=== PATIENT | female | born 1995 | race Caucasian/White ===

== ENCOUNTER 2022-10-28 07:54 | Outpatient (CLI) | payer OTHER, SELFPAY ==
--- NOTE | 2022-10-28 08:15 | CRLHL7_ITS ---
For Patients: As a result of the Century Cures Act, medical imaging exams and procedure reports are released immediately into your electronic medical record. You may view this report before your referring provider. If you have questions, please contact your health care provider. INDICATIONS: Positive ; dating and viability. Comparison: None. TECHNIQUE: Ob ultrasound. FINDINGS: Single viable intrauterine gestation of 11 weeks and 2 days duration. The crown-rump length is 4.4 cm. The diameter of the gestational sac is 4.6 cm. cardiac activity is 163 beats per minute. Right ovary is measuring 3.1 x 1.3 x 1.7 cm and the left ovary is measuring 3.9 x 2.4 x 2.7 cm. IMPRESSION: 1. Single viable intrauterine gestation of 11 weeks and 2 days duration with expected date of delivery 05/17/2023. 2. cardiac activity is 163 beats per minute. Dictated by Brian Love MD @ 10/28/2022 9:07:42 AM (Electronically Signed)
== END 2022-10-28 07:55 | disposition home or self-care (01) ==
LOC: US 07:55
PROVIDERS: Visit Provider Advanced Practice Midwife
DX: Z34.91 Encounter for supervision of normal pregnancy, unspecified, first trimester (principal); Z3A.10 10 weeks gestation of pregnancy
CPT/HCPCS: 76801; 86592; 86703; 86762; 86787; 86803; 86850; 86900; 86901; 87086; 87340

== ENCOUNTER 2023-01-02 09:57 | Outpatient (CLI) | payer OTHER, SELFPAY ==
--- NOTE | 2023-01-02 10:15 | CRLHL7_ITS ---
For Patients: As a result of the Century Cures Act, medical imaging exams and procedure reports are released immediately into your electronic medical record. You may view this report before your referring provider. If you have questions, please contact your health care provider. INDICATION: Evaluate anatomy. COMPARISON: .3 TECHNIQUE: Real time yin scale imaging of the fetus was performed as well as color Doppler analysis of the umbilical vessels. FINDINGS: Sonographic imaging demonstrates a single living intrauterine gestation. Fetus demonstrates a regular cardiac rate of 163 beats per minute. Fetus has a vertex position. The placenta lies posteriorly without evidence of placenta previa. The edge of the placenta is located 4.1 cm from the internal cervical os. Incidental placental [place] noted. Amniotic fluid volume appears normal. Single deepest vertical pocket: 4.4 cm. The cervix is closed and measures 3.4 cm in length. The composite ultrasound gestational age is calculated at 21 weeks 1 day with an estimated sonographic due date of 05/14/2023. The estimated weight is 348 grams which lies at the 57th %. The following biometric measurements were obtained: Biparietal diameter: 5.2 cm/21 weeks 6 days greater than 97th% Head circumference: 18.7 cm/21 weeks 0 days 81st% Abdominal circumference: 15.2 cm/20 weeks 3 days 53rd% Femur length: 3.2 cm/20 weeks 0 days 36th% The HC/AC ratio measures: 1.23 range (1.06-1.25) On anatomic survey, there is a normal appearance of the cerebral ventricles, cavum septi pellucidi, cisterna magna and cerebellum. The nose, lips, and facial profile appear normal. The cervical, thoracic and lumbar spine are well visualized and appear normal. There is a normal four-chamber heart view and the left and right ventricular outflow tracts appear normal. The diaphragm and stomach appear normal. The kidneys and bladder also appear normal. There is a normal three-vessel cord. Incomplete visualization of the placental cord insertion. The four extremities appear normal. IMPRESSION: Sonographic gestational age 21 weeks 1 day and sonographic due date 05/14/2023. Sonographic age is 7 days ahead of the clinical age. Normal anatomic survey. Incomplete visualization of the placental cord insertion. Dictated by Augusto Brown MD @ 01/02/2023 12:02:45 PM (Electronically Signed)
== END 2023-01-02 09:58 | disposition home or self-care (01) ==
LOC: US 09:58
PROVIDERS: Visit Provider Obstetrics & Gynecology
DX: Z34.92 Encounter for supervision of normal pregnancy, unspecified, second trimester (principal); Z3A.21 21 weeks gestation of pregnancy
CPT/HCPCS: 76805

== ENCOUNTER 2023-01-28 09:04 | Outpatient (CLI) | payer OTHER, SELFPAY ==
--- NOTE | 2023-01-28 09:15 | CRLHL7_ITS ---
For Patients: As a result of the Century Cures Act, medical imaging exams and procedure reports are released immediately into your electronic medical record. You may view this report before your referring provider. If you have questions, please contact your health care provider. Indication: visualization of placental cord insert not seen previously Technique: Grayscale and color Doppler ultrasound of the fetus performed. IMPRESSION: position vertex. Placenta posterior. heart rate 157 beats per minute. Normal amniotic fluid with single deepest pocket 5.6 cm. Eccentric cord insertion located 5 cm from the placental edge. Dictated by Augusto Brown MD @ 01/28/2023 11:03:08 AM (Electronically Signed)
== END 2023-01-28 09:05 | disposition home or self-care (01) ==
LOC: US 09:04
PROVIDERS: Visit Provider Obstetrics & Gynecology
DX: Z34.90 Encounter for supervision of normal pregnancy, unspecified, unspecified trimester (principal)
CPT/HCPCS: 76816

== ENCOUNTER 2023-02-18 08:12 | Outpatient (CLI) | payer OTHER, SELFPAY | END 2023-02-18 08:13 | disposition home or self-care (01) | LOC: NFLDREF 02-20 14:18 | PROVIDERS: Visit Provider Advanced Practice Midwife | DX: Z34.90 Encounter for supervision of normal pregnancy, unspecified, unspecified trimester (principal) | CPT/HCPCS: 87086 ==

== ENCOUNTER 2023-02-25 09:15 | Outpatient (CLI) | payer OTHER, SELFPAY | END 2023-02-25 09:16 | disposition home or self-care (01) | LOC: NFLDREF 02-27 09:09 | PROVIDERS: Visit Provider Obstetrics & Gynecology | DX: Z36.89 Encounter for other specified antenatal screening (principal); Z11.3 Encounter for screening for infections with a predominantly sexual mode of transmission | CPT/HCPCS: 86592 ==

== ENCOUNTER 2023-02-26 08:23 | Outpatient (CLI) | payer OTHER, SELFPAY | END 2023-02-26 08:24 | disposition home or self-care (01) | LOC: NFLDREF 03-01 12:21 | PROVIDERS: Visit Provider Obstetrics & Gynecology | DX: Z34.90 Encounter for supervision of normal pregnancy, unspecified, unspecified trimester (principal) | CPT/HCPCS: 82951; 82952 ==

== ENCOUNTER 2023-04-24 09:40 | Outpatient (CLI) | payer OTHER, SELFPAY ==
[2023-04-25 12:02] LABS: Strep B DNA Probe POSITIVE (Negative)
[2023-04-25 12:03] LABS: Strep B Pen/Amox Allergy No
== END 2023-04-24 09:41 | disposition home or self-care (01) ==
PROVIDERS: Visit Provider Advanced Practice Midwife
DX: Z34.93 Encounter for supervision of normal pregnancy, unspecified, third trimester (principal); Z3A.36 36 weeks gestation of pregnancy
CPT/HCPCS: 87081; 87653

== ENCOUNTER 2023-05-01 08:40 | Outpatient (CLI) | payer OTHER, SELFPAY | END 2023-05-01 08:41 | disposition home or self-care (01) | LOC: NFLDREF 05-03 06:34 | PROVIDERS: Visit Provider Advanced Practice Midwife | DX: Z34.93 Encounter for supervision of normal pregnancy, unspecified, third trimester (principal) | CPT/HCPCS: 87086 ==

== ENCOUNTER 2023-05-05 12:16 | Outpatient (CLI) | payer OTHER, SELFPAY ==
[2023-05-05 12:28] VITALS: BP 129/75; PULSE 69
[2023-05-05 12:30] VITALS: RESP 16; TEMP 36.8
[2023-05-05 13:07] VITALS: BP 119/64; PULSE 67
--- NOTE | 2023-05-05 17:37 | PC.OBNST ---
NST Note NST Note Start: 05/05/23 15:08 Freq: ONCE Status: Active Protocol: Document 05/05/23 13:15 JRConnie (Rec: 05/05/23 17:31 JRConnie [id number]) NST Note 1 Para (# of births) 0 EDC 05/21/23 Gestational Age In Weeks & Days 37 Weeks & 5 Days Patient Presented with Complaint(s) of Other Other Complaints Spots in her eyes Reactive Yes Appropriate for Gestational Age Yes RN Swetha Yao RN Date 05/05/23 Reactive Yes Appropriate for Gestational Age Yes MATTHEW Cisneros RN Date 05/05/23 OB NST charge Yes Complete NST Note via Write Note Yes The provider's electronic signature indicates the NST is reactive/appropriate for gestational age. *Note to provider: If an addendum is required, open the patient's chart and click on the note under the Nurse/Allied Health tab.
== END 2023-05-05 13:25 | disposition home or self-care (01) ==
LOC: OB OUT 12:17 → OB 12:17
PROVIDERS: Visit Provider Advanced Practice Midwife
DX: Z34.93 Encounter for supervision of normal pregnancy, unspecified, third trimester (principal); Z3A.38 38 weeks gestation of pregnancy
CPT/HCPCS: 59025; 99213

== ENCOUNTER 2023-05-29 06:48 | Inpatient (IN) | payer OTHER, SELFPAY ==
[2023-05-29] VITALS (10 sets, daily range): BP systolic 114–138; BP diastolic 56–86; PULSE 61–109; RESP 16; TEMP 36.3–37; O2SAT 98; BMI 39.2
[2023-05-29] MEDS: miSOPROStoL 25 MCG/0.25 TABLET VAGINAL ×3 (07:26→21:56)
--- NOTE | 2023-05-29 07:27 | P.LDBA_ITS ---
Subjective History of Present Illness Narrative: Patient is being admitted to Labor and Delivery for IOL for postdates at 41.1 weeks. She is a 28 year old at weeks gestation. Her full history and physical was dictated by Swetha Foster CNM on 05/01/23. Please see this for details. 1. Hx of Depression No medication or therapy 2. BMI 35 at NOB Recommended baby ASA 3. FAS: Umbilical cord insertion not visualized? * Follow up US ordered for 24 weeks: Eccentric cord insertion4. Failed 1 hr GCT (150), passed 3 hr 5. GBS positive, needs antibiotics in labor 6. Symptomatic UTI at 37wks, treated with Augmentin OB - Problem Based A/P Additional Plan (1) Encounter for induction of labor: Status: Acute (2) Obesity (BMI 35.0-39.9 without comorbidity): Status: Acute (3) Post term at 41 weeks gestation: Status: Acute Plan ASSESSMENT:? at 41.1 weeks gestation? GBS positive? Uncomplicated ? Postterm IOL? ?? PLAN:? 1. Antibiotic prophylaxis treatment per protocol when labor begins.? 2. Reviewed risks and benefits of IOL with pitocin vs cytotec. Pt prefers cytotec. Pitocin to follow if needed.? 3. Candidate for analgesia of choice. Planning epidural but also open to unmedicated depending on how things proceed.? 4. Anticipate ? 5. IV to be placed when antibiotics needed or as patient condition changes. 6. Monitoring per Cytotec policy.? Delivery/Labor/Induction Plan Plan: induction Induction method: per misoprostol protocol OB Exam Physical Exam Vital signs: Pulse BP 74 138/86 05/29/23 07:09 05/29/23 07:09 Narrative: Psychiatric:? Alert and oriented x3? HEENT:? Normocephalic, atraumatic? Neck:? Supple without adenopathy or thyromegaly? Lungs:? Clear to auscultation bilaterally? Heart:? Regular rate and rhythm, no murmur, rub or gallop? Abdomen:? Soft, nontender, and gravid? Extremities:? No edema or erythema? Pelvic:? SVE: 1cm/60-70%/-2? Membrane status:? intact? presentation:? vertex? FHT:? Moderate Variability.? Positive Accels.? No Decels. Baseline 135.? [place]:? Ctx irregular? Detailed Labor and Delivery Exam Patient Gravid: Yes Dilation (cm): 1 Effacement (%): 70 Cervix position: anterior Consistency: medium Contraction Frequency: cramping only, not feeling any contractions Fetus (Single) Station: -2 Amniotic Membrane Status: intact
[2023-05-29 07:57] LABS: Basophils Absolute Auto 0.03 K/uL (0.00-0.30); Basophils Percent Auto 0.3 % (0.0-3.0); Eosinophils Absolute Auto 0.08 K/uL (0.00-0.50); Eosinophils Percent Auto 0.8 % (0.0-7.0); Hematocrit 34.6 % (33.0-51.0); Hemoglobin* 11.4 gm/dL (12.0-16.0); Immature Granulocytes Abs Auto 0.03 K/uL (0.00-0.30); Immature Granulocytes Pct Auto 0.3 %; Lymphocytes Absolute Auto 2.62 K/uL (0.90-2.90); Lymphocytes Percent Auto 27.3 % (20-44); Mean Corpuscular HGB Conc 33 gm/dL (32-36); Mean Corpuscular Hemoglobin 30 pg (26-34); Mean Corpuscular Volume 91 fL (80-100); Monocytes Percent Auto 5.5 % (0.0-11.0); Neutrophils Percent Auto 65.8 % (42.0-72.0); Platelet Count* 158 K/uL (140-440); White Blood Count* 9.59 K/uL (4.50-11.00)
[2023-05-29 08:12] LABS: Slide Review Reflex No
--- NOTE | 2023-05-29 18:50 | PM.OBPNL ---
Subjective Date Seen: 05/29/23 Narrative: Lizy received 2 doses of vaginal Cytotec. She was chantel too frequently for a third dose so that was held. She has continued to contract every 1-3 min. She is feeling the contractions more than previously but is still comfortable with them and able to talk through them. A SVE was performed and she has changed to 2.5cm/70%/-2. Options were discussed including expectant management or Pitocin augmentation. she would like to proceed with expectant management at this time and reevaluate after a few hours. She is changeing posiitons and d the labor wam up circuit. She may try to pump to see if that increases her contractions. She was also encouraged to take a short nap if possible. Objective Vital Signs: Last Vital Signs Temp 98.6 F 05/29/23 17:59 Pulse 67 05/29/23 17:58 Resp 16 05/29/23 17:59 BP 135/75 05/29/23 17:58 Pulse Ox 98 05/29/23 13:22 Pelvic Exam Dilation (cm): 2.5 Effacement (%): 70 Station: -2 Contractions Monitor mode: External Contraction Frequency: 1-3 Contraction pattern: Regular Assessment Assessment: induction ongoing Station: -2 Status: Category l Heart Rate Baseline: 115 Medical Doctor Md Variability: Moderate (6-25) Monitor Accelerations: Present Monitor Decelerations: None Plan Plan: expectant management. GBS treatment when she becomes active.
[2023-05-30] VITALS (10 sets, daily range): BP systolic 124–143; BP diastolic 62–76; PULSE 58–95; RESP 16–18; TEMP 36.8–37.2; O2SAT 99
[2023-05-30] MEDS: CALCIUM CARBONATE 500 MG CHEW PO (01:09)
[2023-05-30] MEDS: miSOPROStoL 25 MCG/0.25 TABLET VAGINAL ×3 (02:15→12:36)
[2023-05-30] MEDS: ONDANSETRON 2 MG/ML inj 4 MG IV ×2 (08:15→20:59)
[2023-05-30] MEDS: SODIUM CHLORIDE 0.9 % (FLUSH) 10 ML SYRINGE IVF (08:15)
[2023-05-30] MEDS: LACTATED RINGERS 1000 ML 1,000 ML IV (08:47)
[2023-05-30] MEDS: DINOPROSTONE 10 MG VAGINAL INSERT VAGINAL (16:11)
--- NOTE | 2023-05-30 16:50 | PM.OBPNL ---
Subjective Time Seen by Provider: 10:00 Date Seen: 05/30/23 Narrative: Lizy continued to receive vaginal cytotec overnight when able. She would frequently have too many contractions to be able to administer then next dose which were then held until she was able to get them. She felt that overnight the contractions did increase in intensity slightly but didn't feel that they were painful only that she could tell she was having them. They palpated mild. Her cervix was checked this morning and found to be unchanged with baby less applied to the cervix. She was able to sleep some overnight. She alternated between sleeping when able and movement and position changes. Will continue with cytotec induction today as her contractions have spaced out some. Encouraged her to continue with labor warm up circuits, pumping, changing positions and resting. Objective Vital Signs: Last Vital Signs Temp 98.2 F 05/30/23 16:12 Pulse 58 L 05/30/23 16:09 Resp 16 05/30/23 16:12 BP 131/62 05/30/23 16:09 Pulse Ox 99 05/30/23 10:12 Pelvic Exam Dilation (cm): 2.5 Effacement (%): 70 Station: -2 Contractions Monitor mode: External Contraction pattern: Regular Assessment Assessment: induction ongoing Station: -3 Status: Category l Heart Rate Baseline: 115 Residential Variability: Moderate (6-25) Monitor Accelerations: Present Monitor Decelerations: None Plan Plan: Continue with Cytotec induction.
[2023-05-30] MEDS: hydrOXYzine pamoate 25 MG CAPSULE 100 MG PO (20:59)
[2023-05-30] MEDS: MORPHINE 10 MG/ML inj IM (21:00)
[2023-05-31] VITALS (19 sets, daily range): BP systolic 110–141; BP diastolic 52–75; PULSE 61–96; RESP 16–18; TEMP 36.6–37.3
[2023-05-31] MEDS: LACTATED RINGERS 1000 ML 1,000 ML 125 ML IV ×3 (05:14→20:39)
[2023-05-31] MEDS: OXYTOCIN 30 unit/500 ML in NS 30 UNIT/500 ML BAG IVPB (05:14)
[2023-05-31] MEDS: AMPICILLIN 2 GM in 0.9 % SODIUM CHLORIDE Mini-bag 100 ML IVPB (05:35)
[2023-05-31] MEDS: AMPICILLIN 1 GM in 0.9 % SODIUM CHLORIDE Mini-bag 100 ML IVPB ×4 (09:27→21:42)
--- NOTE | 2023-05-31 13:50 | PM.OBPNL ---
Subjective Time Seen by Provider: 10:00 Date Seen: 05/31/23 Narrative: Lizy has continued to contract but they have been mild. After a discussion last night the decision was made to place Cervidil. She was agreeable to this plan. She tolerated this well and was given Morphine and Vistaril for sleep over night. She did get a good nights sleep. She was started on IV Pitocin this morning after the Cervidil was removed. She is ambulating, doing labor circuit, labor warmups, and changing positions frequently. Will continue to increase the Pitocin as able per unit policy. Objective Vital Signs: Last Vital Signs Temp 97.8 F 05/31/23 11:40 Pulse 72 05/31/23 13:11 Resp 16 05/31/23 11:40 BP 121/58 L 05/31/23 13:11 Pulse Ox 99 05/30/23 10:12 Pelvic Exam Dilation (cm): 4 Effacement (%): 80 Station: -2 Contractions Monitor mode: External Contraction pattern: Irregular Contraction intensity: Mild Assessment Station: -2 Status: Category l Heart Rate Baseline: 120 [employer] Variability: Moderate (6-25) Monitor Accelerations: Present Monitor Decelerations: None Plan Plan: Induction ongoing. Continue with Pitocin titration per policy. Anticipate vaginal delivery. GBS prophylaxis is being administered. Encourage position changes and rest as able.
[2023-05-31] MEDS: SODIUM CHLORIDE 0.9 % (FLUSH) 10 ML SYRINGE IVF (22:26)
[2023-05-31] MEDS: ONDANSETRON 2 MG/ML inj 4 MG IV (22:26)
--- NOTE | 2023-05-31 23:18 | P.OBPN_ITS ---
Subjective Date Seen: 05/31/23 Narrative: Lizy has continued to contract mildly throughout the day. Around 1700 a SVE reveled that she had made very minimal cervical change despite the fact that her Pitocin was at 18mU. Baby did feel lower and more applied to the cervix at that time so with joint decision making it was decided to AROM. She had copious amounts of clear fluid at the time of rupture and it was well tolerated by both the patient and the fetus. Her contractions did gradually increase slightly in intensity after that. Around 1829 her contractions were closely spaced and the RN turned down the pitocin. It has been increased regularly since then and she is not at 18mU. Objective Vital Signs: Last Vital Signs Temp 99.2 F 05/31/23 18:39 Pulse 69 05/31/23 19:36 Resp 18 05/31/23 18:39 BP 133/68 05/31/23 19:36 Pulse Ox 99 05/30/23 10:12 Pelvic Exam Dilation (cm): 5 Effacement (%): 90 Station: -1 Contractions Monitor mode: External Assessment Assessment: induction ongoing Station: -1 Amniotic Membrane Status: AROM Status: Category l Heart Rate Baseline: 115 Longterm Variability: Moderate (6-25) Monitor Accelerations: Present Monitor Decelerations: None Plan Plan: Continue with Pitocin induction. Consider IUPC if needed to continue titrating.
[2023-06-01] VITALS (54 sets, daily range): BP systolic 94–159; BP diastolic 51–89; PULSE 49–94; RESP 16–18; TEMP 36.6–37.5; O2SAT 96–100
[2023-06-01] MEDS: AMPICILLIN 1 GM in 0.9 % SODIUM CHLORIDE Mini-bag 100 ML IVPB ×5 (02:23→16:40)
[2023-06-01] MEDS: ONDANSETRON 2 MG/ML inj 4 MG IV ×2 (02:23→11:11)
[2023-06-01] MEDS: LACTATED RINGERS 1000 ML 1,000 ML 125 ML IV (04:40)
[2023-06-01] MEDS: ROPIVACAINE 0.2 % PF 10 ML INJ 20 MG EPIDURAL (07:39)
[2023-06-01] MEDS: ROPIVACAINE 0.2% 100 ml 100 ML 12 MG EPIDURAL (07:41)
--- NOTE | 2023-06-01 07:55 | PM.ANBPRC ---
PFSH PFS Medical History (Updated 05/29/23 @ 07:32 by Elisabet Foster CNM) Episode of syncope ?R55 - Syncope and collapse (ICD-10) Surgical History (Updated 10/28/22 @ 09:15 by Fariha Dash CNM) [place] teeth removed ?K08.409 - Partial loss of teeth, unspecified cause, unspecified class (ICD-10) Hx of tonsillectomy ?Z90.89 - Acquired absence of other organs (ICD-10) Family History (Updated 05/01/23 @ 12:48 by Elisabet Foster CNM) Mother High blood pressure Depression High cholesterol Fibromyalgia Father Alcohol dependence Prostate cancer Brother No problems noted. 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 Lives with: David Pets: 2 dogs Abuse: Denies past/present Special Diet: Denies Ok with a blood transfusion: yes Culture or latter day beliefs: denies RISK FACTORS Exercise Times/wk: 3x/week walking/weight lifting Depression/Anxiety: Depression NOB JIMENA: 5 PHQ 9: 4 Seat Belt Use: Routinely Smoking: Denies past/present Alcohol/day: Denies while ; Social Caffeine: 1 pop or coffee per day Drug Use: Denies past/present Chicken Pox: Not as a child, vaccinated MRSA: Denies What is your current living situation?: I presently have a place to live Problems where you live: no known problems In the past 12 months, utilities in danger of being shut off: no In the past 12 mos, have been you worried that your food would run out before you had money to buy more?: never true In the past 12 mos, the food you bought just didn't last and you didn't have money to buy more?: never true Smoking Status: Never smoker How often does anyone, including family, friends and others, physically hurt you: never How often does anyone, including family, friends and others, insult or talk down to you: never How often does anyone, including family, friends and others, threaten you with harm: never How often does anyone, including family, friends and others, scream or curse at you: never Little interest or pleasure in doing things: not at all Feeling down, depressed, or hopeless: not at all Meds Home Medications and Allergies Home Medications Medication Instructions Recorded Confirmed Type prenat.vits,heidy,dgg-aptf-pxsfk 1 tab PO QDAY 10/28/22 05/29/23 History aspirin 81 mg tablet,delayed 81 mg PO QDAY 12/11/22 05/29/23 History release calcium carbonate 500 mg calcium 500 mg PO QDAY 03/13/23 05/29/23 History (1,250 mg) chewable tablet docusate sodium 100 mg capsule 100 mg PO QDAY PRN 05/01/23 05/29/23 History (Colace) Allergies Allergy/AdvReac Type Severity Reaction Status Date / Time No Known Drug Allergies Allergy Verified 05/21/23 12:53 Results Vital Signs Vital Signs: Last Vital Signs Temp 99.2 F 05/31/23 18:39 Pulse 65 06/01/23 07:54 Resp 18 05/31/23 18:39 BP 100/55 L 06/01/23 07:54 Pulse Ox 100 06/01/23 07:33 Weight: 105.233 kg Height: 163.83 cm Anesthesia Procedures Epidural Insertion Patient Location: OB Start Time: 07:15 Stop Time: 08:00 Start Date: 06/01/23 Stop Date: 06/01/23 Reason for Block: procedure for pain Patient Position: sitting Performed By: Bozena Valencia Preanesthetic Checklist: IV checked, risks and benefits discussed, monitors and equipment checked, timeout performed and anesthesia consent Prep: chlorhexidine gluconate Monitoring: blood pressure monitoring, continuous pulse oximetry and heart rate Approach: midline Vertebral Space: lumbar (1-5) Epidural Technique: ADRIAN saline Needle Type: Tuohy needle Injection Technique: continuous catheter Needle gauge: 17 Needle Length (cm): 10 cm Needle Insertion Depth (cm): 6 Catheter Gauge: 19 Catheter Type: multi-orifice Catheter at skin depth (cm): 12 Test Dose Result: negative and lidocaine 1.5% with epinephrine 1 to 200,000
--- NOTE | 2023-06-01 08:13 | PM.OBPNL ---
Subjective Time Seen by Provider: 07:30 Date Seen: 06/01/23 Narrative: Lizy is a G1 at 41 4/7 weeks gestation that was admitted on 05/29 for IOL for post-dates. She made slow progress with cytotec and pitocin before AROM yesterday. She has made slow progress. Pitocin has continued to be titrated. She is currently managing labor pain with nitrous. Her partner is supportive at bedside. Objective Vital Signs: Last Vital Signs Temp 99.2 F 05/31/23 18:39 Pulse 62 06/01/23 08:09 Resp 18 05/31/23 18:39 BP 95/51 L 06/01/23 08:09 Pulse Ox 100 06/01/23 07:33 Pelvic Exam Dilation (cm): 8 Effacement (%): 90 Station: -1 Contractions Monitor mode: External Contraction pattern: Regular Contraction intensity: Strong/Firm Pitocin Rate (mU/min): 22 Assessment Assessment: active labor Station: -1 Amniotic Membrane Status: AROM Status: Category l Heart Rate Baseline: 125 Mcfp Variability: Moderate (6-25) Monitor Accelerations: Present Monitor Decelerations: None Maternal Status: Coping well with nitrous but starting to feel tired and tearful. Reports intermittent pressure but has anxiety about progression. Plan Plan: ASSESSMENT:? at 41.1 weeks gestation? GBS positive? Uncomplicated ? Postterm IOL? ?? PLAN:? 1. Antibiotic prophylaxis treatment per protocol, continue every 4 hours until delivery. 2. Continue pitocin augmentation per protocol. Consider IUPC for better titration/management of Pitocin. 3. Candidate for analgesia of choice. Planning epidural but also open to unmedicated depending on how things proceed.?Discussed options and encouraged her to consider epidural for rest, she has been laboring since Thursday. 4. Continuous monitoring with IV pitocin. 5. Continue to encourage frequent position changes to ensure optimal position. 6. Anticipate ?
[2023-06-01] MEDS: OXYTOCIN 30 unit/500 ML in NS 30 UNIT/500 ML BAG 15 UNIT IVPB (11:08)
[2023-06-01] MEDS: LACTATED RINGERS 1000 ML 1,000 ML 105 ML IV (12:22)
--- NOTE | 2023-06-01 15:06 | PM.OBPNL ---
Subjective Date Seen: 06/01/23 Narrative: Lizy is a G1 at 41 4/7 weeks gestation that was admitted on 05/29 for IOL for post-dates. Her induction was started on Thursday with Cytotec. On Thursday she had cervadil overnight. Pitocin was started yesterday morning. She was then AROM'd with clear fluid last evening at 1730. This morning she has had minimal progress. Her first exam this morning was unchanged from previous, I felt her cervix was more 6-7/80/-1 this morning, anterior, and midline. Previously, cervical exam was 8/0 with cervix mostly gone on the left side. An IUPC was placed about 930 am this morning and a pitocin holiday was taken before it was restarted at 13 and slowly increased. Her MVU's are not yet adequate but patient desires cervical exam for reassurance that cervix is not swelling. She is currently on 23 units of pitocin. Objective Exam: Objective: Constitutional: Alert and oriented x3, no distress, coping well Vital signs stable, see nurse documentation Abdomen: gravid, contractions palpate moderate with contractions and soft between Vital Signs: Last Vital Signs Temp 99.5 F 06/01/23 14:52 Pulse 67 06/01/23 14:56 Resp 16 06/01/23 14:52 BP 128/60 06/01/23 14:56 Pulse Ox 100 06/01/23 07:33 Pelvic Exam Dilation (cm): 7 Effacement (%): 80 Station: -1 Contractions Monitor mode: External Contraction Frequency: not adequate, frequent Contraction pattern: Irregular Contraction intensity: Moderate Pitocin Rate (mU/min): 23 Assessment Assessment: active labor Station: -1 Amniotic Membrane Status: AROM Status: Category l Heart Rate Baseline: [address] Variability: Moderate (6-25) Monitor Accelerations: Present Monitor Decelerations: None Labor Progress: Cervical exam has been unchanged in hour despite IUPC placement, position changes, and Pitocin. Maternal Status: Coping well. Comfortable with epidural. Plan Plan: at 41.1 weeks gestation? GBS positive? Uncomplicated ? Postterm IOL? ?? PLAN:? 1. Cervical exam unchanged from this morning. Reviewed concern with no change in many hours, risk of infection, risk of bleeding, and position. Discussed options of a section with Dr. Figueroa or continue pitocin to attempt to get adequate contractions. She requested to discuss this with partner in private. Dr. Figueroa was consulted while patient was considering her options. She agrees with plan when patient ready. At this time it is not emergent, reassuring status. All questions answered. Patient notified us that she would like to proceed with section. 2. Continue epidural management for pain 3. Antibiotic prophylaxis treatment per protocol, continue every 4 hours until delivery. 4. IV Pitocin stopped. 5. Proceed with section. Care transferred to Dr. Figueroa for delivery.
[2023-06-01] MEDS: SCOPOLAMINE 1 MG/3 DAY PATCH 1 PATCH TRANSDERMA (16:05)
--- NOTE | 2023-06-01 16:21 | P.OBCN_ITS ---
OB - CN: HPI Date of Consult Time Seen by Provider: 16:30 Date Seen: 06/01/23 Patient: [facility] Patient Consult date: 06/01/23 Requesting Physician: Elisabet Foster CNM Primary Care Provider: Not a Local Provider Consult Narrative Reason for consult: arrest of labor Narrative: Lizy is a 28 year old G 1 P 0 at 34.4 weeks gestation that was admitted to the Center on 05/29/23 for postdate induction of labor. I was consulted by Fariha Dash CNM due to concern of arrest of dilation. Her induction was started on Thursday with Cytotec. On Thursday she had cervadil overnight. Pitocin was started yesterday AM. She was then AROM'd with clear fluid last evening at 1 730. She is currently >24 hours ruptured and > 30 hours on pitocin. An IUPC was placed by CHANDANA Dash this AM at 0930 and Lizy has had inadequate contractions since then. She has been unchanged since IUPC placement over 6 hours ago (/ per CHANDANA report). Currently NST is Cat I. I discussed with Lizy that it is highly unlikely that she will be able to have a vaginal delivery no matter how long we wait given her labor curve. Continuing with induction would put her and fetus at increased risk for nonreassuring heart tracing, infection, complicated delivery, hemorrhage etc. She is at high risk for hemorrhage given prolonged induction and greater than 30 hours on Pitocin. I am also concerned for chorioamnionitis as patient feels very warm to me during my physical exam. Her RN reports that her temperature has been up trending but she has not had a true fever yet. Lizy was tearful and disappointed during our discussion but she understand the situation. She is very nervous about a delivery but has a great support system. History History 1 Elective abortions Para 0 Spontaneous abortions Hx # Term Pregnancies 0 Ectopic pregnancies Hx # Pregnancies Multiple births Number of Living Children 0 Labs GBS status: positive OB Labs: Lab Assessment Start: 05/29/23 07:12 Freq: ONCE Status: Complete Protocol: PC.OBGBS Activity Type Activity Date Activity User E-sign Co-sign Detail Recorded Client Recorded Date Recorded By Document 05/31/23 05:26 AM [id number] 05/31/23 05:26 AM 05/31/23 05:26 Lab Assessment GBS Status positive Is Patient Allergic to Penicillin? No Treatment Required OK PFSH PFSH Medical History (Updated 06/01/23 @ 20:33 by Britt Figueroa MD) Episode of syncope ?R55 - Syncope and collapse (ICD-10) Surgical History (Updated 10/28/22 @ 09:15 by Fariha Dash CNM) Stella teeth removed ?K08.409 - Partial loss of teeth, unspecified cause, unspecified class (ICD- 10) Hx of tonsillectomy ?Z90.89 - Acquired absence of other organs (ICD-10) Family History (Updated 05/01/23 @ 12:48 by Elisabet Foster CNM) Mother High blood pressure Depression High cholesterol Fibromyalgia Father Alcohol dependence Prostate cancer Brother No problems noted. 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 Lives with: David Pets: 2 dogs Abuse: Denies past/present Special Diet: Denies Ok with a blood transfusion: yes Culture or church beliefs: denies RISK FACTORS Exercise Times/wk: 3x/week walking/weight lifting Depression/Anxiety: Depression NOB JIMENA: 5 PHQ 9: 4 Seat Belt Use: Routinely Smoking: Denies past/present Alcohol/day: Denies while ; Social Caffeine: 1 pop or coffee per day Drug Use: Denies past/present Chicken Pox: Not as a child, vaccinated MRSA: Denies What is your current living situation?: I presently have a place to live Problems where you live: no known problems In the past 12 months, utilities in danger of being shut off: no In the past 12 mos, have been you worried that your food would run out before you had money to buy more?: never true In the past 12 mos, the food you bought just didn't last and you didn't have money to buy more?: never true Smoking Status: Never smoker How often does anyone, including family, friends and others, physically hurt you : never How often does anyone, including family, friends and others, insult or talk down to you: never How often does anyone, including family, friends and others, threaten you with harm: never How often does anyone, including family, friends and others, scream or curse at you: never Little interest or pleasure in doing things: not at all Feeling down, depressed, or hopeless: not at all Meds Home Medications and Allergies Home Medications Medication Instructions Recorded Confirmed Type prenat.vits,heidy,pqu-wyve-rizrr 1 tab PO QDAY 10/28/22 05/29/23 History aspirin 81 mg tablet,delayed 81 mg PO QDAY 12/11/22 05/29/23 History release calcium carbonate 500 mg calcium 500 mg PO QDAY 03/13/23 05/29/23 History (1,250 mg) chewable tablet docusate sodium 100 mg capsule 100 mg PO QDAY PRN 05/01/23 05/29/23 History (Colace) Allergies Allergy/AdvReac Type Severity Reaction Status Date / Time No Known Drug Allergies Allergy Verified 05/21/23 12:53 OB - H&P: Exam Physical Exam: Vital signs: Temp Pulse Resp BP Pulse Ox 99.4 F 60 16 111/56 L 100 06/01/23 15:35 06/01/23 16:13 06/01/23 15:35 06/01/23 16:13 06/01/23 07:33 Narrative: Physical exam: General: Appropriately tearful Psych: Alert and oriented x3, full affect HEENT: Normocephalic, atraumatic Lungs: Unlabored breathing Neuro: No focal deficit. Mentating appropriately Abdomen: Gravid. Soft, nontender, nondistended Extremity: 3+ bilateral pitting lower extremity edema up to her thighs Pelvic exam: Deferred to OR OB - CN: A/P Assessment and Plan (1) Encounter for induction of labor: Status: Acute (2) Obesity (BMI 35.0-39.9 without comorbidity): Status: Acute (3) Post term at 41 weeks gestation: Status: Acute (4) Chorioamnionitis: Status: Acute Plan - Arrest of dilation - Lizy was consented for section and blood. She understands that the three main categories of risk include bleeding, infection, and damage to surrounding structures. Regarding infection, she understands that we will be delivering appropriate antibiotics, however that the risk of infection following section still is approximately 5%. I suspect she has chorioamnionitis and will treat her with triple antibiotics. She understands that though the risk is very low that there is always a risk of damage to the bladder, uterus, ovaries, fallopian tubes, bowels, ureters, or even the fetus. She understands that most injuries can be addressed at the time of surgery, however, such an injury may require additional surgeries to fix. Lastly, she understands that a section carries a risk of bleeding, and that while this bleeding can be addressed with multiple medical and surgical modalities, that there is the possibility of needing a blood transfusion. She has two units typed and crossed due to O negative blood shortage. She reports she would accept a blood transfusion understanding the risks of a 1/200,000 risk of Hepatitis and 1/2,000,000 risk of HIV as well as the risk of having an allergic reaction to the blood products. She further understands that this reaction is typically mild, however can be severe including respiratory distress and necessitating ICU-level care. Lastly, she understands that a section does increase risks for future pregnancies and deliveries including, but not limited to, the risk of uterine rupture or placenta accreta. - Hgb 11.4/158 - Will proceed with primary delivery
[2023-06-01] MEDS: LACTATED RINGERS 1000 ML 1,000 ML 120 ML IV (16:52)
[2023-06-01] MEDS: metroNIDAZOLE 500 MG/100 ML PIGGYBACK 100 MG IVPB (17:11)
[2023-06-01] MEDS: LOPERAMIDE HCL 2 MG CAPSULE 4 MG PO (18:05)
--- NOTE | 2023-06-01 18:11 | W.ANESCHARGE ---
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
--- NOTE | 2023-06-01 18:12 | P.NB_ITS ---
Nerve Block Nerve Block Time Seen by Provider: 17:55 Date Seen: 06/01/23 Type of block requested by surgeon for post-operative analgesia: TAP Side: bilateral Time out performed: Yes Verification of patient name: Yes Verification of date of : Yes Site marking: not applicable Name of person performing procedure: josy Continuous monitoring Was continuous monitoring of O2 sat, B/P, cardiac exercise physiologist, recorded every 15 minutes?: Yes Procedure Checklist: sterile prep, needles and gloves Ultrasound guided. Images saved: Yes Medications given in 5ml increments after negative aspiration: Marcaine %: 0.25 mL: 30 Needle gauge: 20 and Exparel mL: 10 Patient tolerated procedure well: Yes Block Charges Block Charge (with Pro Fee): TAP Bilateral Use of Ultrasound Machine for Block: Yes- US Guidance/pain block
--- NOTE | 2023-06-01 20:35 | PM.OBPRCCS ---
Procedure Time Seen by Provider: 17:00 Date of procedure: 06/01/23 Procedure Done: Global Will [facility] bill your pro fee for this procedure?: Yes Procedure Description: DELIVERY BY SECTION Date of Service: 06/01/2023 Delivery time: 1657 Summary: Admitted for induction of labor at 41 weeks, primary lower uterine transverse section, Pfannenstiel, Laufe forceps assisted delivery, Closed with suture, QBL 559 cc, severe uterine atony/chorioamnionitis Findings: Cervical exam in the OR revealed 6/75/-2. head was unexpectedly high given her prolonged induction. Caput noted to -1 but skull station was -3/-2. Copious amount of purulent discharge with malodor noted on glove after SVE. Blood tinged urine prior to surgery noted. Bladder full despite Ding catheter in place. was in OT position and covered with meconium and purulent discharge. Nuchal cord x 2, umbilical cord around body and right ankle. Placenta with thick green discharge (sent to pathology). Severe uterine atony after delivery of the baby. 2 x 1 cm lower uterine segment hematoma noted on left uterine angle (non expanding). Otherwise, structurally normal uterus, bilateral ovaries and tubes 8/9, weight 4130 g. Primary Indication: Arrest of dilation Chorioamnionitis Procedures: Primary Lower uterine transverse section Specimens Removed: Placenta Surgeon: Britt Figueroa MD Veneer Joiner Surgeon: Randolph Anesthesia: Epidural and TAP block Report: Prophylactic antibiotic, 2g ampicillin, 5mg/kg gentamicin, 500 mg metronidazole was given before incision. After arrival to the operating room patient was placed in the supine position with left lateral tilt after redosing of epidural anesthesia. Laparotomy A pfannenstiel incision was made through the anterior abdominal wall with #10 scalpel approximately 2 cm above the pubic symphysis. The incision was extended sharply with the #10 scalpel through the subcutaneous tissue to the level of fascia. The fascia was entered sharply with a #10 scalpel (Pfannenstiel) in the midline and extended in semi-elliptical fashion with digits. The rectus muscles were in the midline bluntly with digits. The peritoneum was then entered bluntly. The peritoneal incision was then extended superiorly and inferiorly under direct visualization with care being taken to avoid bladder and bowel. No adhesions were noted. The peritoneal incision was enlarged bluntly by lateral traction from the surgeon's and engineer first assistant's hand. Olivier retractor was inserted into the abdomen. Delivery A bladder flap was developed by grasping with Moldovan forcep and enter with Metzenbaun scissor. Then sharp and blunt dissection with Metzenbaum scissor and fingers were performed. A low transverse hysterotomy was made then with #10 scalpel and extended laterally and cephalad with fingers in a low transverse fashion with Manu Andino technique with care being taken to avoid injury to the fetus. The amniotic cavity (membrane) was then entered with spontaneous rupture of membrane, and the amniotic fluid was noted to be thick meconium. Unable to delivery head with fundal pressure times and fetus feels tethered. Decision was made with place Laufe forceps to assist with delivery. Laufe forceps placed at appropriate positions and articulated easily. Gentle traction was use to delivery head and forceps was disarticulated with the delivery of the head. Fetus was delivered cephalic. Fetus wrapped in umbilical cord as stated above, reduced. With delivery of the baby, no extension was noted. Placenta was delivered spontaneously with steady traction on cord and manual separation of placenta from uterine wall. Closure Uterine cavity was cleaned after placental delivery with lap sponge x 3. The hysterotomy was closed in one layer with stitches using 0 Vicryl with continuous locking stitches. An imbricating layer was placed with 0 Monocryl. Two yfnbog-il-doeant were placed at bilateral uterine angle. A 2 x 1 cm lower uterine segment hematoma was noted at the left uterine angle. This was non expanding. Hemostasis was achieved as needed with electrocautery. Luis was apply to the hysterotomy and bladder flap due to friable tissue. The ovaries/tubes/uterine surface were evaluated. They were as stated above. Olivier retractor removed and hemostasis was confirmed again. Fascia was closed with running stitches using 0 Vicryl. Hemostasis was checked for and found to be adequate. The subcutaneous layer was closed with running 2-0 chromic sutures. The skin was closed with Vicryl subcuticular sutures. The incision was cleaned and covered with Steri-Strips and silver dressing. Intraoperative Complications: Sever uterine atony QBL: 559 cc Uterotonics: 40 u of pitocin, 1g of TXA x1, Methergine x1, Hemabate x2 Disposition: The patient tolerated the procedure well. She was recovered in Obstetric PACU for close monitoring in stable condition, with a contracted uterus and normal transvaginal bleeding. The infant was sent to mother?s bedside/PACU. The placenta was sent to pathology. [place] Infant total score - 1 minute: 8 total score - 5 minute: 9
[2023-06-01] MEDS: DOCUSATE SODIUM 100 MG CAPSULE PO (21:48)
[2023-06-01] MEDS: ACETAMINOPHEN 500 MG TABLET 1000 MG PO (21:48)
[2023-06-01] MEDS: AMPICILLIN 2 GM in 0.9 % SODIUM CHLORIDE Mini-bag 100 ML IVPB (22:45)
[2023-06-01] MEDS: KETOROLAC 30 MG/ML inj IVP (23:08)
[2023-06-02] VITALS (19 sets, daily range): BP systolic 102–119; BP diastolic 63–76; PULSE 53–75; RESP 14–18; TEMP 36.6–36.8; O2SAT 95–99
[2023-06-02] MEDS: KETOROLAC 30 MG/ML inj IVP ×4 (00:40→18:13)
[2023-06-02] MEDS: metroNIDAZOLE 500 MG/100 ML PIGGYBACK 100 MG IVPB ×3 (00:42→19:12)
[2023-06-02] MEDS: ACETAMINOPHEN 500 MG TABLET 1000 MG PO ×3 (04:06→20:49)
[2023-06-02] MEDS: AMPICILLIN 2 GM in 0.9 % SODIUM CHLORIDE Mini-bag 100 ML IVPB ×3 (04:51→18:24)
[2023-06-02 06:28] LABS: Hemoglobin* 10.6 gm/dL (12.0-16.0)
--- NOTE | 2023-06-02 08:42 | P.OBPN_ITS ---
OB - PN:Subj Subjective Time Seen by Provider: 08:43 Date Seen: 06/02/23 Interval history: Lizy is a 28 y.o. who was admitted to [facility] for IOL.? She had a primary c- section complicated by chorioamnionitis.? ? ? Narrative: The patient feels well.? The pain is well controlled with current medications.? She has no new complaints.? She is breast feeding and reports things are going well.? the patient has done well.? Vitals have been stable.? She has remained afebrile.? Has a good appetite, is tolerating a general diet.? Her catheter was just removed, and she has not voided yet.? She is passing gas and has not had a bowel movement.? She is ambulating and denies any dizziness.? Has Small amount of rubra lochia.? OB - PN: Obj Exam Physical Exam: Vital signs: Temp Pulse Resp BP Pulse Ox O2 Del Method 98 F 75 18 109/71 98 Room Air 06/02/23 08:21 06/02/23 08:21 06/02/23 08:21 06/02/23 08:21 06/02/23 08:21 06/02/23 08:21 Narrative: VSS.? Afebrile? GENERAL APPEARANCE:? normal affect, alert, no distress? MOOD:? appropriate? HEENT: normocephalic, neck supple, full ROM? CHEST:? Symmetrical chest wall movement.? Normal respiratory effort.? Clear to auscultation? HEART:? regular rate and rhythm? ABDOMEN:? soft, non-tender. Uterine fundus is firm, at Umbilicus, Midline and is appropriate for the stage of recovery.? Bowel sounds present.? EXTREMITIES:? normal and +2 edema? SKIN: warm, dry.? Dressing on, clean/dry/intact.? ? No signs of infection noted.? OB - PN: Obj Data Labs Labs: Laboratory Results - last 24 hr 05/29/23 06/02/23 07:38 06:01 Hgb 10.6 L Crossmatch (AHG) See Detail OB - PN: A/P Delivery Assessment and Plan (1) Obesity (BMI 35.0-39.9 without comorbidity): Status: Acute (2) Post term at 41 weeks gestation: Status: Acute (3) Chorioamnionitis: Status: Acute (4) examination following delivery: Status: Acute (5) Lactating mother: Status: Acute Plan Comments: Assessment/Plan? G 1 P 1 status post primary complicated by chorioamnionitis.? ?? 1.? Continue route PP cares? 2.? .? May see if desired? 3.? Anticipate discharge home tomorrow or the following day per pt preference? 4. Chorioamnionitis ?Consulted Dr. Hall. Decision made to continue with antibiotics for 48 hours based on state of placenta. 5. Will continue to monitor BPs, elevated shortly after delivery, but WNL since.
[2023-06-02] MEDS: DOCUSATE SODIUM 100 MG CAPSULE PO (09:36)
[2023-06-02] MEDS: ENOXAPARIN 40 MG/0.4 ML INJ SUBCUT (09:36)
[2023-06-02] MEDS: OXYCODONE 5 MG TABLET PO ×3 (09:37→20:50)
[2023-06-03] VITALS (7 sets, daily range): BP systolic 111–127; BP diastolic 68–79; PULSE 52–64; RESP 14–18; TEMP 36.7–37.2; O2SAT 95–98
[2023-06-03] MEDS: IBUPROFEN 600 MG TABLET PO ×4 (00:06→19:31)
[2023-06-03] MEDS: AMPICILLIN 2 GM in 0.9 % SODIUM CHLORIDE Mini-bag 100 ML IVPB ×3 (00:07→12:11)
[2023-06-03] MEDS: OXYCODONE 5 MG TABLET PO ×4 (03:07→22:53)
[2023-06-03] MEDS: ACETAMINOPHEN 500 MG TABLET 1000 MG PO ×4 (03:07→22:53)
[2023-06-03] MEDS: metroNIDAZOLE 500 MG/100 ML PIGGYBACK 100 MG IVPB ×2 (03:07→11:02)
[2023-06-03] MEDS: DOCUSATE SODIUM 100 MG CAPSULE PO (09:42)
[2023-06-03] MEDS: ENOXAPARIN 40 MG/0.4 ML INJ SUBCUT (09:47)
[2023-06-03] MEDS: SIMETHICONE 80 MG TAB.CHEW PO (14:41)
--- NOTE | 2023-06-03 15:53 | P.OBPN_ITS ---
OB - PN:Subj Subjective Date Seen: 06/03/23 Interval history: Lizy is a 28 y.o. who was admitted to [facility] & [facility] for IOL.? She had a primary c- section complicated by chorioamnionitis.?The patient feels well.? The pain is well controlled with current medications.? She has no new complaints.? Urinary output is adequate and she is voiding without difficulty.? Has a good appetite, is tolerating a general diet, is passing flatus, and has had a bowel movement.? Has scant amount of rubra lochia.? She is ambulating well.?She denies pain, chills or body aches. She had wanted to discharge but after consultation with Dr. Figueroa it was recommended that she stay for 12 hours after antibiotics to monit or for s/sx of infection. She is agreeable to this plan and would like to discharge tomorrow morning. ? ? Patient comments OB post-: no complaints, pain well controlled, tolerating diet and flatus present status: and doing well feeding status: exclusively OB - PN: Obj Exam Physical Exam: Vital signs: Temp Pulse Resp BP Pulse Ox O2 Del Method 98.3 F 60 16 111/68 95 Room Air 06/03/23 13:24 06/03/23 13:24 06/03/23 13:24 06/03/23 13:24 06/03/23 13:24 06/03/23 13:24 Narrative: GENERAL APPEARANCE:? normal affect, alert, no distress? MOOD:? appropriate? CHEST:? clear to auscultation and percussion? HEART:? regular rate and rhythm? ABDOMEN:? soft, non-tender the uterine fundus is U/2 and is appropriate for the stage of recovery.?? EXTREMITIES:? normal and no edema? OB - PN: A/P Delivery Assessment and Plan (1) Obesity (BMI 35.0-39.9 without comorbidity): Status: Acute (2) Chorioamnionitis: Status: Acute (3) examination following delivery: Status: Acute (4) Lactating mother: Status: Acute Plan 28 year old on day 2.? 1. cares.? 2. Anticipate discharge tomorrow.? 3. Antibiotics discontinued. Monitor tempature. Plan day: 2 Plan: routine care
[2023-06-03] MEDS: ONDANSETRON ODT 4 MG TAB PO (22:39)
[2023-06-04] MEDS: IBUPROFEN 600 MG TABLET PO ×2 (02:22→08:15)
[2023-06-04 02:27] VITALS: TEMP 36.9
[2023-06-04] MEDS: ACETAMINOPHEN 500 MG TABLET 1000 MG PO ×2 (05:20→11:05)
[2023-06-04] MEDS: OXYCODONE 5 MG TABLET PO ×2 (05:21→11:05)
[2023-06-04] MEDS: SIMETHICONE 80 MG TAB.CHEW PO (05:21)
[2023-06-04] MEDS: MAGNESIUM HYDROXIDE 30 ML ORAL.SUSP PO (05:22)
[2023-06-04 05:31] VITALS: BP 132/84; PULSE 62; RESP 15; TEMP 36.5; O2SAT 97
[2023-06-04 08:06] VITALS: BP 120/78; PULSE 66; RESP 16; TEMP 36.7; O2SAT 97
[2023-06-04] MEDS: DOCUSATE SODIUM 100 MG CAPSULE PO (08:15)
--- NOTE | 2023-06-04 08:42 | P.DS_ITS ---
DS: Providers Provider Time Seen by Provider: 08:42 Date Seen: 06/04/23 Date of admission: 05/29/23 06:48 Primary care physician: Not a Local Provider Admitting Clinician: Elisabet Foster CNM Attending Physician on discharge: Elisabet Foster CNM Date of Discharge: 06/04/23 DS: Diagnosis Discharge Diagnosis (1) examination following delivery: Status: Acute (2) Lactating mother: Status: Acute (3) Chorioamnionitis: Status: Acute Exam Narrative: Exam Narrative: VSS. ?Afebrile GENERAL APPEARANCE: ?normal affect, alert, no distress MOOD: ?appropriate HEENT: normocephalic, neck supple, full ROM CHEST: ?Symmetrical chest wall movement. ?Normal respiratory effort. ?Clear to auscultation HEART: ?regular rate and rhythm ABDOMEN: ?soft, non-tender. Uterine fundus is firm, at Umbilicus, Midline and is appropriate for the stage of recovery. ?Bowel sounds present. EXTREMITIES: ?normal and +1 edema SKIN: warm, dry. ?Dressing on, clean/dry/intact. ?No signs of infection noted. Aware to remove at 7 days Const: Vital Signs, click to edit/add: Vital Signs - 24 hr 06/03/23 09:30 06/03/23 13:24 06/03/23 17:00 Temperature 99 F 98.3 F 98.6 F Pulse Rate [Pulse Oximeter] 64 60 63 Respiratory Rate 18 16 18 Blood Pressure [Le ft Arm] 123/73 111/68 118/73 Pulse Oximetry 97 95 97 Oxygen Delivery Me thod Room Air Room Air Room Air 06/03/23 19:38 06/03/23 22:58 06/04/23 02:27 Temperature 98.5 F 98.0 F 98.5 F Pulse Rate [Pulse Oximeter] 55 L 55 L Respiratory Rate 16 14 Blood Pressure [Le ft Arm] 127/76 126/79 Pulse Oximetry 97 98 Oxygen Delivery Me thod Room Air Room Air 06/04/23 05:31 06/04/23 08:06 Temperature 97.7 F 98.0 F Pulse Rate [Pulse Oximeter] 62 66 Respiratory Rate 15 16 Blood Pressure [Le ft Arm] 132/84 120/78 Pulse Oximetry 97 97 Oxygen Delivery Me thod Room Air OB - DS: Summary Hospital Course Hospital Course: Lizy is a 28 y.o. G 1 P 1 who was admitted to [facility] & [facility] for IOL for post dates. ?She had an complicated by chorioamnionitis. ? The patient feels well. ?The pain is well controlled with current medications. ?She has no new complaints. ?She is breast feeding and reports things are overall going well.? the patient has done well.? Vitals have been stable, she has remained afebrile.? She has remained afebrile.? Has a good appetite, is tolerating a general diet. ?She is voiding without difficulty.? She is passing gas and has not had a bowel movement.? She is ambulating and denies any dizziness.? Has Small amount of rubra lochia. She is planning IUD for prevention. Problems: chorioamnionitis plan: Discharge home with baby. Follow up in 2 weeks and 6 weeks. , may follow up with if needed Reviewed comfort measures for constipation including safe medications. Peripartum Data delivery method: Primary C/S; Labored Procedures: Procedures Operation Date: 06/01/23 16:15 Actual Procedure Side Surgeon p Section Britt Figueroa MD complications: none [place] Gender: Male Infant Discharge Plan: Home Status at Discharge Functional status at discharge: independent ambulation Overall status at discharge: patient is progressing back to baseline Time Spent with Patient Time attestation: Total time spent providing and/or coordinating discharge services: Time spent: Less than 30 minutes Discharge Plan Discharge Disposition: Home, Self-Care Date of Admission: 05/29/23 06:48 Attending Provider on Discharge: Claire Garrido Primary Care Provider: Provider,Not a Local Condition: Stable Anticipated Discharge Date/Time: 06/04/23 10:00 Discharge Medications: New docusate sodium 100 mg Capsule 100 mg PO BID PRNQty: 100 0RF Rx Instructions: Take 1 cap 1-2 times a day as needed for constipation ibuprofen 600 mg Tablet 600 mg PO Q6H PRN (Reason: Pain) Qty: 60 0RF oxycodone 5 mg Tablet 5 - 10 mg PO Q4H PRN (Reason: Pain) Qty: 20 0RF Continued prenat.vits,heidy,dqr-bxrf-djjjn Tablet 1 tab PO QDAY calcium carbonate 500 mg calcium (1,250 mg) tablet,chewable 500 mg PO QDAY docusate sodium [Colace] 100 mg capsule 100 mg PO QDAY PRN Discontinued aspirin 81 mg tablet,delayed release (DR/EC) 81 mg PO QDAY ondansetron HCl 4 mg tablet 4 mg PO Q6-8H PRN (Reason: nausea and vomiting) Qty: 30 2RF Discharge Orders: Discharge Order (Routine); Ordered 06/04/23 Ordered By: Claire Garrido Patient Education: OB Over the Counter Medication Information, OB /Breast Feeding Additional Instructions: Follow up in 2 weeks and 6 weeks Remove dressing n 7 days, call if concerns for infection are present Activity Level: Activity as Tolerated Discharge Diet: Regular Follow Up Appointments: Provider,Not a Local [Primary Care Provider] - [facility]
[2023-06-04] MEDS: ENOXAPARIN 40 MG/0.4 ML INJ SUBCUT (10:12)
== END 2023-06-04 11:15 | disposition home or self-care (01) | DRG 786 ==
PROVIDERS: Obstetrics & Gynecology; Admitting Provider Advanced Practice Midwife; Visit Provider Advanced Practice Midwife
PROC: 10D00Z1 Extraction of Products of Conception, Low, Open Approach (ICD-10-PCS; CPT 59514; principal; 2023-06-01 16:00)
DX: O48.0 Post-term pregnancy (principal); O41.1230 Chorioamnionitis, third trimester, not applicable or unspecified; O72.1 Other immediate postpartum hemorrhage; O62.0 Primary inadequate contractions; O42.12 Full-term premature rupture of membranes, onset of labor more than 24 hours following rupture; O63.0 Prolonged first stage (of labor); O66.40 Failed trial of labor, unspecified; O99.824 Streptococcus B carrier state complicating childbirth; Z3A.41 41 weeks gestation of pregnancy; Z37.0 Single live birth; G89.18 Other acute postprocedural pain
CPT/HCPCS: 01967; 01968; 36415; 59200; 64488; 76942; 85018; 85025; 86850; 86900; 86901; 86922; 88307; 99140; A9270; C9290; J0290; J0456; J0665; J1100; J1200; J1580; J1650; J1885; J2210; J2250; J2270; J2274; J2371; J2405; J2590; J2765; J2795; J3010; J7120; S0030

== ENCOUNTER 2024-04-14 15:36 | Outpatient (CLI) | payer OTHER, SELFPAY ==
--- OUTSIDE RECORDS SUMMARY | 2024-04-18 15:35 | XMS_ITS | Referral Summary ---
Author Organization [facility] Address [address] [place] [address] Care Team Providers Care Client Experience Specialist Name Role Phone Danette Abreu M.D. Primary Care Provider +1- [phone] Source Comments Patient records contain information from all sites at [facility]. For routine questions regarding patient records, call [phone] during business hours, M-F 8:00 AM - 5:00 PM Central Time. Record requests for emergency care only can be directed to [phone] at any time.[facility] Allergies No known active allergies Medications Medication Sig Dispensed Refills Start Date End Date Status ibuprofen (ADVIL,MOTRIN) 200 mg tablet Take 200 mg by mouth every 6 (six) hours as needed for pain. Active escitalopram (LEXAPRO) 10 mg tablet Take 1 tablet (10 mg total) by mouth daily. 90 tablet 3 07/17/2021 Active Additional Information Patient not taking.Reported on 04/27/2022 vit B complex 100 no.2/herbs (VITAMIN B COMPLEX 100 2-HERBS ORAL) Take 1 tablet by mouth daily. 10/26/2021 Active CHOLECALCIFEROL, VITAMIN D3, ORAL Take 1 capsule by mouth daily. 10/26/2021 Active copper (PARAGARD) IUD 1 each by intrauterine route continuously. Inserted 11/22/21, to be taken out 11/22/31 Active Active Problems No known active problems Resolved Problems Problem Noted Date Diagnosed Date Resolved Date Surveillance Intrauterine Device 01/22/2018 06/19/2021 Discharge Vaginal 01/22/2018 06/09/2019 Immunizations Name Administration Dates Next Due 4vHPV (discontinued) 07/31/2014,08/01/2013,05/06 DTP / Hib 1997,1997,1997 DTaP (Infanrix, Tripedia) 04/19/2002 DTaP / Hib 07/18/1998 DTaP, Unspecified 04/19/2002 H1N1 All Forms 10/10/2009 HepA Pediatric/Adolescent 07/31/2014,08/01/2013 HepB Pediatric/Adolescent 01/08/1998,1997, 1997 IPV 04/19/2002,1997 Influenza, Seasonal, Injectable 08/28/2021 MCV4 (Menactra)(Discontinued) 06/06/2009 MCV4 (Menveo) 08/01/2013 MCV4, Unspecified 08/01/2013,06/06/2009 MMR 06/09/2000,07/18/1998 OPV 07/18/1998,1997 OPV, Unspecified 07/18/1998,1997 PPD Test 06/17/2018 SARS-COV-2 (COVID-19) - PFIZ ER (Discontinued)(12 years or older) 11/22/2021(Deferred: Patient Refused),11/08/2020,10/18/2020 Td Preservative Free (TENIVA C, DECAVAC) 06/24/2019 Tdap 06/06/2009 KOLE 06/06/2009,07/18/1998 influenza vaccine quad (FLUZONE/FLUARIX) (6 months and older)(PF) 08/02/2020,07/25/2019,07/23/2018,2017,08/08/2015 Social History Tobacco Use Types Packs/Day Years Used Date Smoking Tobacco: Never Smokeless Tobacco: Never Alcohol Use Standard Drinks/Week Comments Yes 0 (1 standard drink = 0.6 oz pur e alcohol) Humiliation, Afraid, Rape, and Kick questionnair e Answer Date Recorded Within the last year, have y ou been afraid of your partner or ex-partner? No 11/22/2021 Within the last year, have y ou been humiliated or emotionally abused in other ways by your partner or ex-partner? No Within the last year, have y ou been kicked, hit, slapped, or otherwise physically hurt by your partner or ex-partner? No 11/22/2021 Within the last year, have y ou been raped or forced to have any kind of sexual activity by your partner or ex-partner? No 11/22/2021 Social Connection and Isolation Panel [NHANES] A nswer Date Recorded In a typical week, how many times do you talk on the phone with family, friends, or neighbors? Three times a week 11/22/19 How often do you get togethe r with friends or relatives? Once a week 11/22/2021 How often do you attend chur ch or yazidi services? Never 11/22/2021 Do you belong to any clubs o r organizations such as congregational groups, unions, fraternal or athletic groups, or school groups? No 11/22/2021 How often do you attend meet ings of the clubs or organizations you belong to? Never 11/22/2021 Are you , , di vorced, , never , or living with a partner? Living with partner 11/22/2021 AUDIT-C Answer Date Recorded Q1: How often do you have a drink containing alc ohol? 2-4 times a month 11/22/2021 Q2: How many drinks containi ng alcohol do you have on a typical day when you are drinking? 1 or 2 11/22/2021 Q3: How often do you have si x or more drinks on one occasion? Less than monthly 11/22/2021 Overall Financial Resource Strain (CARDIA) Answe r Date Recorded How hard is it for you to pa y for the very basics like food, housing, medical care, and heating? Not hard at all 11/22/2021 PHQ-2 Answer Date Recorded PHQ-2 Score 0 11/22/2021 [facility] - Occupational Stress Questionnaire Answer Date Recorded Do you feel stress - tense, restless, nervous, or anxious, or unable to sleep at night because your mind is troubled all the time - these days? To some extent 11/22/2021 Exercise Vital Sign Answer Date Recorde d On average, how many days pe r week do you engage in moderate to strenuous exercise (like a brisk walk)? 3 days 11/22/2021 On average, how many minutes do you engage in exercise at this level? 40 min 11/22/2021 Hunger Vital Sign Answer Date Recorded Within the past 12 months, y ou worried that your food would run out before you got the money to buy more. Never true 11/22/19 22 Within the past 12 months, t he food you bought just didn't last and you didn't have money to get more. Never true 11/22/2021 PRAPARE - Transportation Answer Date Re corded In the past 12 months, has l ack of transportation kept you from medical appointments or from getting medications? No 10/27 In the past 12 months, has l ack of transportation kept you from meetings, work, or from getting things needed for daily living? No 11/22/2021 Housing Stability Vital Sign Answer Colt e Recorded In the last 12 months, was t here a time when you were not able to pay the mortgage or rent on time? No 11/22/2021 In the last 12 months, how many places have you lived? 1 11/22/2021 In the last 12 months, was t here a time when you did not have a steady place to sleep or slept in a longterm (including now)? No 11/22/2021 Depression Answer Date Recor ded PHQ-9 Total Score (max 27) 3 06/19 Nutrition Answer Date Recorded Nutrition: EVOO Fat Source Yes 11/22 On average, how many serving s of fruits and vegetables do you eat per day (serving size is equal to 1 cup or approximately the size of a tennis ball)? 2-3 11/22/2021 Dental Answer Date Recorded Dental: Regular Dentist Yes 06/19/20 21 Employment Answer Date Recorded Employment status Employed and actively working without restrictions 11/22/2021 Education Answer Date Recorded What is the highest level of school you have completed or the highest degree you have received? Bachelor's degree (e.g., BA, AB, BS) 04/03/2020 Sex and Gender Information Value Date Recorded Sex Assigned at Female 01/17/2018 9:41 PM CDT Gender Identity Female 01/17/2018 9:41 PM CDT Sexual Orientation Straight 01/17/2018 9: 41 PM CDT Last Filed Vital Signs Vital Sign Reading Time Taken Comments Blood Pressure 130/83 04/27/2022 10:27 AM CDT Pulse 69 04/27/2022 10:27 AM CDT Temperature 36.6 ??C (97.9 ??F) 04/27/2022 10:27 AM C DT Respiratory Rate 16 04/27/2022 10:27 AM CDT Oxygen Saturation 98% 04/27/2022 10:27 AM CDT Inhaled Oxygen Concentration - - Weight 90.5 kg (199 lb 8.3 oz) 04/27/2022 10:27 AM CDT Height 165.1 cm (5' 5) 06/19/2021 11:17 AM CDT Body Mass Index 33.2 06/19/2021 11:17 AM CDT Plan of Treatment Not on file Procedures Procedure Name Priority Date/Time Associated Diagnosis Comments THINPREP SCREEN HPV REFLEX Routine 06/19/2021 1:26 PM CDT Preventive Gynecological Exam CHLAMYDIA/GONORRHO EAE AMPLIFIED RNA Routine 02/10/2018 10:46 AM CDT Discharge Vaginal from Last 3 Months or Most Recently Relevant to Health Maintenance Results * ThinPrep Screen HPV Reflex (06/19/2021 1:26 PM CDT) 07/08/2021 1:31 PM CDT [facility] Report electronically signed by АННА Valdez. Ch.B. I verify that I have examined all relevant slides/materials for the specimen(s) and rendered or confirmed the diagnosis. 07/08/2021 1:31 PM CDT [facility] Gross Description Received specimen in a ThinPrep vial. 07/08/2021 1:31 PM CDT [facility] Pap Test Source Cervical/Endocervi heidy 07/08/2021 1:31 PM CDT [facility] Hormone Therapy/Contracep tives None/Not known 07/08/2021 1:31 PM CDT [facility] Interpretation Cervical/Endocervi heidy ??(ThinPrep): Satisfactory for Evaluation Negative for Intraepithelial Lesion or Malignancy Reactive cellular changes associated with: ? Reparative or inflammatory changes 07/08/2021 1:31 PM CDT [facility] Varies (Cervix/Endocerv ix) 06/19/2021 1:26 PM CDT 06/20/2021 9:10 AM CDT Danette Abreu M.D. LAB PAP PATHDX ORD ERABLES Performing Organization Address City/[facility]/ZIP Co de Phone Number [facility] [address] [place] [address], [facility] [address] [place] [address] * Chlamydia / gonorrhoeae Amplified RNA Cervix/Endocervix (02/10/2018 10:46 AM CDT) Source VAGINA 02/10/2018 6:26 PM CDT [facility] Chlamydia trachomatis amplified RNA Negative Negative 02/10/2018 6:26 PM CDT [facility] Comment: ----ADDITIONAL INFORMATION---- This report is intended for use in clinical monitoring and management of patients. It is not intended for use in medical-legal applications. Source VAGINA 02/10/2018 6:26 PM CDT [facility] Neisseria gonorrhoeae amplified RNA Negative Negative 02/10/2018 6:26 PM CDT [facility] Comment: ----ADDITIONAL INFORMATION---- This report is intended for use in clinical monitoring and management of patients. It is not intended for use in medical-legal applications. Varies (Cervix/Endocerv ix) 02/10/2018 10:46 AM CDT 02/10/2018 1:25 PM CDT Daniel Freitas III, M.D. LAB MICROBIOLOGY - GENERAL ORDERABLES Performing Organization Address City/[facility]/ZIP Co de Phone Number [facility] [address] [place] [address], [facility] from Last 3 Months or Most Recently Relevant to Health Maintenance Care Teams Client Experience Specialist Relationship Specialty Start Date End Date Danette Abreu M.D. [address] [place] [address] PCP - General Family Medicine 02/23/18
--- OUTSIDE RECORDS SUMMARY | 2024-04-18 15:35 | XMS_ITS ---
Author Organization [facility] Address [address] [place] [address] Care Team Providers Care 3Rd Grade Teacher Name Role Phone Unavailable Unavailable Unavailable Surgery Details Not on file Complications Check Surgery Details section. Procedure Estimated Blood Loss Check Surgery Details section. Procedure Findings Check Surgery Details section. Procedure Specimens Taken Check Surgery Details section.
--- OUTSIDE RECORDS SUMMARY | 2024-04-18 15:35 | XMS_ITS | Clinical Summary ---
Author Organization [facility] Address [place], [place] [address] Care Team Providers Care Line Installation Supervisor Name Role Phone Danette Abreu MD Primary Care Provider Allergies No known active allergies Medications Medication Sig Dispensed Refills Start Date End Date Status SPRINTEC 0.25-35 mg-mcg tablet Take 1 tablet by mouth once daily. 04/04/2020 Active Active Problems No known active problems Immunizations Name Administration Dates Next Due COVID-19 vaccine (Tangentix 30mcg/0.3mL) SAUD Pal 11/08/2020,10/18/2020 Social History Tobacco Use Types Packs/Day Years Used Date Smoking Tobacco: Never Smokeless Tobacco: Never Tobacco Cessation:Counseling Given: Yes Alcohol Use Standard Drinks/Week Comments Yes 0 (1 standard drink = 0.6 oz pur e alcohol) Social Connections Answer Date Recorded Frequency of Communication with Friends and Fami ly Not on file 10/26/2021 Financial Resource Strain Answer Date R ecorded Difficulty of Paying Living Expenses Not on file 10/26/2021 Difficulty of Paying Living Expenses Not on file 10/26/2021 Sex and Gender Information Value Date Recorded Sex Assigned at Not on file Gender Identity Not on file Sexual Orientation Not on file Obstetrics History Last Filed Vital Signs Vital Sign Reading Time Taken Comments Blood Pressure 117/73 04/09/2021 12:49 PM CDT Pulse 77 04/09/2021 12:49 PM CDT Temperature 37.1 ??C (98.7 ??F) 04/09/2021 12:49 PM C DT Respiratory Rate 18 02/01/2021 9:24 AM CDT Oxygen Saturation 98% 04/09/2021 12:49 PM CDT Inhaled Oxygen Concentration - - Weight 86.2 kg (190 lb) 04/09/2021 12:49 PM CDT Height 164.5 cm (5' 4.76) 04/09/2021 12:49 PM C DT Body Mass Index 31.85 04/09/2021 12:49 PM CDT Plan of Treatment Health Maintenance Due Date Last Done Comments Tdap 2008 Depression screening for age 12+ 2009 HIV for age 15-65 2012 Hepatitis C screening for ag e 18-79 2015 Tetanus booster 2017 Pap test for age 21-65 2018 BMI (ht and wt on same day) for age 18+ 04/09/2022 04/09/2021 COVID-19 vaccine series (2022- season) 2023 11/08/2020, 10/18/2020 Influenza for age 9-49 06/26/2024 Pneumococcal series for age 6-64 Aged Out No longer eligible b ased on patient's age to complete this topic Care Teams Line Installation Supervisor Relationship Specialty Start Date End Date Danette Abreu MD [address] [facility] [place] [address] PCP - General Family Practice 02/01/21
--- OUTSIDE RECORDS SUMMARY | 2024-04-18 15:35 | XMS_ITS | Clinical Summary ---
Author Organization [facility] Address [address] [place] [address] Care Team Providers Care Electromedical Equipment Technician Name Role Phone Danette Abreu M.D. Primary Care Provider [phone]- [phone] Source Comments Patient records contain information from all sites at [facility]. For routine questions regarding patient records, call [phone] during business hours, M-F 8:00 AM - 5:00 PM Central Time. Record requests for emergency care only can be directed to [phone] at any time.[facility] Allergies No known active allergies Medications [...] quad (FLUZONE/FLUARIX) (6 months and older)(PF) 08/02/2020,07/25/2019,07/23/2018,2017,08/08/2015 Family History Medical History Relation Name Comments Kidney cancer Maternal Grandfather dee gonzalez Anxiety disorder Maternal Grandmother Jesusita Nunez Arthritis Maternal Grandmother Jesusita Nunez Breast cancer Maternal Grandmother Jesusita Nunez Depression Maternal Grandmother Jesusita Nunez Anxiety disorder Mother tony strand Depression Mother tony strand Hypertension Mother tony strand Migraines Mother tony strand Coronary artery disease Paternal Grandfather Miguel Ever khan Breast cancer Paternal Grandmother Cherelle Garces one side mastectomy Diabetes Paternal Grandmother Cherelle Garces Stroke Paternal Grandmother Cherelle Garces Relation Name Status Comments Maternal Grandfather dee gonzalez Maternal Grandmother Jesusita Nunez Mother tony ballard Paternal Grandfather Miguel Garces Paternal Grandmother Cherelle Lutztzer Social History Tobacco Use Types Packs/Day Years [...] often do you attend chur ch or latter-day services? Never 11/22/2021 Do you belong to any clubs o r organizations such as denominational groups, unions, fraternal or athletic groups, or [...] Answer Date Recorded PHQ-2 Score 0 11/22/2021 [facility] - Occupational Stress Questionnaire Answer Date [...] place to sleep or slept in a fpc (including now)? No 11/22/2021 Depression Answer Date [...] Date Recorded Dental: Regular Dentist Yes 06/19/20 Employment Answer Date Recorded Employment status Employed [...] 06/19/2021 11:17 AM CDT Plan of Treatment Health Maintenance Due Date Last Done Comments HIV Screening 1997 Hepatitis C Screening 1997 COVID-19 Vaccine ( season) 2023 11/08/2020, 10/18/2020 Influenza Vaccine (#1) 2023 , 08/28/2021, 08/02/2020, Additional history exists Depression Screening (Annual PHQ-2) 10/26/2023 Cervical Cancer Screening 06/19/2024 06/19/2021, DTaP,Tdap,and Td Vaccines (9 - Td or Tdap) 03/13/2033 03/13/2023, 06/24/2019, 06/06/2009, Additional history exists Hepatitis B Vaccines Completed 01/08/1998, 1997, 1997 HPV Vaccines Completed 07/31/2014, 1004/2013, 05/06/2012 Chlamydia and Gonorrhea Screening Discontinued 02/10/2018 Pneumococcal vaccine (0-64 years) Aged Out No longer eligible based on patient's age to complete this topic Procedures Procedure Name Priority Date/Time Associated Diagnosis [...] Abreu M.D. LAB PAP PATHDX ORD ERABLES [facility] [address] [place] [address], [facility] [address] [place] [address] * Chlamydia / gonorrhoeae Amplified RNA Cervix/Endocervix (02/10/2018 10:46 AM CDT) Source VAGINA 02/10/2018 6:26 PM CDT [facility] Chlamydia trachomatis amplified RNA Negative Negative 02/10/2018 6:26 PM CDT [facility] Comment: ----ADDITIONAL INFORMATION---- This report is intended for use in clinical monitoring and management of patients. It is not intended for use in medical-legal applications. Source VAGINA 02/10/2018 6:26 PM CDT [facility] Neisseria gonorrhoeae amplified RNA Negative Negative 02/10/2018 6:26 PM CDT [facility] Comment: ----ADDITIONAL INFORMATION---- This report is intended for use in clinical monitoring and management of patients. It is not intended for use in medical-legal applications. Varies (Cervix/Endocerv ix) 02/10/2018 10:46 AM CDT 02/10/2018 1:25 PM CDT Daniel Freitas III, M.D. LAB MICROBIOLOGY - GENERAL ORDERABLES [facility] [address] [place] [address], [facility] from Last 3 Months or Most Recently Relevant to Health Maintenance Care Teams Electromedical Equipment Technician Relationship Specialty Start Date End Date Danette Abreu M.D. [address] [place] [address] PCP - General Family Medicine 02/23/18
--- OUTSIDE RECORDS SUMMARY | 2024-04-18 15:36 | XMS_ITS | Encounter Summary ---
Author Organization [facility] Address [address] [place] [address] Care Team Providers Care Video Game Script Writer Name Role Phone Danette Abreu M.D. Primary Care Provider [phone]- [phone] Encounter Details Date Type Department Care Team (Late st Contact Info) Description 05/28/2011 Historical Ophthalmology RST OPH Palmira Corado O.D. [address] [place] [address] Social History Tobacco Use Types Packs/Day Years Used Date Smoking Tobacco: Never Assessed Sex and Gender Information Value Date Recorded Sex Assigned at Female 01/17/2018 9:41 PM CDT Gender Identity Female 01/17/2018 9:41 PM CDT Sexual Orientation Straight 01/17/2018 9: 41 PM CDT documented as of this encounter Progress Notes * Palmira Corado O.D. - 05/28/2011 10:45 AM CDT Eye General CHIEF COMPLAINT Distance blur HISTORY OF PRESENT ILLNESS Patient notes a decrease in distance vision in both eyes over the past 6-9 months. She notices thismainly when looking at the board at school and road signs. Near vision is stable. Denies flashes, new floaters, and diplopia. Denies ocular pain. IMPRESSION / REPORT / PLAN #1 Refractive error (hyperopia). Plan: no spectacle prescription necessary. RTC 1-2 years/prn DIAGNOSIS #1 Refractive error (hyperopia). CD Reports - EYEGEN Id: [id number] Status: Fnl documented in this encounter Plan of Treatment Not on file documented as of this encounter Visit Diagnoses Not on filedocumented in this encounter Care Teams Video Game Script Writer Relationship Specialty Start Date End Date Danette Abreu M.D. [address] [place] [phone] PCP - General Family Medicine 02/23/18 documented as of this encounter
== END 2024-04-14 15:37 | disposition home or self-care (01) ==
LOC: NFLDREF 04-18 15:33
PROVIDERS: Visit Provider Advanced Practice Midwife
DX: R63.5 Abnormal weight gain (principal)
CPT/HCPCS: 84443

== ENCOUNTER 2024-08-24 07:11 | Outpatient (CLI) | payer OTHER, SELFPAY ==
--- OUTSIDE RECORDS SUMMARY | 2024-08-24 07:13 | XMS_ITS | Clinical Summary ---
Author Organization [facility] Address [place], [place] [address] Care Team Providers Care Aluminum Molding Machine Operator Name Role Phone Danette Abreu MD Primary Care Provider Allergies No known active allergies Medications Medication Sig Dispensed Refills Start Date End Date Status SPRINTEC 0.25-35 mg-mcg tablet Take 1 tablet by mouth once daily. 04/04/2020 Active Active Problems No known active problems Immunizations Name Administration Dates Next Due COVID-19 vaccine (CDNlion 30mcg/0.3mL) SAUD Pal 11/08/2020,10/18/2020 Social History Tobacco [...] age 18+ 04/09/2022 04/09/2021 COVID-19 vaccine series ( season) 2024 11/08/2020, 10/18/2020 Influenza for age 9-49 06/26/2024 Pneumococcal series for age 6-64 Aged Out No longer eligible b ased on patient's age to complete this topic Care Teams Aluminum Molding Machine Operator Relationship Specialty Start Date End Date Danette Abreu MD [address] [facility] [place] [address] PCP - General Family Practice 02/01/21
--- NOTE | 2024-08-24 07:15 | CRLHL7_ITS ---
For Patients: As a result of the Cures Act, medical imaging exams and procedure reports are released immediately into your electronic medical record. You may view this report before your referring provider. If you have questions, please contact your health care provider. INDICATION: First trimester scan, establish dates. COMPARISON: None. TECHNIQUE: Real-time yin-scale imaging of the pelvis was performed. FINDINGS: Sonographic imaging demonstrates a single living intrauterine gestation. The embryo demonstrates a regular cardiac rate measuring 167 beats per minute. The embryo`s crown-rump length measurement of 1.6 cm corresponds to a gestational age of 8 weeks 0 days with a sonographic due date of 04/05/2025. There is a normal-appearing yolk sac. There are no gross abnormalities noted within the embryo at this early state of development. The gestational sac has a normal appearance. There is a 1.8 x 0.7 x 1.2 cm perigestational hemorrhage. The amount of fluid within the sac appears appropriate for gestational age. The cervix is closed. The myometrium appears normal. The ovaries are not visualized. There are no suspicious fluid collections noted in the cul-de-sac. IMPRESSION: Single living intrauterine with sonographic gestational age is 8 weeks 0 days and a sonographic due date of 04/05/2025. 1.8 x 0.7 x 1.2 cm subchorionic hemorrhage. Dictated by Augusto Brown MD @ 08/24/2024 12:44:34 PM (Electronically Signed)
== END 2024-08-24 07:12 | disposition home or self-care (01) ==
LOC: US 07:11
PROVIDERS: Visit Provider Registered Nurse
DX: Z34.91 Encounter for supervision of normal pregnancy, unspecified, first trimester (principal); O20.9 Hemorrhage in early pregnancy, unspecified; Z3A.08 8 weeks gestation of pregnancy
CPT/HCPCS: 76817; 86592; 86703; 86704; 86706; 86762; 86787; 86803; 86850; 86900; 86901; 87086; 87340; 87491; 87591; 87624; 88142

== ENCOUNTER 2024-09-12 18:41 | Outpatient (CLI) | payer OTHER, SELFPAY ==
--- NOTE | 2024-09-12 18:44 | CRLHL7_ITS ---
For Patients: As a result of the Century Cures Act, medical imaging exams and procedure reports are released immediately into your electronic medical record. You may view this report before your referring provider. If you have questions, please contact your health care provider. INDICATION: confirm heart tones COMPARISON: 08/24/2024 TECHNIQUE: Real-time yin-scale imaging of the pelvis was performed. FINDINGS: Intrauterine gestational sac is present measuring 4.5 cm, 10 weeks 0 days. pole is present with a crown-rump length of 2.6 cm, 9 weeks 3 days. No heart tones. Subchorionic hemorrhage measures 2.9 x 1.8 x 2.4 cm. Corpus luteal cyst right ovary. No pelvic free fluid. IMPRESSION: Intrauterine demise. Dictated by Augusto Brown MD @ 09/13/2024 11:01:50 AM (Electronically Signed)
--- OUTSIDE RECORDS SUMMARY | 2024-09-12 18:46 | XMS_ITS | Clinical Summary ---
Author Organization [facility] Address [place], [place] [address] Care Team Providers Care Muffler Installer Name Role Phone Danette Abreu MD Primary Care Provider Allergies No known active allergies Medications Medication Sig Dispensed Refills Start Date End Date Status SPRINTEC 0.25-35 mg-mcg tablet Take 1 tablet by mouth once daily. 04/04/2020 Active Active Problems No known active problems Immunizations Name Administration Dates Next Due COVID-19 vaccine (WallStrip 30mcg/0.3mL) SAUD Pal 11/08/2020,10/18/2020 Social History Tobacco [...] 79 04/09/2021 12:49 PM CDT Temperature 37.1 C (98.7 F) 04/09/2021 12:49 PM CDT Respiratory Rate 18 02/01/2021 9:24 AM CDT [...] age to complete this topic Care Teams Muffler Installer Relationship Specialty Start Date End Date Danette Abreu MD [address] [place] [phone] PCP - General Family Practice 02/01/21
--- NOTE | 2024-09-12 18:54 | W.PM.OBO ---
OB Outpatient HPI History of Present Illness Time Seen by Provider: 18:45 Date Seen: 09/12/24 History of Present Illness: 29 year old at 11 1/7 weeks gestation by LMP, HEATHER 04/02/2025, presents with concerns about viability. She and her colleagues were looking at her gravid uterus with ultrasound, and found no evidence of heart motion. She is worried, especially because she was feeling goo. She denies abdominal pain or bleeding. Had had a normal OB ultrasound on 08/24/2024 that confirmed a viable intrauterine gestation. Meds Home Medications and Allergies Home Medications ?Medication ?Instructions ?Recorded ?Confirmed ?Type prenat.vits,heidy,eil-piuh-acpvc 1 tab PO QDAY 10/28/22 08/24/24 History docusate sodium 100 mg capsule 100 mg PO QDAY PRN 08/24/24 08/24/24 History (Colace) Allergies Allergy/AdvReac Type Severity Reaction Status Date / Time No Known Drug Allergies Allergy Verified 08/24/24 08:15 [facility] Medical History Episode of syncope ?R55 - Syncope and collapse (ICD-10) Surgical History H/O section ?Z98.891 - History of uterine scar from previous surgery (ICD-10) Gallion teeth removed ?K08.409 - Partial loss of teeth, unspecified cause, unspecified class (ICD-10) Hx of tonsillectomy ?Z90.89 - Acquired absence of other organs (ICD-10) Family History Mother High blood pressure Depression High cholesterol Fibromyalgia Father Alcohol dependence Prostate cancer Brother No problems noted. 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 Lives with: David Pets: 2 dogs Abuse: Denies past/present Special Diet: Denies Ok with a blood transfusion: yes Culture or gnosticism beliefs: denies RISK FACTORS Exercise Times/wk: 3x/week walking/weight lifting Depression/Anxiety: Depression Seat Belt Use: Routinely Smoking: Denies past/present Alcohol/day: Denies while ; Social Caffeine: 1 pop or coffee per day Drug Use: Denies past/present Chicken Pox: Not as a child, vaccinated MRSA: Denies What is your current living situation?: I presently have a place to live Problems where you live: no known problems In the past 12 months, utilities in danger of being shut off: no In the past 12 mos, have been you worried that your food would run out before you had money to buy more?: never true In the past 12 mos, the food you bought just didn't last and you didn't have money to buy more?: never true Smoking Status: Never smoker How often does anyone, including family, friends and others, physically hurt you: never How often does anyone, including family, friends and others, insult or talk down to you: never How often does anyone, including family, friends and others, threaten you with harm: never How often does anyone, including family, friends and others, scream or curse at you: never History History 2 Elective abortions Para 1 Spontaneous abortions Hx # Term Pregnancies 1 Ectopic pregnancies Hx # Pregnancies Multiple births Number of Living Children 1 Past Pregnancies Del. Date GA/Weeks Outcome Route wt Inf Gender Labor Lgth Anesthesia Location Provider Compli 06/01/23 41 live - full term low transverse 9 lb 2 oz Male 20 hours epidural [facility] - H&P: Exam Constitutional Constitutional: no acute distress Routine Abdominal Exam Abdominal: Present soft; Absent tenderness Detailed Labor and Delivery Exam Comments: A limited early OB ultrasound was performed at the bedside using a transabdominal transducer. A single intrauterine gestation was visualized with a crown-rump length consistent with a 9-week gestation. There was no evidence of heart motion. Assessment and Plan Assessment and plan (1) Missed with demise before 20 completed weeks of gestation: Status: Acute Plan Will order a formal ultrasound tonight to confirm suspected early demise/missed . Nishi discussed management options, assuming that the demise is confirmed. Options include expectant management with monitoring for signs/symptoms of infection, medical management with misoprostol or mifepristone/misoprostol, or surgical management with suction curettage. She was informed that she does not need to make a management decision tonight, but that she should follow up in the [facility] clinic this week with one of my partners to discuss this further (I will be out of town the rest of the week).
== END 2024-09-12 18:42 | disposition home or self-care (01) ==
LOC: OB OUT 18:44
PROVIDERS: Visit Provider Obstetrics & Gynecology
DX: O02.1 Missed abortion (principal)
CPT/HCPCS: 76801

== ENCOUNTER 2024-09-14 06:19 | Day surgery (SDC) | payer OTHER, SELFPAY ==
--- OUTSIDE RECORDS SUMMARY | 2024-09-14 06:20 | XMS_ITS | Clinical Summary ---
Author Organization [facility] Address [place], [place] [address] Care Team Providers Care Adoption Manager Name Role Phone Danette Abreu MD Primary Care Provider Allergies No known active allergies Medications Medication Sig Dispensed Refills Start Date End Date Status SPRINTEC 0.25-35 mg-mcg tablet Take 1 tablet by mouth once daily. 04/04/2020 Active Active Problems No known active problems Immunizations Name Administration Dates Next Due COVID-19 vaccine (MacroSolve 30mcg/0.3mL) SAUD Pal 11/08/2020,10/18/2020 Social History Tobacco [...] age to complete this topic Care Teams Adoption Manager Relationship Specialty Start Date End Date Danette Abreu MD [address] [facility] [address] [id number] PCP - General Family Practice 02/01/21
[2024-09-14 06:25] VITALS: BMI 34.9
[2024-09-14] MEDS: SODIUM CHLORIDE 0.9 % (FLUSH) 10 ML SYRINGE IVF (06:35)
[2024-09-14] MEDS: ONDANSETRON 2 MG/ML inj 4 MG IVP (06:35)
[2024-09-14] MEDS: DOXYCYCLINE HYCLATE 100 MG 200 MG PO (06:40)
[2024-09-14 06:50] VITALS: BP 126/73; PULSE 77; RESP 16; O2SAT 97
--- NOTE | 2024-09-14 07:21 | W.ANESCHARGE ---
Anesthesia Charges Start Date/Time Anesthesia Start Date: 09/14/24 Anesthesia Start Time: 07:39 Stop Date/Time Anesthesia Stop Date: 09/14/24 Anesthesia Stop Time: 08:26
--- NOTE | 2024-09-14 07:32 | W.PM.H&PU ---
History & Physical Update History & Physical Update H&P Reviewed and patient assessed: No changes noted H&P Updates: Ms. Mcdonough is seen in pre-op prior to planned suction D&C in the setting of missed measuring 9w3d. US confirmed miscarriage on 09/12/24, she is s/p consult with Dr. Hall on 09/13. No interval change to her health history or questions today. We again reviewed the risks, benefits and alternatives to the planned procedure. Written consent was re-signed. Post-procedure restrictions and expectations reviewed. Pre-op labs reviewed and are within normal limits. Doxycycline as perioperative antibiotic. Rh positive blood type.
--- NOTE | 2024-09-14 07:34 | W.PM.GYNPROC ---
Procedure Note Date of procedure: 09/14/24 Will [facility] bill your pro fee for this procedure?: Yes Pre-op diagnosis: Missed Procedure: Suction dilation and curettage Anesthesia: MAC and local Surgeon: Patric Perdue MD Estimated blood loss (mL): 50 Urine Output (mL): 50 Pathology: specimen obtained, sent to pathology Condition: stable Disposition: same day Findings: Anteverted uterus, approximately 10 weeks in size TAUS pre-procedure confirmed nonviable IUP TAUS post-procedure confirmed thin, homogenous endometrial stripe Procedure Description: After verifying written informed consent, the patient was taken to the operating room. A time-out was completed to verify correct patient and procedure. Anesthesia was induced and found to be adequate. She was placed in the dorsal lithotomy position in candy-cane stirrups with care taken to avoid neurologic injury. She did receive a preoperative dose of doxycycline per protocol. She was prepared and draped in the usual sterile fashion. A surgical pause was conducted to confirm correct patient and procedure. Bimanual exam was performed as above. Speculum was inserted. The cervix was identified and grasped with a single-tooth tenaculum. A paracervical block was applied with 0.5% bupivicaine was performed, 20cc total. The cervix was serially dilated to accommodate a No. 8 curved curette. The curette was then introduced and advanced to the uterine fundus. The intrauterine contents were aspirated until there was no further return of tissue, across 3 passes. Following this, the suction curettage was utilized to gently confirm satisfactory uterine cri in all quadrants. An additional pass was made with the suction curette with no return of tissue nor blood products. Transabdominal ultrasound was performed documenting a thin, uniform endometrial stripe. Tenaculum was removed from the cervix. Cervix was made hemostatic with pressure and silver nitrate. Sponge and instrument count was correct. The patient was transferred to the recovery room in excellent condition. Products of conception were submitted to pathology. Surgical debrief completed.
[2024-09-14] MEDS: BUPIVACAINE 0.5% 30 ML INJECTION (08:03)
[2024-09-14] MEDS: SILVER NITRATE APPLICATOR 1 EACH STICK..EA. 2 EACH TOPICAL (08:13)
[2024-09-14 08:23] VITALS: BP 103/59; PULSE 66; RESP 16; TEMP 36.6; O2SAT 93
[2024-09-14 08:30] VITALS: BP 107/75; PULSE 64; RESP 16; O2SAT 97
[2024-09-14 08:45] VITALS: BP 109/70; PULSE 64; RESP 16; O2SAT 99
[2024-09-14 09:00] VITALS: BP 105/68; PULSE 65; RESP 16; O2SAT 98
--- NOTE | 2024-09-14 13:06 | W.ANESCHARGE ---
Anesthesia Charges Start Date/Time Anesthesia Start Date: 09/14/24 Anesthesia Start Time: 07:39 Stop Date/Time Anesthesia Stop Date: 09/14/24 Anesthesia Stop Time: 08:26
== END 2024-09-14 09:22 | disposition home or self-care (01) ==
PROVIDERS: Visit Provider Obstetrics & Gynecology
PROC: (CPT 59820; principal; 2024-09-14 07:30)
DX: O02.1 Missed abortion (principal)
CPT/HCPCS: 59820; 00940; 01965; 36415; 86850; 86900; 86901; 88305; A9270; J0665; J1100; J1885; J2250; J2405; J2704; J3010

== ENCOUNTER 2024-12-23 08:00 | Outpatient (CLI) | payer OTHER, SELFPAY ==
--- NOTE | 2024-12-23 08:15 | CRLHL7_ITS ---
For Patients: As a result of the Cures Act, medical imaging exams and procedure reports are released immediately into your electronic medical record. You may view this report before your referring provider. If you have questions, please contact your health care provider. OBSTETRICAL ULTRASOUND < 14 WEEKS, 12/23/2024 INDICATION: Dating and viability. TECHNIQUE: Real time yin scale imaging of the fetus was performed. Transvaginal. LMP: 10/25/2024. HEATHER by LMP: 08/01/2025. GA: 8 weeks 3 days. Previous US: No. CRL: 2.1 cm. 8 w 5 d. HEATHER: 07/30/2025. FHR: 167 BPM. Gestational sac: 3.4 cm. Appears within normal limits. Yolk sac: 3.8 mm. Appears within normal limits. Right ovary: Within normal limits. 3.3 x 2.0 x2.7 cm. Left ovary: Within normal limits. 2.6 x 1.5 x 2.0 cm. IMPRESSION: Single living intrauterine with sonographic gestational age 8 weeks 5 days and sonographic due date 07/30/2025. Augusto Brown M.D. Diagnostic Radiologist [email or web address] SELAM/isha DW/Dictated by: Augusto Brown MD @ 12/24/2024 6:53:00 AM (Electronically Signed)
== END 2024-12-23 08:01 | disposition home or self-care (01) ==
LOC: US 08:01
PROVIDERS: Visit Provider Advanced Practice Midwife
DX: Z34.91 Encounter for supervision of normal pregnancy, unspecified, first trimester (principal); Z3A.08 8 weeks gestation of pregnancy
CPT/HCPCS: 76817; 83021; 86592; 86703; 86704; 86706; 86762; 86787; 86803; 86850; 86900; 86901; 87086; 87340

== ENCOUNTER 2025-03-17 09:10 | Outpatient (CLI) | payer OTHER, SELFPAY ==
--- NOTE | 2025-03-17 09:15 | CRLHL7_ITS ---
For Patients: As a result of the Century Cures Act, medical imaging exams and procedure reports are released immediately into your electronic medical record. You may view this report before your referring provider. If you have questions, please contact your health care provider. OBSTETRICAL ULTRASOUND ??? ANATOMY SURVEY, 03/17/2025 INDICATION: Basic anatomy survey. CLINICAL HISTORY: HEATHER by LMP: 08/01/2025 Gestational age: 20 weeks 3 days TECHNIQUE: Real-time yin-scale transabdominal imaging of the fetus was performed. PREVIOUS ULTRASOUND: 12/23/2024 FINDINGS: position: Multiple positions Cervix: Visualized Technique: Transabdominal Length of closed cervix: 4.3 cm Placenta position: Fundal Technique: Transabdominal Placenta tip to internal os: Too far to measure Umbilical cord: 3-vessel cord Placental insertion: Velamentous, inferior Amniotic fluid: 4.6 cm SDP (greater than/equal to 2 to less than 8 cm) ANATOMY SURVEY: Observed Structures Cerebellum: Yes; 2.1 cm, 21 weeks 0 days Cisterna magna: Yes; 4.9 mm Nuchal fold: Yes; 4.7 mm Lateral ventricle: Yes; 6.5 mm CSP: Yes Midline falx: Yes Choroid plexus: Yes Spine: Yes Stomach: Yes Abdominal cord insert: Yes Urinary bladder: Yes Kidneys: Yes Diaphragm: Yes Nose/lips: Yes Orbital view: Yes Profile: Incomplete visualization Upper extremities: Yes Lower extremities: Yes Hands: Yes Feet: Yes 4-chamber heart: Yes LVOT: Yes RVOT: Yes 3VV: Yes 3VTV: Yes BIOMETRY BPD: 4.9 cm, 21 weeks 0 days, 71% HC: 18.4 cm, 20 weeks 5 days, 58% AC: 16.3 cm, 21 weeks 3 days, 75% FL: 3.4 cm, 20 weeks 5 days, 53% FL/AC: 20.97% HC/AC ratio: 1.13 heart rate: 145 bpm age by this ultrasound: 21 weeks 0 days HEATHER by this ultrasound: 07/28/2025 Estimated weight: 396 grams (0 pounds 14 ounces) Percentile by HEATHER: 79% IMPRESSION: 1) Sonographic gestational age 21 weeks 0 days and sonographic due date of 07/28/2025. Sonographic gestational age is 4 days ahead of the clinical age. 2) Estimated weight is 79th percentile. Abdominal circumference is 75th percentile. 3) Placenta appears velamentous inferiorly. 4) Incomplete visualization of the profile. Short-term follow-up recommended. Remainder of the anatomic survey is normal. AUGUSTO TREJO M.D. Diagnostic Radiologist [email or web address] Transcribed: 2:[address]/Dictated by: Augusto Trejo MD @ 03/17/2025 1:00:00 PM (Electronically Signed)
== END 2025-03-17 09:11 | disposition home or self-care (01) ==
LOC: US 09:11
PROVIDERS: Visit Provider Advanced Practice Midwife
DX: Z34.92 Encounter for supervision of normal pregnancy, unspecified, second trimester (principal); Z3A.20 20 weeks gestation of pregnancy
CPT/HCPCS: 76805

== ENCOUNTER 2025-04-17 10:30 | Outpatient (RCR) | payer OTHER, SELFPAY | END 2025-08-15 23:59 | disposition home or self-care (01) | PROVIDERS: Visit Provider Advanced Practice Midwife | DX: N39.3 Stress incontinence (female) (male) (principal); R10.2 Pelvic and perineal pain; Z34.90 Encounter for supervision of normal pregnancy, unspecified, unspecified trimester; L90.5 Scar conditions and fibrosis of skin; Z51.89 Encounter for other specified aftercare | CPT/HCPCS: 97110; 97140; 97161 ==

== ENCOUNTER 2025-05-09 08:52 | Outpatient (CLI) | payer OTHER, SELFPAY ==
--- NOTE | 2025-05-09 09:15 | CRLHL7_ITS ---
For Patients: As a result of the Century Cures Act, medical imaging exams and procedure reports are released immediately into your electronic medical record. You may view this report before your referring provider. If you have questions, please contact your health care provider. OB ULTRASOUND HEATHER by LMP: 08/01/2025. GA: 28 w, 0 d. Single. Comparison: Ultrasound 03/17/2025. INDICATION: Velamentous cord insertion. Profile. TECHNIQUE: Real time grayscale imaging of the fetus was performed. Transabdominal. CERVIX: Not visualized. POSITIONING: Vertex. AMNIOTIC FLUID: 7.6 cm. SDP (N: greater than 2 x 1 cm) PLACENTA: Technique: Transabdominal, ? velamentous. PLACENTA POSITION: Fundal. DOPPLER: heart rate: 161 bpm. BIOMETRY: BPD: 7.4 cm. 29 w, 6 d, 89 percent. HC: 27.0 cm. 29 w, 3 d, 66 percent. AC: 25.5 cm. 29 w, 5 d, 88 percent. FL: 5.1 cm. 27 w, 2 d, 16 percent. FL/AC ratio: 19.90 percent. HC/AC ratio: 1.06. EFW: 1300 g. Weight: 2 lbs, 14 oz. age by this US: 29 w, 1 d. HEATHER by this US: 07/24/2025. Percentile by HEATHER: 72 percent. IMPRESSION: 1. Sonographic gestational age 29 weeks 1 day and sonographic due date 07/24/2025. Sonographic age 8 days ahead of the clinical age. 2. Estimated weight 72nd percentile. Abdominal circumference 88th percentile. 3. Velamentous cord insertion is suspected. Augusto Brown M.D. Diagnostic Radiologist [email or web address] SELAM/naida pascal/Dictated by: Augusto Brown MD @ 05/09/2025 9:55:00 AM (Electronically Signed)
== END 2025-05-09 08:53 | disposition home or self-care (01) ==
LOC: US 08:53
PROVIDERS: Visit Provider Advanced Practice Midwife
DX: O43.123 Velamentous insertion of umbilical cord, third trimester (principal); O36.63X0 Maternal care for excessive fetal growth, third trimester, not applicable or unspecified; Z3A.28 28 weeks gestation of pregnancy
CPT/HCPCS: 76816

== ENCOUNTER 2025-06-05 13:31 | Outpatient (CLI) | payer OTHER, SELFPAY ==
--- NOTE | 2025-06-05 13:45 | CRLHL7_ITS ---
For Patients: As a result of the Century Cures Act, medical imaging exams and procedure reports are released immediately into your electronic medical record. You may view this report before your referring provider. If you have questions, please contact your health care provider. OB ULTRASOUND FOLLOW-UP 06/05/2025 CLINICAL HISTORY: Velamentous cord insertion. COMPARISON: 05/09/2025, 03/17/2025, 12/23/2024. TECHNIQUE: Real time yin scale imaging of the fetus was performed. Transabdominal imaging performed. FINDINGS: HEATHER by LMP: 08/01/2025. GA: 31 weeks 6 days. Gestation: Single. Cervix: Not visualized. Positioning: Breech. Amniotic Fluid: 7.7 cm SDP. Placenta: Technique: TA. Placenta Position: Anterior. Dopplers: Heart Rate: 141 bpm. BIOMETRY: BDP: 8.4 cm, 33 weeks 4 days. 87.0% HC: 31.1 cm, 34 weeks 5 days. 86.7% AC: 29.0 cm, 33 weeks 0 days. 80.5% FL: 6.0 cm, 31 weeks 0 days. 17.2% FL/AC Ratio: 20.53% HC/AC Ratio: 1.07. EFW: 3 grams, 4 lb 7 oz. age by this US: 33 weeks 1 day. HEATHER by this US: 07/23/2025. Percentile by HEATHER: 65.9% IMPRESSION: 1. Sonographic gestational age 33 weeks 1 day and sonographic due date 07/23/2025. Sonographic age is 9 days ahead of the clinical age. 2. Estimated weight 66th percentile. Abdominal circumference 81st percentile. 3. Blood products are present at the left inferior placenta measuring 8.2 x 1.6 x 3.4 cm representing sequela of blood product deposition. Augusto Brown M.D. Diagnostic Radiologist [email or web address] Transcribed: 5:07 pm DW/Dictated by: Augusto Brown MD @ 06/05/2025 4:06:00 PM (Electronically Signed)
== END 2025-06-05 13:32 | disposition home or self-care (01) ==
LOC: US 13:31
PROVIDERS: Visit Provider Advanced Practice Midwife
DX: O43.123 Velamentous insertion of umbilical cord, third trimester (principal); O36.63X0 Maternal care for excessive fetal growth, third trimester, not applicable or unspecified; Z3A.31 31 weeks gestation of pregnancy
CPT/HCPCS: 76816

== ENCOUNTER 2025-06-16 06:33 | Outpatient (CLI) | payer OTHER, SELFPAY ==
[2025-06-16] VITALS (14 sets, daily range): BP systolic 118; BP diastolic 68; PULSE 61–107; RESP 16; TEMP 36.8; O2SAT 96–98
[2025-06-16 07:08] LABS: Appearance Urine Clear (Clear)
[2025-06-16] MEDS: LACTATED RINGERS 1000 ML 1,000 ML IV (07:58)
[2025-06-16] MEDS: METOCLOPRAMIDE HCL 5 MG/ML INJ 10 MG IVP (08:57)
--- NOTE | 2025-06-16 10:13 | US_ITS ---
Patient: NATALIYA FENG Facility:?[facility] Patient ID:?[id number] Site Patient ID:?[id number]. Site :?[id number] Study:?US-OB Pelvis BPP-06/16/2025 10:53:54 AM Ordering Physician:Xochitl Bhandari Final Report: INDICATION: Concern for heart rate TECHNIQUE: Ultrasound OB pelvis transabdominal. Real-time yin-scale imaging of the fetus was performed without stress testing. COMPARISON: Ob follow-up ultrasound 06/05/2025. FINDINGS: heart rate: Regular, 144 bpm. position: Vertex. Placenta: Fundal. Amniotic fluid volume single deepest pocket 9.4 cm, 2/2. motion 2/2. tone 2/2. breathing movements 2/2. IMPRESSION: 1. Single viable intrauterine with a biophysical profile 06/02. 2. New mild polyhydramnios. Dictated by Ely Gurrola MD @ 06/16/2025 11:16:56 AM (Electronic Signature)
--- NOTE | 2025-06-16 12:54 | PM.OBLDTN ---
OB - Triage/Final Diagnosis Visit Information Date Seen: 06/16/25 Narrative: Lizy is a 30 year old 3 para 1 at 33.3 weeks gestation by LMP, who presents with decreased movement and not feeling well. This morning she woke to feeling not good and did vomit in the shower. She endorses a small amount of loose stools but feels she has been constipated. She also feels that baby is not moving this morning. She has felt good movement since arrival and is reassured by this. She was given an IV fluid bolus and is feeling somewhat better but still not great. Having some cramping and contraction tracing per TOCO but they have now resolved. FHR tracing showed some variable decelerations with good return to baseline and good variability. A BPP was ordered for reassurance and was found to be 8/8 and tracing since has been reassuring. US did demonstrate moderate polyhydramnios with CATRINA of 32.5. We reviewed this finding and discussed recommended testing and growth US. She is feeling comfortable going home at this time. Reviewed labor precautions and when to return or be evaluated. Evaluation Laboratory results: Laboratory Tests 06/16/25 Range/Units Unknown Urine Color Yellow (Yellow) Urine Appearance Clear (Clear) Urine pH 7.0 (5.0-8.5) Ur Specific Damar 1.015 (1.000-1.030) Urine Protein Negative (Negative) Urine Glucose (UA) Negative (Negative) Urine Ketones Negative (Negative) Urine Blood Negative (Negative) Urine Nitrite Negative (Negative) Urine Bilirubin Negative (Negative) Urine Urobilinogen 0.2 (0.2-1.0) Ur Leukocyte Esterase 1+ A (Negative) Urine RBC 0-2 (0-2) Urine WBC 5-10 A (0-5) Ur Squamous Epith Cells Moderate A (None-Few) Urine Bacteria Many A (None) Vital signs: Vital Signs - 24 hr 06/16/25 06:52 06/16/25 06:53 06/16/25 10:00 Temperature 98.3 F Pulse Rate 72 Respiratory Rate 16 Blood Pressure 118/68 Pulse Oximetry 96 06/16/25 10:05 06/16/25 10:10 06/16/25 10:15 Temperature Pulse Rate Respiratory Rate Blood Pressure Pulse Oximetry 97 96 97 06/16/25 10:20 06/16/25 10:25 06/16/25 12:01 Temperature Pulse Rate Respiratory Rate Blood Pressure Pulse Oximetry 98 97 97 06/16/25 12:06 06/16/25 12:11 06/16/25 12:16 Temperature Pulse Rate Respiratory Rate Blood Pressure Pulse Oximetry 98 97 98 06/16/25 12:21 06/16/25 12:26 Temperature Pulse Rate Respiratory Rate Blood Pressure Pulse Oximetry 97 97 Fetus (Infant A) Heart Rate Baseline: 120 Retirement Variability: Moderate (11-25) Monitor Accelerations: Present Monitor Decelerations: Variable (now resolved, BPP 8/) Final Diagnosis (1) Polyhydramnios in diaz in third trimester: Status: Acute (2) Velamentous insertion of umbilical cord: Status: Acute (3) History of delivery, currently : Status: Acute (4) Obesity affecting , antepartum: Status: Acute
--- NOTE | 2025-06-16 20:14 | PC.OBNST ---
NST Note NST Note Start: 06/16/25 06:44 Freq: ONCE Status: Active Protocol: Document 06/16/25 20:04 TARA (Rec: 06/16/25 20:07 TARA [id number]) NST Note 3 Para (# of births) 1 EDC 08/01/25 Gestational Age In 33 Weeks & 3 Days Weeks & Days Patient Presented Decreased movement with Complaint(s) of Other Complaints BPP 06/02 Reactive Yes Appropriate for Yes Gestational Age MATTHEW Yao RN Date 06/16/25 Reactive Yes Appropriate for Yes Gestational Age MATTHEW Crowley RNC Date 06/16/25 OB NST charge Yes Complete NST Note Yes via Write Note The provider's electronic signature indicates the NST is reactive/appropriate for gestational age. *Note to provider: If an addendum is required, open the patient's chart and click on the note under the Nurse/Allied Health tab.
== END 2025-06-16 12:40 | disposition home or self-care (01) ==
LOC: OB OUT 06:43 → OB 06:43
PROVIDERS: Referring Provider Advanced Practice Midwife; Visit Provider Advanced Practice Midwife
DX: O36.8130 Decreased fetal movements, third trimester, not applicable or unspecified (principal); Z3A.33 33 weeks gestation of pregnancy
CPT/HCPCS: 59025; 76819; 81001; 81003; 87086; G0463; J2765; J7120

== ENCOUNTER 2025-06-28 12:45 | Outpatient (CLI) | payer OTHER, SELFPAY ==
--- NOTE | 2025-06-28 13:00 | CRLHL7_ITS ---
For Patients: As a result of the Cures Act, medical imaging exams and procedure reports are released immediately into your electronic medical record. You may view this report before your referring provider. If you have questions, please contact your health care provider. OB ULTRASOUND BIOPHYSICAL PROFILE, 06/28/2025 CLINICAL HISTORY: Poly. COMPARISON: 06/16/2025, 06/05/2025, 03/17/2025. TECHNIQUE: Real time yin scale imaging of the fetus was performed. Transabdominal imaging performed. FINDINGS: HEATHER by LMP/US: 08/01/2025. GA: 35 weeks 1 day. Gestation: Single. Cervix: Not visualized. Positioning: Vertex. Amniotic Fluid: 32.0 cm CATRINA 11.6 cm SDP. BIOPHYSICAL PROFILE Gross Body Movements: 2 Tone: 2 Respiratory Activity: 2 Amniotic Fluid SDP: 2 Total Score: 8 Placenta: Technique: TA. Placenta Position: Anterior. Dopplers: Heart Rate: 126 bpm. IMPRESSION: 1. Normal biophysical profile score of 8/8. 2. Amniotic fluid single deepest pocket 11.6 cm. CATRINA 31.9 cm. Augusto Brown M.D. Diagnostic Radiologist [email or web address] Transcribed: 3:11 pm DW/Dictated by: Augusto Brown MD @ 06/28/2025 2:23:00 PM (Electronically Signed)
== END 2025-06-28 12:46 | disposition home or self-care (01) ==
LOC: US 12:46
PROVIDERS: Visit Provider Advanced Practice Midwife
DX: O43.123 Velamentous insertion of umbilical cord, third trimester (principal); O40.3XX0 Polyhydramnios, third trimester, not applicable or unspecified; O36.63X0 Maternal care for excessive fetal growth, third trimester, not applicable or unspecified; Z3A.36 36 weeks gestation of pregnancy
CPT/HCPCS: 76819

== ENCOUNTER 2025-07-04 08:58 | Outpatient (CLI) | payer OTHER, SELFPAY ==
--- NOTE | 2025-07-04 09:15 | CRLHL7_ITS ---
For Patients: As a result of the Century Cures Act, medical imaging exams and procedure reports are released immediately into your electronic medical record. You may view this report before your referring provider. If you have questions, please contact your health care provider. OB ULTRASOUND BIOPHYSICAL PROFILE HEATHER by LMP: 08/01/2025. GA: 36 w, 0 d. Single. Comparison: 06/28/2025, 06/16/2025, 06/05/2025, 05/09/2025. INDICATION: Velamentous cord insertion, polyhydramnios, blood products near inferior placenta. TECHNIQUE: Real time yin scale imaging of the fetus was performed. Transabdominal. CERVIX: Not visualized. POSITIONING: Vertex. AMNIOTIC FLUID: 30.8 cm. 11.0 cm SDP (N: greater than 2 x 1 cm) BIOPHYSICAL PROFILE: Total score: 2. Gross body movements: 2. tone: 2. Respiratory activity: 2. Amniotic fluid: 2. (SDP N: greater than 2 x 1 cm) TOTAL: 06/02. PLACENTA: Technique: Transabdominal. PLACENTA POSITION: Anterior. DOPPLER: heart rate: 130 bpm. BIOMETRY: BPD: 9.3 cm. 37 w, 5 d, 93 percent. HC: 34.2 cm. 39 w, 3 d, 92 percent. AC: 33.7 cm. 37 w, 4 d, 93 percent. FL: 6.7 cm. 34 w, 4 d, 14 percent. FL/AC ratio: 19.95 percent. HC/AC ratio: 1.01. EFW: 3122 g. Weight: 6 lbs, 14 oz. age by this US: 37 w, 2 d. HEATHER by this US: 07/23/2025. Percentile by HEATHER: 81 percent. IMPRESSION: 1. Normal biophysical profile 06/02. 2. Sonographic gestational age 37 weeks 2 days and sonographic due date 07/23/2025. Sonographic age is 9 days ahead of the clinical age. 3. Estimated weight 81st percentile. Abdominal circumference 93rd percentile. 4. Amniotic fluid single deepest pocket 11.0 cm. CATRINA 30.8 cm. 5. Similar residual blood products at the edge of the placenta which measure 8.6 x 1.3 x 2.3 cm. Previously this measured 8.2 x 1.6 x 3.4 cm on 06/05/2025. Augusto Brown M.D. Diagnostic Radiologist [email or web address] SELAM/lucas JR/Dictated by: Augusto Brown MD @ 07/04/2025 10:01:00 AM (Electronically Signed)
== END 2025-07-04 08:59 | disposition home or self-care (01) ==
LOC: US 08:59
PROVIDERS: Visit Provider Advanced Practice Midwife
DX: O43.123 Velamentous insertion of umbilical cord, third trimester (principal); O43.103 Malformation of placenta, unspecified, third trimester; O36.63X0 Maternal care for excessive fetal growth, third trimester, not applicable or unspecified; Z3A.36 36 weeks gestation of pregnancy
CPT/HCPCS: 76816; 76819

== ENCOUNTER 2025-07-04 10:15 | Outpatient (CLI) | payer OTHER, SELFPAY | END 2025-07-04 10:16 | disposition home or self-care (01) | LOC: NFLDREF 07-10 07:00 | PROVIDERS: Visit Provider Advanced Practice Midwife | DX: O43.123 Velamentous insertion of umbilical cord, third trimester (principal); O36.63X0 Maternal care for excessive fetal growth, third trimester, not applicable or unspecified; O40.3XX0 Polyhydramnios, third trimester, not applicable or unspecified; Z3A.36 36 weeks gestation of pregnancy | CPT/HCPCS: 76816; 76819; 87081; 87653 ==

== ENCOUNTER 2025-07-11 12:41 | Outpatient (CLI) | payer OTHER, SELFPAY ==
[2025-07-11 13:00] VITALS: BP 112/61; PULSE 77; RESP 16; TEMP 36.9
--- NOTE | 2025-07-11 14:19 | PM.OBLDTN ---
OB - Triage/Final Diagnosis Visit Information Date of evaluation: 07/11/25 Narrative: The patient is a 30 year old 3 para 1011 at 37 0/7 weeks gestation by LMP, who presents with equivocal surveillance for high risk due to hx of . She presented for NST in the outpatient setting. Baby was so wiggly, NST was difficult to assess accurately. She was then sent for BPP and received a score of 6/8 for no breathing movements. US tech admits that this was just not something she could assess due to excessive movement. Lizy then agreed to go to L&D triage for extended monitoring. Baby did calm quite a bit eventually. She has had no PURI, vision changes or RUQ pain. Baby's baseline FHR at 33 weeks as also 110bpm. NST was able the more assuredly be assessed. Specific Issues/Plans [id number]: David, Son: Nelson # Polyhydramnios, Moderate: CATRINA 30-34 or SDP 12-15cm. CATRINA 32.5 at 33wks. testing worksheet completed 06/19. CATRINA every 2 weeks and weekly testing. Growth US every 4 weeks: see below Recommend delivery: 39 0/7-39 6/7weeks? # Hx of a c/s Previous c/s 06/01/2023 for arrest of dilation and chorioamnionitis (cord wrapped around body and foot multiple times) TOLAC consult: Complete 06/01/25 36 weeks growth: ordered # Hx of Depression No medication or therapy # Obesity, Pre- BMI 36.1? Recommend baby ASA Weekly testing starting at 37 weeks? Consider growth US at 32 weeks: see below Delivery recommended: elective delivery considered at >39 0/7 weeks.? # Velamentous Cord Insertion ? Weekly testing starting at 36 weeks? Growth US every 4 weeks starting at 28 weeks: ordered 28 weeks: 72%ile 32 weeks: 69%ile 36 weeks: 81%ile ? Recommend delivery: elective considered at >39 0/7 weeks # Blood Product 8.2 x 1.6 x 3.4 cm at left inferior edge Reviewed with NDP who just recommends continue monitoring Ultrasound: Anatomy US (03/17/2025): IMPRESSION: 1)Sonographic gestational age 21 weeks 0 days and sonographic due date of 07/28/2025. Sonographic gestational age is 4 days ahead of the clinical age. 2)Estimated weight is 79th percentile. Abdominal circumference is 75th percentile. 3)Placenta appears velamentous inferiorly. 4)Incomplete visualization of the profile. Short-term follow-up recommended. Remainder of the anatomic survey is normal. Follow-up US with growth (05/09/2025): IMPRESSION: 1. Sonographic gestational age 29 weeks 1 day and sonographic due date 07/24/2025. Sonographic age 8 days ahead of the clinical age. 2. Estimated weight 72nd percentile. Abdominal circumference 88th percentile. 3. Velamentous cord insertion is suspected. Follow-up US with growth (07/04/2025): vertex, CATRINA 30.8, SDP 11.0, BPP 8/8, EFW 81%ile. BPP 07/11/25: 1. Biophysical profile score of 6/8. Absent respiratory activity. 2. Amniotic fluid single deepest pocket 10.8 cm. CATRINA 33.0 cm. Assessment: NST reactive complicated by- Previous history of ,Moderate polyhydramnios, velamentous cord insertion, Obesity, Hx of depression 37w 0d BPP now 06/04 P: Signs and symptoms to report reviewed with Lizy. Membranes swept with consent. Lizy to return tomorrow for repeat BPP. She agrees with plan and has no further questions at this time. Evaluation Vital signs: Vital Signs - 24 hr 07/11/25 13:00 07/11/25 13:00 Temperature 98.5 F Pulse Rate 77 Respiratory Rate 16 Blood Pressure 112/61 Comments: Objective: Constitutional: Alert and oriented x3, no distress Vital signs stable, see nurse documentation Abdomen: gravid, contractions not palpable Cervix: 1 cm/50%/-5 station/vertex by US +1 BLE edema NST: 110s bpm/moderate variability/accelerations present/decelerations absent/minimal and irregular contractions Membranes swept with consent Final Diagnosis (1) H/O section: Status: Acute Problem details: arrest of dilation in the setting of chorio 8/7/23 (2) Polyhydramnios in diaz in third trimester: Status: Acute (3) Velamentous insertion of umbilical cord: Status: Acute
--- NOTE | 2025-07-11 15:19 | PC.OBNST ---
NST Note NST Note Start: 07/11/25 12:49 Freq: ONCE Status: Active Protocol: Document 07/11/25 14:00 LLB (Rec: 07/11/25 15:18 LLB [id number]) NST Note 3 Para (# of births) 1 EDC 08/01/25 Gestational Age In 37 Weeks & 0 Days Weeks & Days Patient Presented Other with Complaint(s) of Other Complaints Sent over from the clinic for non-reassuring NST and BPP of 6/8. Clinic requesting extended monitoring. Reactive Yes Appropriate for Yes Gestational Age MATTHEW Menendez RN. Date 07/11/25 Reactive Yes Appropriate for Yes Gestational Age MATTHEW Herrera RN Date 07/11/25 OB NST charge Yes Complete NST Note Yes via Write Note The provider's electronic signature indicates the NST is reactive/appropriate for gestational age. *Note to provider: If an addendum is required, open the patient's chart and click on the note under the Nurse/Allied Health tab.
== END 2025-07-11 14:09 | disposition home or self-care (01) ==
LOC: OB OUT 12:44 → OB 12:45
PROVIDERS: Visit Provider Midwife
DX: O28.8 Other abnormal findings on antenatal screening of mother (principal); Z3A.37 37 weeks gestation of pregnancy
CPT/HCPCS: 59025; 76819; G0463

== ENCOUNTER 2025-07-12 10:33 | Outpatient (CLI) | payer OTHER, SELFPAY ==
--- NOTE | 2025-07-12 10:45 | CRLHL7_ITS ---
For Patients: As a result of the Cures Act, medical imaging exams and procedure reports are released immediately into your electronic medical record. You may view this report before your referring provider. If you have questions, please contact your health care provider. OBSTETRICAL ULTRASOUND ??? BIOPHYSICAL PROFILE, 07/12/2025 INDICATION: Biophysical profile was 6/8 on 07/11/2025; repeat 24 hours. CLINICAL HISTORY: HEATHER by LMP: 08/01/2025 Gestational Age: 37 weeks 1 day COMPARISON: 07/11/2025, 07/04/2025, 06/28/2025. TECHNIQUE: Real-time yin-scale transabdominal imaging of the fetus was performed. FINDINGS: Fetus: Single Cervix: Not visualized positioning: Vertex Amniotic Fluid: CATRINA: 27.04 cm SDP: 9.7 cm BIOPHYSICAL PROFILE: Gross body movements: 2 tone: 2 Respiratory activity: 2 Amniotic fluid SDP: 2 Total score: 8 Placenta technique: Transabdominal Placenta position: Anterior heart rate: 134 bpm IMPRESSION: 1. Normal biophysical profile score of 8/8. 2. Amniotic fluid single deepest pocket 9.7 cm. CATRINA 27.04 cm. AUGUSTO TREJO M.D. Diagnostic Radiologist [email or web address] Transcribed: 11:[address]/Dictated by: Augusto Trejo MD @ 07/12/2025 11:36:00 AM (Electronically Signed)
== END 2025-07-12 10:34 | disposition home or self-care (01) ==
LOC: US 10:34
PROVIDERS: Visit Provider Advanced Practice Midwife
DX: O40.3XX0 Polyhydramnios, third trimester, not applicable or unspecified (principal); Z3A.37 37 weeks gestation of pregnancy
CPT/HCPCS: 76819

== ENCOUNTER 2025-07-18 11:57 | Outpatient (CLI) | payer OTHER, SELFPAY ==
--- NOTE | 2025-07-18 12:15 | CRLHL7_ITS ---
For Patients: As a result of the Cures Act, medical imaging exams and procedure reports are released immediately into your electronic medical record. You may view this report before your referring provider. If you have questions, please contact your health care provider. OB ULTRASOUND HEATHER by LMP: 08/01/2025. GA: 38 w, 0 d. Single. Comparison: 07/12/2025, 07/11/2025, 07/04/2025. INDICATION: Polyhydramnios. TECHNIQUE: Real time grayscale imaging of the fetus was performed. Transabdominal. CERVIX: Not visualized. POSITIONING: Vertex. AMNIOTIC FLUID: 30.03 CATRINA. 9.5 cm. SDP (N: greater than 2 x 1 cm) BIOPHYSICAL PROFILE: 2: Gross body movements 2: tone 2: Respiratory activity 2: Amniotic fluid SDP (N: greater than 2 x 1 cm) 8/8: Total score PLACENTA: Technique: Transabdominal. PLACENTA POSITION: Anterior. DOPPLER: heart rate: 141 bpm. IMPRESSION: 1. Normal biophysical profile score 8/8. 2. Amniotic fluid single deepest pocket 9.5 cm. CATRINA: 30.0 cm. Augusto Brown M.D. Diagnostic Radiologist [email or web address] SELAM/naida pascal/Dictated by: Augusto Brown MD @ 07/18/2025 3:48:00 PM (Electronically Signed)
== END 2025-07-18 11:58 | disposition home or self-care (01) ==
LOC: US 11:57
PROVIDERS: Visit Provider Advanced Practice Midwife
DX: O40.3XX0 Polyhydramnios, third trimester, not applicable or unspecified (principal); Z3A.38 38 weeks gestation of pregnancy
CPT/HCPCS: 76819

== ENCOUNTER 2025-07-28 15:48 | Inpatient (IN) | payer OTHER, SELFPAY ==
[2025-07-28 16:00] VITALS: BP 128/84; PULSE 82
[2025-07-28 16:04] VITALS: BMI 39.3
--- NOTE | 2025-07-28 16:56 | W.PM.LDBA ---
Subjective History of Present Illness Date Seen: 07/28/25 Narrative: Lizy is being admitted to Labor and Delivery for IOL for polyhydramnios. Additionally she is a TOLAC and has obesity and a velamentous cord insertion. She is a 30 year old at 39.3 weeks gestation. Her full history and physical was dictated by Lalo Dash CNM on 07/12/25. Please see this for details. We briefly again discussed options for IOL and she would like to proceed with a Cook catheter with low dose Pitocin starting around 2100 this evening. Cook placed easily and she tolerated it without difficulty. Cervix was 2cm/-50/-3 on exam with placement. She feels that she is more wet than typical today but feels it is probably sweat and not amniotic fluid. No fluid noted with exam. AmniSure collected out of an abundance of precaution. Will remove the Cook if it is positive. Specific Issues/Plans : David, Son: Nelson H&P completed 07/12/2025 by CHANDANA Whitlock # Polyhydramnios, Moderate: CATRINA 30-34 or SDP 12-15cm. CATRINA 32.5 at 33wks. testing worksheet completed 06/19. CATRINA every 2 weeks and weekly testing. Growth US every 4 weeks: see below Recommend delivery: 39 0/7-39 6/7weeks? # Hx of a c/s Previous c/s 06/01/2023 for arrest of dilation and chorioamnionitis (cord wrapped around body and foot multiple times) TOLAC consult: Complete 06/01/25 36 weeks growth: ordered # Hx of Depression No medication or therapy # Obesity, Pre- BMI 36.1? Recommend baby ASA Weekly testing starting at 37 weeks? Consider growth US at 32 weeks: see below Delivery recommended: elective delivery considered at >39 0/7 weeks.? # Velamentous Cord Insertion ? Weekly testing starting at 36 weeks? Growth US every 4 weeks starting at 28 weeks: ordered 28 weeks: 72%ile 32 weeks: 69%ile 36 weeks: 81%ile ? Recommend delivery: elective considered at >39 0/7 weeks # Blood Product 8.2 x 1.6 x 3.4 cm at left inferior edge at 31.6 weeks Reviewed with NDP who just recommends continue monitoring, unchanged at 36 week US Ultrasound: Anatomy scan (03/17/2025): IMPRESSION: 1)Sonographic gestational age 21 weeks 0 days and sonographic due date of 07/28/2025. Sonographic gestational age is 4 days ahead of the clinical age. 2)Estimated weight is 79th percentile. Abdominal circumference is 75th percentile. 3)Placenta appears velamentous inferiorly. 4)Incomplete visualization of the profile. Short-term follow-up recommended. Remainder of the anatomic survey is normal. Follow-up US (05/09/2025):IMPRESSION: 1. Sonographic gestational age 29 weeks 1 day and sonographic due date 07/24/2025. Sonographic age 8 days ahead of the clinical age. 2. Estimated weight 72nd percentile. Abdominal circumference 88th percentile. 3. Velamentous cord insertion is suspected. Follow-up US with growth (06/05/2025): IMPRESSION: 1. Sonographic gestational age 33 weeks 1 day and sonographic due date 07/23/2025. Sonographic age is 9 days ahead of the clinical age. 2. Estimated weight 66th percentile. Abdominal circumference 81st percentile. 3. Blood products are present at the left inferior placenta measuring 8.2 x 1.6 x 3.4 cm representing sequela of blood product deposition. BPP (06/16/2025): IMPRESSION: 1. Single viable intrauterine with a biophysical profile 06/02. 2. New mild polyhydramnios. Follow-up US with growth (07/04/2025): IMPRESSION: 1.Normal biophysical profile 06/02. 2.Sonographic gestational age 37 weeks 2 days and sonographic due date 07/23/2025. Sonographic age is 9 days ahead of the clinical age. 3.Estimated weight 81st percentile. Abdominal circumference 93rd percentile. 4.Amniotic fluid single deepest pocket 11.0 cm. CATRINA 30.8 cm. 5.Similar residual blood products at the edge of the placenta which measure 8.6 x 1.3 x 2.3 cm. Previously this measured 8.2 x 1.6 x 3.4 cm on 06/05/2025. BPP (07/11/2025): IMPRESSION: 1. Biophysical profile score of 6/8. Absent respiratory activity. 2. Amniotic fluid single deepest pocket 10.8 cm. CATRINA 33.0 cm. BPP (07/12/2025): Vertex, FHR 134, BPP 8/8, CATRINA 27.04. Hep B indeterminate. Has had the series and boosters but remain indeterminate. Doesn't need vaccination. Tdap: 05/09/2025 COVID: initial series no booster, declined booster Flu: 08/08/2024 RSV: 07/04/2025 OB - Problem Based A/P Additional Plan (1) Velamentous insertion of umbilical cord: Status: Acute (2) Polyhydramnios in diaz in third trimester: Status: Acute (3) H/O section: Problem details: arrest of dilation in the setting of chorio 06/01/23 Status: Acute (4) Unspecified failed trial of labor, antepartum: Status: Acute (5) Obesity affecting , antepartum: Status: Acute (6) Depression: Status: Acute Plan ASSESSMENT:? at 39.3 weeks gestation? GBS negative? complicated by: moderate polyhydramnios, TOLAC, velamentous cord insertion, obesity? Labor type: medical IOL for polyhydramnios ? Blood type: A+? ?? PLAN:? 1. Reviewed risks and benefits of IOL with Pitocin vs Cook. Pt prefers Cook with low dose Pitocin initiated at 2100. Pitocin titration to follow in the morning if needed.? 2. Candidate for analgesia of choice. Undecided, open to epidural.? 3. MD aware of TOLAC IOL per policy. 4. Anticipate ? 5. IV placemant and continuious monitoring per policy. Delivery/Labor/Induction Plan Plan: induction Induction method: Intracervical balloon catheter OB Result Labs Blood Type: A (+) positive Rubella: immune RPR/VDLR: nonreactive GBS Status: negative HBsAG: negative OB Exam Physical Exam Vital signs: Pulse BP 82 128/84 07/28/25 16:00 07/28/25 16:00 Narrative: Psychiatric:? Alert and oriented x3? HEENT:? Normocephalic, atraumatic? Neck:? Supple without adenopathy or thyromegaly? Lungs:? Clear to auscultation bilaterally? Heart:? Regular rate and rhythm, no murmur, rub or gallop? Abdomen:? Soft, nontender, and gravid? Extremities:? No edema or erythema? Detailed Labor and Delivery Exam Patient Gravid: no Dilation (cm): 2 Effacement (%): 50 Cervix position: anterior Consistency: soft Contraction Frequency: rare Contraction intensity: Mild Fetus (Single) Station: -3 Amniotic Membrane Status: intact Heart Rate Baseline: 125 Monitor Accelerations: Present Monitor Decelerations: None Equine Science Instructor Variability: Moderate (6-25)
[2025-07-28 17:12] LABS: Hematocrit* 33.8 % (33.0-51.0); Hemoglobin* 11.2 gm/dL (12.0-16.0); Immature Granulocytes Abs Auto 0.03 K/uL (0.00-0.30); Immature Granulocytes Pct Auto 0.4 %; Lymphocytes Absolute Auto 2.30 K/uL (0.90-2.90); Mean Corpuscular HGB Conc 33 gm/dL (32-36); Mean Corpuscular Hemoglobin 29 pg (26-34); Mean Corpuscular Volume 88 fL (80-100); RDW Coefficient of Variation % 13.3 % (11.5-15.5); Red Blood Count* 3.86 m/uL (4.00-5.20); White Blood Count* 8.49 K/uL (4.50-11.00)
[2025-07-28 17:13] LABS: Slide Review Reflex No
[2025-07-28 17:49] LABS: Amnisure Rom* Negative
[2025-07-28 20:22] VITALS: BP 125/71; PULSE 79
[2025-07-28] MEDS: LACTATED RINGERS 1000 ML 1,000 ML 125 ML IV (20:51)
[2025-07-28] MEDS: OXYTOCIN 30 unit/500 ML in NS 30 UNIT/500 ML BAG IVPB (20:52)
[2025-07-28 20:56] VITALS: BP 134/77; PULSE 88
[2025-07-28] MEDS: CALCIUM CARBONATE 500 MG CHEW PO (20:56)
[2025-07-28 21:59] VITALS: BP 115/61; PULSE 74
[2025-07-28 23:03] VITALS: BP 110/56; PULSE 67
[2025-07-29] VITALS (94 sets, daily range): BP systolic 102–151; BP diastolic 51–82; PULSE 53–116; RESP 16–19; TEMP 36.1–37.1; O2SAT 88–100
[2025-07-29] MEDS: CALCIUM CARBONATE 500 MG CHEW PO ×3 (03:06→16:06)
[2025-07-29] MEDS: LACTATED RINGERS 1000 ML 1,000 ML 125 ML IV ×2 (04:19→19:19)
[2025-07-29] MEDS: ONDANSETRON 2 MG/ML inj 4 MG IV ×3 (07:28→19:09)
--- NOTE | 2025-07-29 09:35 | PM.OBPNL ---
Subjective Date Seen: 07/29/25 Narrative: Lizy slept well overnight with Morphine/Vistaril. Pitocin titration has continued overnight and it is now at 12mU. The cook catheter was removed by the RN around 0500 this am. She was checked by an RN around 0800 and was found to be 4-5cm/90%/-1 and no leaking of fluid. She is uncomfortable and breathing with contractions feeling them in anteriorly and low in her pelvis. She feels that baby is lower than when she was checked earlier. She has decided she would like an epidural but anesthesia is unable to come for placement until around 1000. Lizy is ok with this plan and is planning to utilize hydrotherapy until then. Will plan for AROM after epidural placement if it is safe and appropriate to do. Dr. Perdue is aware of the labor given that she is a TOLAC and has been updated on this progress and plan. Objective Vital Signs: Last Vital Signs Temp 98.3 F 07/29/25 09:10 Pulse 116 H 07/29/25 09:06 Resp 16 07/29/25 03:02 BP 118/73 07/29/25 09:06 Pulse Ox 98 07/29/25 07:23 Pelvic Exam Dilation (cm): 4-5 Effacement (%): 90 Station: -1 Contractions Monitor mode: External Contraction Frequency: 1-3 Contraction pattern: Regular Contraction intensity: Strong/Firm Pitocin Rate (mU/min): 12 Assessment Assessment: induction ongoing Station: -1 Status: Category l Heart Rate Baseline: 140 Group Home Variability: Moderate (6-25) Monitor Accelerations: Present Monitor Decelerations: None Plan Plan: ASSESSMENT:? at 39.4 weeks gestation? GBS negative? complicated by: moderate polyhydramnios, TOLAC, velamentous cord insertion, obesity? Labor type: medical IOL for polyhydramnios ? Blood type: A+? ?? PLAN:? 1. Pitocin titration per policy. AROM after epidural placement if appropriate. 2. Candidate for analgesia of choice. Requested epidural. Placement when anesthesia is available. ? 3. MD aware of TOLAC IOL per policy and updated on progress and plan. 4. Anticipate ? 5. IV in place and continuous monitoring per policy.
[2025-07-29] MEDS: LACTATED RINGERS 1000 ML 1,000 ML 1200 ML IV (11:00)
[2025-07-29] MEDS: ROPIVACAINE 0.2% 100 ml 100 ML 12 MG EPIDURAL (11:22)
[2025-07-29] MEDS: LIDOCAINE 2% (PF) 5 ML VIAL EPIDURAL (11:23)
--- NOTE | 2025-07-29 13:26 | PM.ANBPRC ---
PFSH PFS Medical History History of chorioamnionitis ?Z87.59 - Personal history of other complications of , childbirth and the puerperium (ICD-10) Episode of syncope ?R55 - Syncope and collapse (ICD-10) Surgical History H/O section ?Z98.891 - History of uterine scar from previous surgery (ICD-10) [place] teeth removed ?K08.409 - Partial loss of teeth, unspecified cause, unspecified class (ICD-10) Hx of tonsillectomy ?Z90.89 - Acquired absence of other organs (ICD-10) Family History Mother High blood pressure Depression High cholesterol Fibromyalgia Father Alcohol dependence Prostate cancer Brother No problems noted. 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 Lives with: David, and son Pets: 2 dogs Abuse: Denies past/present Special Diet: Denies Ok with a blood transfusion: yes Culture or confucianist beliefs: denies RISK FACTORS Exercise Times/wk: 3x/week walking Depression/Anxiety: Depression Seat Belt Use: Routinely Smoking: Denies past/present Alcohol/day: Denies while ; Social Caffeine: 1 pop or coffee per day Drug Use: Denies past/present Chicken Pox: Not as a child, vaccinated MRSA: Denies What is your current living situation?: I presently have a place to live Problems where you live: no known problems In the past 12 months, utilities in danger of being shut off: no In past 12 months, lack of transportation kept you from medical appts, meetings, work, or getting things needed for daily living: no In the past 12 mos, have been you worried that your food would run out before you had money to buy more?: never true In the past 12 mos, the food you bought just didn't last and you didn't have money to buy more?: never true Smoking Status: Never smoker How often do you have a drink containing alcohol: never How often do you have six or more drinks on one occasion: Never AUDIT-C Alcohol total score: 0 Non-prescribed substance use: denies use Caffeine: Yes How often does anyone, including family, friends and others, physically hurt you: never How often does anyone, including family, friends and others, insult or talk down to you: never How often does anyone, including family, friends and others, threaten you with harm: never How often does anyone, including family, friends and others, scream or curse at you: never Meds Home Medications and Allergies Home Medications ?Medication ?Instructions ?Recorded ?Confirmed ?Type prenat.vits,heidy,sox-ovmn-xhabc 1 tab PO QDAY 10/28/22 07/28/25 History docusate sodium 50 mg capsule 50 mg PO QDAY 01/17/25 07/28/25 History aspirin 81 mg chewable tablet 81 mg PO QDAY 02/13/25 07/28/25 History calcium carbonate (Tums) 200 mg PO BID 04/11/25 07/28/25 History polyethylene glycol 3350 17 4 g PO ONCE 06/19/25 07/28/25 History gram/dose oral powder (Miralax) famotidine 10 mg tablet (Pepcid AC) 10 mg PO QDAY 06/28/25 07/28/25 History Allergies Allergy/AdvReac Type Severity Reaction Status Date / Time No Known Drug Allergies Allergy Verified 07/25/25 10:30 Results Labs Labs: Laboratory Results - last 24 hr 07/28/25 07/28/25 15:56 16:45 WBC 8.49 RBC 3.86 L Hgb 11.2 L Hct 33.8 MCV 88 MCH 29 MCHC 33 RDW Coeff of Joseph 13.3 Plt Count 202 Neut % (Auto) 65.5 Lymph % (Auto) 27.1 [place] % (Auto) 6.2 Eos % (Auto) 0.7 Baso % (Auto) 0.1 Neut # (Auto) 5.56 Lymph # (Auto) 2.30 [place] # (Auto) 0.50 Eos # (Auto) 0.06 Baso # (Auto) 0.01 Abs Immat Gran (auto) 0.03 Imm/Tot Granulo (auto) 0.4 Membrane Rupture Negative Blood Type A Positive Antibody Screen NEGATIVE Vital Signs Vital Signs: Last Vital Signs Temp 98.7 F 07/29/25 11:17 Pulse 83 07/29/25 13:18 Resp 16 07/29/25 03:02 BP 110/55 L 07/29/25 13:18 Pulse Ox 98 07/29/25 11:27 Weight: 103.873 kg Height: 162.56 cm Anesthesia Procedures Epidural Insertion Patient Location: OB Start Time: Stop Time: Start Date: 07/29/25 Stop Date: 07/29/25 Reason for Block: procedure for pain Patient Position: sitting Performed By: Laura Mullen Preanesthetic Checklist: IV checked, site marked, risks and benefits discussed, monitors and equipment checked, pre-op evaluation, timeout performed and anesthesia consent Prep: chlorhexidine gluconate Monitoring: blood pressure monitoring, continuous pulse oximetry and heart rate Approach: midline Vertebral Space: lumbar (1-5) Epidural Technique: ADRIAN saline Needle Type: Tuohy needle Injection Technique: continuous catheter Needle gauge: 17 Needle Length (cm): 10 cm Needle Insertion Depth (cm): 7 Catheter Gauge: 19 Catheter Type: multi-orifice Catheter at skin depth (cm): 16 Test Dose Result: negative and lidocaine 1.5% with epinephrine 1 to 200,000
--- NOTE | 2025-07-29 14:47 | P.OBPN_ITS ---
Subjective Date Seen: 07/29/25 Narrative: Lizy is now comfortable with an epidural in place. She was starting to feel some rectal pressure before placement especially with sitting up for the epidural placement. On SVE she was found to be 6-7/90%/-1 with a bulging bag and fetus felt well applied especially with a contraction. We discussed AROM and the increased risk of cord prolapse with moderate polyhydramnios. She is agreeable to AROM and was performed without difficult. The fluid with AROM was clear but b loody. There was noted a few small clots that were bright and dark red with the exam before AROM and after AROM. Clear fluid that was mixing with the bleeding was observed at the time of rupture. There was known residual blood products at the edge of the placenta noted in 2 ultrasounds during the and it is felt that this is likely the source. Will monitor closely but feel reassured given the reassuring status along with the know blood products. Objective Vital Signs: Last Vital Signs Temp 98.4 F 07/29/25 13:34 Pulse 89 07/29/25 14:35 Resp 16 07/29/25 03:02 BP 108/55 L 07/29/25 14:35 Pulse Ox 98 07/29/25 11:27 Pelvic Exam Dilation (cm): 6-7 Effacement (%): 90 Station: -1 Contractions Monitor mode: External Contraction Frequency: 2-3 Contraction pattern: Regular Contraction intensity: Strong/Firm Pitocin Rate (mU/min): 13 Assessment Assessment: active labor and induction ongoing Station: -1 Amniotic Membrane Status: AROM Status: Category l Heart Rate Baseline: 145 Nursing Home Variability: Moderate (6-25) Monitor Accelerations: Present Monitor Decelerations: None Plan Plan: ASSESSMENT:? at 39.4 weeks gestation? GBS negative? complicated by: moderate polyhydramnios, TOLAC, velamentous cord insertion, obesity? Labor type: medical IOL for polyhydramnios, active labor? Blood type: A+? ?? PLAN:? 1. Continue Pitocin titration per policy. 2. AROM performed with clear fluid but moderate bleeding. Will continue to monitor status, bleeding, and amniotic fluid. 3. Epidural analgesia in place.? 4. MD notified of active labor status, AROM and bleeding. Will continue to updated on progress and plan. 5. Surgical team notified of active stage of labor status per policy. 6. Anticipate .? 7. IV in place and continuous monitoring per policy.
[2025-07-29] MEDS: LACTATED RINGERS 1000 ML 1,000 ML 111 ML IV (15:54)
--- NOTE | 2025-07-29 16:38 | PM.OBPNL ---
Subjective Date Seen: 07/29/25 Narrative: Lizy has been continuing to labor in multiple positions with an epidural in place. There has continued to be some blood along with the amniotic fluid but small amounts of FHR tracing has remained category 1. She requested that her epidural be turned down a her legs were very dense and she wasn't able to feel anything. Since it was turned down she is able to feel some pressure and move her legs somewhat but is still comfortable. She requested a SVE and was found to be 9.5cm with only an anterior lip. It was very soft but still present with a contractions so the decision was made to labor for a little longer. Will plan to recheck in about 30 minutes or sooner if she feels pressure or FHR tracing indicates an earlier check. Objective Vital Signs: Last Vital Signs Temp 98.5 F 07/29/25 16:19 Pulse 82 07/29/25 16:33 Resp 16 07/29/25 16:19 BP 117/58 L 07/29/25 16:33 Pulse Ox 98 07/29/25 11:27 Pelvic Exam Dilation (cm): 9.5 Effacement (%): 90 Station: +1 Contractions Monitor mode: External Contraction Frequency: 2-3 Contraction pattern: Regular Contraction intensity: Strong/Firm Pitocin Rate (mU/min): 13 Assessment Assessment: active labor Station: -1 Amniotic Membrane Status: AROM Status: Category l Heart Rate Baseline: 135 Monitor Accelerations: Present Monitor Decelerations: Variable (occasional small variable to the 120's with quick return to baseline ) Plan Plan: ASSESSMENT:? at 39.4 weeks gestation? GBS negative? complicated by: moderate polyhydramnios, TOLAC, velamentous cord insertion, obesity? Labor type: medical IOL for polyhydramnios, active labor? Blood type: A+? ?? PLAN:? 1. Continue Pitocin titration per policy. 2. Clear fluid persists with small amount of bleeding. Will continue to monitor status, bleeding, and amniotic fluid. 3. Epidural analgesia in place.? 4. MD updated. Will continue to updated on progress and plan. 5. Anticipate .? 6. IV in place and continuous monitoring per policy.
[2025-07-29] MEDS: miSOPROStoL 800 MCG/4 TABLET PR (18:15)
[2025-07-29] MEDS: TRANEXAMIC ACID 100 MG/ML INJ 1000 MG IV ×2 (18:20→21:00)
[2025-07-29] MEDS: METHYLERGONOVINE MALEATE 0.2 MG/ML INJ IM (18:26)
--- NOTE | 2025-07-29 18:55 | W.PM.VAGDE_ITS ---
OB Procedure Vag Delivery Mother Details Mother Details: The patient is a 30 year-old, 3, Para 1, admitted on 07/28/25 at 39.4 Days gestation. : 3 Para: 2 Weeks Gestation: 39.4 Admission Date: 07/28/25 Additional Details Amniotic Membrane Status: AROM Amniotic Membrane Rupture Date: 07/29/25 Amniotic Membrane Rupture Time: 12:08 Amniotic Membrane Fluid Description: Clear and Bloody (see previous notes for details ) Analgesia/Anesthesia Type: Epidural Waterbirth: No Pitcoin: Yes Intrapartal Events: Labor Induction Induction Method: Intracervical balloon catheter and per pitocin protocol Delivery augmentation: rupture of membranes Labor Onset: 08:00 Complete: 16:58 Pushin:08 Heart: heart tones during second stage were difficult to trace but category 2 based on what was obtained. Occasional variable decelerations to 100's with one noted to the 70's and good return to baseline. Delivery Details Delivery Date: 07/29/25 Delivery Time: 18:09 Route of delivery: Gender: Male Infant Viability: Alive; Heart Rate Present Position at Delivery: OA Delivery Details: Patient was admitted for IOL for polyhydramnios. IOL with a cook catheter and Pitocin titration and progressed with AROM augmentation. AROM noted at 1208 with clear fluid. Blood noted that was likely attributed to a know blood products noted on US. Patient was complete at 1658 and pushing at 1708. of a viable male at 1752 in left tilt with a hand over hand delivery with David. Vertex delivered OA. No shoulder. Nuchal cord x1 was easily reduced before delivery of the shoulders. Body delivered easily and without incident. Infant passed to mothers abdomen with a vigorous cry. Cord was clamped and cut at > 5 minutes. APGARS were 8 at one minute and 9 at five minutes respectively. Mouth was bulb suctioned. Intact placenta with a 3 vessel cord delivered spontaneously at 1809. Gentle and minimal traction was placed on the cord for placental delivery. Delivered Ramirez. Velamentous insertion noted with a significant amount of the vessels in the membranes and the cord insertion point approximately 6inches from the placenta edge. Fundus firm. 3rd degree and cervical laceration was id entified and confirmed by Dr. Perdue. OR for repair, see Dr. Hazel note for details. QBL 1575 cc. Mother and baby stable; mother plans to breastfeed. Infant weight pending. 1 Minute Interval Total Score: 8 5 Minute Interval Total Score: 9 Additional Details Shoulder Dystocia: No Placenta Delivery Time: 18:09 Placental Delivery Description: Spontaneous Procedure Done: Global Blood Loss: 1,575 (without OR QBL) Laceration: Perineal - 3rd Degree (3A perineal, vaginal and bilateral cervical repaired in OR) Episiotomy Description: None Blood Loss Measurement Type: QBL Bakri Used: No Sponge/Need Count Correct: Yes Cord Vessel Description: 3 Vessels, Nuchal Cord and Reduced Event Summary Status: Mother and were stable after delivery. Disposition: floor
[2025-07-29 19:12] LABS: Hematocrit* 30.1 % (33.0-51.0); Hemoglobin* 9.9 gm/dL (12.0-16.0); Immature Granulocytes Pct Auto 0.4 %; Mean Corpuscular HGB Conc 33 gm/dL (32-36); Mean Corpuscular Hemoglobin 29 pg (26-34); Mean Corpuscular Volume 89 fL (80-100); RDW Coefficient of Variation % 13.4 % (11.5-15.5); Red Blood Count* 3.40 m/uL (4.00-5.20); White Blood Count* 16.47 K/uL (4.50-11.00)
[2025-07-29 19:15] LABS: Immature Granulocytes Abs Auto 0.10 K/uL (0.00-0.30); Lymphocytes Absolute Auto 1.30 K/uL (0.90-2.90)
[2025-07-29 19:16] LABS: Slide Review Reflex No
[2025-07-29 19:27] LABS: INR 0.96 (0.91-1.10); Prothrombin Time 13.5 Seconds
[2025-07-29] MEDS: SODIUM CHLORIDE MINI 0.9% IVPB (19:43)
[2025-07-29] MEDS: CEFOXITIN IVPB (19:43)
--- NOTE | 2025-07-29 19:52 | SUR.OPER ---
Patient positioned supine on OR #4 bed for the induction. Pt. legs then moved into the lithotomy position for the procedure. Perioperative team supported arms bilaterally on arm boards. ? Final approval of positioning by surgeon.
--- NOTE | 2025-07-29 21:48 | PM.OBCN1 ---
OB - CN: HPI Date of Consult Date Seen: 07/30/25 Patient: [facility] Patient Consult date: 07/30/25 Requesting Physician: Elisabet Foster CNM Primary Care Provider: Not a Local Provider Consult Narrative Narrative: Delayed documentation due to patient cares. Consult/cares occurred at approximately 1830. The patient is a 30 year old G 3 P1 at 39 weeks gestation that was admitted to the Center on 07/28/25 for IOL as a TOLAC. complicated by history of C/S, polyhydramnios, velamentous cord insertion. Patient had a successful and spontaneous delivery of the placenta with Elisabet Foster CNM. Please see her note for details. I was consulted in the setting of PPH with concern for cervical laceration and 3rd degree perineal laceration. I presented urgently to the bedside. When I arrived to bedside, QBL was 1400cc. Patient had received IV TXA, pitocin, TX cytotec and IM methergine x1. The majority of her bleeding was noted during third stage, with large volume clots delivering alongside placenta. She received several uterotonics to address bleeding, though on clinical exam I'm told her uterine tone was firm where lower uterine segment atony was noted to be a possibility. I started by completing an exam, where 3A laceration was confirmed with slight bleeding noted. Laceration was noted to extend up the left vaginal sidewall. Bimanual massage performed, where uterine tone was good with fundus at umbilicus. Bleeding was noted to accumulate in vagina, where [place] retractor and weighted speculum was utilized to visualize and grasp cervix with a ring. Cervix was run circumferentially. Two areas of suspected laceration were noted - at 1 and 8 o'clock. Requested OR crew present due to ongoing PPH of 1.4L secondary to cervical laceration, tissue trauma and intermittent atony. Requested patient be crossmatched for 2 u pRBCs. While the OR crew was en route, I started repair of cervical laceration at the 3cm 1 o'clock in a running/locking fashion with 2-0 vicryl. Visualization was challenging throughout due to ongoing bleeding, where I could not reliably visualize the apex of the 8 o'clock cervical laceration in the room. Recommend transfer to OR for exam under anesthesia, repair of cervical lacerations, 3A perineal laceration repair and proceed as indicated. Explained that suction D&C could be required only if felt to be medically necessary due to bleeding and US findings in the OR. Reviewed risks of surgery including bleeding, infection, damage to surrounding structures, uterine perforation (if D&C performed). Verbal consent and written consent for blood transfusion if needed was provided. Patient expressed understanding and written consent was obtained. Patient was transferred to OR. QBL was noted to be 1575cc total in the room. Please see my subsequent operative note for details. History History 3 Elective abortions Para 2 Spontaneous abortions 1 Hx # Term Pregnancies 1 Ectopic pregnancies Hx # Pregnancies Multiple births Number of Living Children 1 Past Pregnancies Del. Date GA/Weeks Outcome Route wt Inf Gender Labor Lgth Anesthesia Location Provider Compli 06/01/23 41 live - full term low transverse 9 lb 2 oz Male 20 hours epidural Vu 09/14/24 10 spontaneous Suppes Delivery Date: 09/14/24 Last Updated by: Tiki Bridges ~ TACK PICKER, TACK PICKER D&C Labs Blood type: A (+) positive Rubella: immune RPR/VDLR: nonreactive GBS status: negative HBsAG: negative OB Labs: Lab Assessment Start: 07/28/25 15:54 Freq: ONCE Status: Complete Protocol: PC.OBGBS Activity Type Activity Date Activity User E-sign Co-sign Detail Recorded Client Recorded Date Recorded By Document 07/28/25 16:04 PORT No Response 07/28/25 16:11 PORTC 07/28/25 16:04 Lab Assessment GBS Status negative GBS Additional Criteria None No Treatment Needed OK Are Labs Available Yes Maternal Blood Type A Maternal RH Factor Positive Evaluate Maternal Rubella Immune Status Immune Hepatitis B Surface Antigen Negative Maternal HIV Status Negative Maternal Syphillis (RPR) Status Negative PFSH PFS Medical History History of chorioamnionitis ?Z87.59 - Personal history of other complications of , childbirth and the puerperium (ICD-10) Episode of syncope ?R55 - Syncope and collapse (ICD-10) Surgical History H/O section ?Z98.891 - History of uterine scar from previous surgery (ICD-10) [place] teeth removed ?K08.409 - Partial loss of teeth, unspecified cause, unspecified class (ICD-10) Hx of tonsillectomy ?Z90.89 - Acquired absence of other organs (ICD-10) Family History Mother High blood pressure Depression High cholesterol Fibromyalgia Father Alcohol dependence Prostate cancer Brother No problems noted. 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, Account Receivable Clerk Tech Lives with: David, and son Pets: 2 dogs Abuse: Denies past/present Special Diet: Denies Ok with a blood transfusion: yes Culture or moravian beliefs: denies RISK FACTORS Exercise Times/wk: 3x/week walking Depression/Anxiety: Depression Seat Belt Use: Routinely Smoking: Denies past/present Alcohol/day: Denies while ; Social Caffeine: 1 pop or coffee per day Drug Use: Denies past/present Chicken Pox: Not as a child, vaccinated MRSA: Denies What is your current living situation?: I presently have a place to live Problems where you live: no known problems In the past 12 months, utilities in danger of being shut off: no In past 12 months, lack of transportation kept you from medical appts, meetings, work, or getting things needed for daily living: no In the past 12 mos, have been you worried that your food would run out before you had money to buy more?: never true In the past 12 mos, the food you bought just didn't last and you didn't have money to buy more?: never true Smoking Status: Never smoker How often do you have a drink containing alcohol: never How often do you have six or more drinks on one occasion: Never AUDIT-C Alcohol total score: 0 Non-prescribed substance use: denies use Caffeine: Yes How often does anyone, including family, friends and others, physically hurt you: never How often does anyone, including family, friends and others, insult or talk down to you: never How often does anyone, including family, friends and others, threaten you with harm: never How often does anyone, including family, friends and others, scream or curse at you: never Meds Home Medications and Allergies Home Medications ?Medication ?Instructions ?Recorded ?Confirmed ?Type prenat.vits,heidy,waj-xfue-tnrgt 1 tab PO QDAY 10/28/22 07/28/25 History docusate sodium 50 mg capsule 50 mg PO QDAY 01/17/25 07/28/25 History aspirin 81 mg chewable tablet 81 mg PO QDAY 02/13/25 07/28/25 History calcium carbonate (Tums) 200 mg PO BID 04/11/25 07/28/25 History polyethylene glycol 3350 17 4 g PO ONCE 06/19/25 07/28/25 History gram/dose oral powder (Miralax) famotidine 10 mg tablet (Pepcid AC) 10 mg PO QDAY 06/28/25 07/28/25 History Allergies Allergy/AdvReac Type Severity Reaction Status Date / Time No Known Drug Allergies Allergy Verified 07/25/25 10:30 OB - H&P: Exam Physical Exam: Vital signs: Temp Pulse Resp BP Pulse Ox O2 Del Method O2 Flow Rate 97 F L 101 H 19 140/63 H 100 OxyMask 6 07/29/25 20:29 07/29/25 21:37 07/29/25 20:29 07/29/25 21:37 07/29/25 21:45 07/29/25 20:29 07/29/25 20:29 OB - Results Labs Labs: Short CBC 07/29/25 Range/Units 19:05 WBC 16.47 H (4.50-11.00) K/uL Hgb 9.9 L (12.0-16.0) gm/dL Hct 30.1 L (33.0-51.0) % Plt Count 196 (140-440) K/uL OB - CN: A/P Assessment and Plan (1) Velamentous insertion of umbilical cord: Status: Acute (2) Polyhydramnios in diaz in third trimester: Status: Acute (3) H/O section: Problem details: arrest of dilation in the setting of chorio 06/01/23 Status: Acute (4) Obesity affecting , antepartum: Status: Acute (5) Depression: Status: Acute
--- NOTE | 2025-07-29 21:52 | W.PM.GYNPROC ---
Procedure Note Time Seen by Provider: 21:52 Date of procedure: 07/29/25 Will [facility] bill your pro fee for this procedure?: Yes Pre-op diagnosis: hemorrhage Cervical lacerations 3A perineal laceration Procedure: Exam under anesthesia Suction D&C Repair of cervical lacerations Repair of 3A perineal laceration extended to left vaginal sidewall Anesthesia: MAC and regional Surgeon: Patric Perdue MD Estimated blood loss (mL): 213 IV fluids (mL): 1,150 Urine Output (mL): 200 Pathology: specimen obtained, sent to pathology Condition: stable Disposition: floor Findings: 3cm cervical lacerations at 1 and 8 o'clock Thickened and heterogenous endometrial stripe on TAUS Thin, homogenous endometrial stripe on post D&C TAUS 3A perineal laceration extending up left vaginal side wall Procedure Description: After verifying written informed consent, the patient was taken to the operating room. Anesthesia was induced and found to be adequate. She was placed in the dorsal lithotomy position in yellow fin stirrups with care taken to avoid neurologic injury. She did receive a preoperative dose of cefoxitin due to OASIS injury for surgical prophylaxis. She was prepared and draped in the usual sterile fashion. A surgical pause was conducted to confirm correct patient and procedure. Exam under anesthesia was completed with the above findings. Weighted speculum and [place] retractors inserted, where cervix was grasped with ring forceps and run circumferentially. Visual inspection confirmed the 1 o'clock laceration, where the proximal 2cm were closed but an additional 1cm closure was required to reapproximate the cervix entirely. Starting at the site of my former 2-0 vicryl, an additional 2-0 vicryl was applied in a running/locking fashion to close the laceration. Continued to run the cervix with ring forceps, where a similar 3cm laceration was noted at 8 o'clock and was bleeding. Repair was completed in a running locking fashion with 2-0 vicryl. Excellent hemostasis at both sites was confirmed. Transabdominal US (TAUS) was then performed, revealing approximately 2 to 2.5cm endometrial stripe with heterogenous appearance. The anterior cervix was carefully grasped with a ring forceps, where 10F curve suction catheter was inserted and advanced to the uterine fundus with aid of TAUS. The intrauterine contents were aspirated until there was no further return of tissue/blood products across 2 passes. TAUS again performed with thin/homogenous endometrial stripe noted. Specimen sent for pathologic evaluation. Ring forceps was removed, ensured hemostasis at former laceration repair sites. Bimanual exam confirmed firm uterine tone. Attention was then turned to the perineal laceration repair. Extension of the 3A perineal laceration was noted to the left vaginal sidewall which was noted to be bleeding. The proximal left vaginal sidewall laceration was closed in a running locking fashion with 2-0 vicryl to meet the midline vaginal component of the 3A laceration. Several reinforcing figure of eight sutures were applied with 2-0 vicryl across that incision due to persistent oozing. The external anal sphincter was noted to have separation of the capsule and <10% thickness of the muscle body. Capsule and disrupted musculature was grasped and reinforced with a 2-0 vicryl x2. The deeper proximal vaginal tissue was similarly closed in a simple interrupted suture x1. The 3rd degree laceration was subsequently repaired in the usual fashion with 2-0 vicryl. Skin edges were reinforced in a running subcuticular fashion with 3-0 vicryl. After securing all tissues, scant oozing was noted at the distal vaginal at base where the perineal laceration met the left vaginal extension where 2 additional figure of eight sutures were applied. Significant tissue friability was noted throughout repairs, addressed with additional suturing, electrocautery as appropriate and pressure. Pre-op hemoglobin was 9.9, confirmed normal coags. Excellent hemostasis was again confirmed throughout. A vaginal pack was inserted. Ding catheter placed with return of 200cc clear yellow urine. Patient received IV pitocin infusion, 1g TXA and 1u pRBCs during case. Surgical QBL was 213mL, totaling 1788mL from the entire delivery course. The patient was transferred to the recovery room in excellent condition. Endometrial curettings were submitted to pathology. Surgical debrief completed with the above details.
--- NOTE | 2025-07-29 21:56 | P.ANES_ITS ---
Anesthesia Charges Start Date/Time Anesthesia Start Date: 07/29/25 Anesthesia Start Time: 19:19 Stop Date/Time Anesthesia Stop Date: 07/29/25 Anesthesia Stop Time: 21:34 Summary Emergency: RAW MATERIAL HANDLER Coding CPT Codes CPT Codes: ANESTH VAGINAL PROCEDURES - 36235 ([id number]) P2 - PATIENT W/MILD SYST DISEASE, QZ - RAW MATERIAL HANDLER SVC W/O OB/GYN PHYSICIAN BY Additional Codes: Summary - Emergency: RAW MATERIAL HANDLER ([id number])
--- NOTE | 2025-07-29 21:56 | W.ANESCHARGE ---
Anesthesia Charges Start Date/Time Anesthesia Start Date: 07/29/25 Anesthesia Start Time: 19:19 Stop Date/Time Anesthesia Stop Date: 07/29/25 Anesthesia Stop Time: 21:34 Summary Emergency: NUT AND BOLT ASSEMBLER Coding CPT Codes CPT Codes: ANESTH VAGINAL PROCEDURES - 95154 ([id number]) P2 - PATIENT W/MILD SYST DISEASE, QZ - NUT AND BOLT ASSEMBLER SVC W/O BRINEYARD SUPERVISOR BY Additional Codes: Summary - Emergency: NUT AND BOLT ASSEMBLER ([id number])
[2025-07-29 23:19] LABS: Hematocrit* 31.1 % (33.0-51.0); Hemoglobin* 10.3 gm/dL (12.0-16.0); Immature Granulocytes Pct Auto 1.3 %; Mean Corpuscular HGB Conc 33 gm/dL (32-36); Mean Corpuscular Hemoglobin 29 pg (26-34); Mean Corpuscular Volume 89 fL (80-100); RDW Coefficient of Variation % 13.3 % (11.5-15.5); Red Blood Count* 3.50 m/uL (4.00-5.20); White Blood Count* 17.96 K/uL (4.50-11.00)
[2025-07-29 23:21] LABS: Immature Granulocytes Abs Auto 0.20 K/uL (0.00-0.30); Lymphocytes Absolute Auto 1.70 K/uL (0.90-2.90); Slide Review Reflex No
[2025-07-30 00:02] LABS: Blood Urea Nitrogen* 3 mg/dL (5-24); Creatinine* 0.7 mg/dL (0.5-1.5); Est. Creatinine Clearance* 103.32; Estimated Glomerular Filt Rate 121 ml/min
[2025-07-30 00:03] LABS: Alanine Aminotransferase* 24 U/L (4-35); Aspartate Amino Transferase* 42 U/L (12-35)
[2025-07-30] MEDS: IBUPROFEN 600 MG TABLET PO ×3 (00:25→16:30)
[2025-07-30] MEDS: ONDANSETRON 2 MG/ML inj 4 MG IV (00:26)
[2025-07-30 00:33] VITALS: BP 110/67; PULSE 78; RESP 18; O2SAT 98
[2025-07-30 03:35] VITALS: BP 110/70; PULSE 79; RESP 20; TEMP 37.2; O2SAT 98
[2025-07-30] MEDS: ACETAMINOPHEN 500 MG TABLET 1000 MG PO ×3 (03:37→20:40)
[2025-07-30 06:46] LABS: Hematocrit* 26.5 % (33.0-51.0); Hemoglobin* 8.9 gm/dL (12.0-16.0); Immature Granulocytes Pct Auto 0.5 %; Mean Corpuscular HGB Conc 34 gm/dL (32-36); Mean Corpuscular Hemoglobin 30 pg (26-34); Mean Corpuscular Volume 88 fL (80-100); RDW Coefficient of Variation % 13.5 % (11.5-15.5); Red Blood Count* 3.01 m/uL (4.00-5.20); White Blood Count* 15.17 K/uL (4.50-11.00)
[2025-07-30 07:00] LABS: Immature Granulocytes Abs Auto 0.10 K/uL (0.00-0.30); Lymphocytes Absolute Auto 2.50 K/uL (0.90-2.90); Slide Review Reflex No
[2025-07-30 07:50] VITALS: BP 109/71; PULSE 79; RESP 18; TEMP 36.6; O2SAT 98
[2025-07-30] MEDS: DOCUSATE SODIUM 100 MG CAPSULE PO (08:18)
--- NOTE | 2025-07-30 09:30 | PM.OBPNVD1 ---
OB - PN:Subj Subjective Date Seen: 07/30/25 Patient comments OB post-: no complaints, pain well controlled, tolerating diet and flatus present [place] status: and doing well [place] feeding status: exclusively Narrative: Complications:? PPH with transfusion, 3A with vaginal extension and cervical lacerations? Lizy feels well.? Her pain is well controlled with current medications.? She has no new complaints.? Urinary output was adequate with Ding catheter which was removed this morning. Has not voided since removal.? Has a good appetite, is tolerating a general diet, is passing flatus, and has not had a bowel movement.? Has scant amount of rubra lochia.? She is ambulating well.?She denies feeling lightheaded or dizzy. Will initiate PO iron supplementation and encouraged regular stool softener given her history of constipation. Vaginal packing was removed this morning by the RN without concerns. A small increase in bleeding noted immediately after removal but minimal since. OB - PN: Obj Exam Physical Exam: Vital signs: Temp Pulse Resp BP Pulse Ox O2 Del Method O2 Flow Rate 98.9 F 79 20 110/70 98 Room Air 6 07/30/25 03:35 07/30/25 03:35 07/30/25 03:35 07/30/25 03:35 07/30/25 03:35 07/30/25 03:35 07/29/25 20:29 Narrative: GENERAL APPEARANCE:? normal affect, alert, no distress? MOOD:? appropriate? CHEST:? clear to auscultation and percussion? HEART:? regular rate and rhythm? BREASTS: soft, nontender, no erythema, nipples [] intact? ABDOMEN:? soft, non-tender the uterine fundus is [] and is appropriate for the stage of recovery. Incision [].? PERINEUM:? mild edema of the perineum, there is a [] that is healing well.? EXTREMITIES:? normal and no edema? OB - PN: Obj Data Labs Labs: Laboratory Results - last 24 hr 07/28/25 07/29/25 07/29/25 15:56 19:05 23:10 WBC 16.47 H 17.96 H RBC 3.40 L 3.50 L Hgb 9.9 L 10.3 L Hct 30.1 L 31.1 L MCV 89 89 MCH 29 29 MCHC 33 33 RDW Coeff of Joseph 13.4 13.3 Plt Count 196 190 Neut % (Auto) 86.2 H 84.6 H Lymph % (Auto) 8.0 L 9.4 L [place] % (Auto) 5.2 4.5 Eos % (Auto) 0.1 0.1 Baso % (Auto) 0.1 0.1 Neut # (Auto) 14.20 H 15.20 H Lymph # (Auto) 1.30 1.70 [place] # (Auto) 0.90 0.80 Eos # (Auto) 0.00 0.00 Baso # (Auto) 0.00 0.00 Abs Immat Gran (auto) 0.10 0.20 Imm/Tot Granulo (auto) 0.4 1.3 INR 0.96 APTT 24 Fibrinogen 547 H BUN 3 L Creatinine 0.7 Estimated Creat Clear 103.32 Estimated GFR 121 AST 42 H ALT 24 Blood Type A Positive Antibody Screen NEGATIVE Crossmatch ([facility]) See Detail 07/30/25 06:10 WBC 15.17 H RBC 3.01 L Hgb 8.9 L Hct 26.5 L MCV 88 MCH 30 MCHC 34 RDW Coeff of Joseph 13.5 Plt Count 173 Neut % (Auto) 76.6 H Lymph % (Auto) 16.4 L [place] % (Auto) 5.9 Eos % (Auto) 0.5 Baso % (Auto) 0.1 Neut # (Auto) 11.60 H Lymph # (Auto) 2.50 [place] # (Auto) 0.90 Eos # (Auto) 0.10 Baso # (Auto) 0.00 Abs Immat Gran (auto) 0.10 Imm/Tot Granulo (auto) 0.5 INR APTT Fibrinogen BUN Creatinine Estimated Creat Clear Estimated GFR AST ALT Blood Type Antibody Screen Crossmatch ([facility]) OB - PN: A/P Delivery Assessment and Plan (1) Velamentous insertion of umbilical cord: Status: Acute (2) H/O section: Problem details: arrest of dilation in the setting of chorio 06/01/23 Status: Acute (3) Depression: Status: Acute (4) BMI 36.0-36.9,adult: Problem details: Prepregnancy BMI Status: Acute (5) care following vaginal delivery: Status: Acute (6) Lactating mother: Status: Acute (7) hemorrhage, delivered: Status: Acute (8) Type 3a perineal laceration: Status: Acute (9) Laceration of cervix, with delivery: Status: Acute Plan day: 1 Plan: routine care Comments: Vaginal packing removed this morning. Lochia stable since removal. Ding catheter removed this morning. Anticipate urination by this afternoon. Anticipate discharge home tomorrow.
--- NOTE | 2025-07-30 12:14 | PM.ANPOST ---
Post Anesthesia Note Post Anesthesia Note Patient seen: Inpatient Respiratory Status: adequate Cardiovascular Status: adequate Mental Status: baseline Pain: adequate Temp: baseline Anesthetic awareness: N/A Complications: none Follow care: none
[2025-07-30 12:15] VITALS: BP 100/66; PULSE 92; RESP 16; TEMP 36.7; O2SAT 97
[2025-07-30 16:20] VITALS: BP 112/71; PULSE 72; RESP 16; TEMP 36.6; O2SAT 98
[2025-07-30 21:00] VITALS: BP 117/71; PULSE 60; RESP 16; TEMP 36.6; O2SAT 98
[2025-07-31 01:00] VITALS: BP 114/75; PULSE 98; RESP 20; TEMP 36.6; O2SAT 99
[2025-07-31] MEDS: IBUPROFEN 600 MG TABLET PO ×2 (01:30→07:57)
[2025-07-31 04:37] VITALS: BP 102/65; PULSE 70; RESP 16; O2SAT 97
[2025-07-31] MEDS: ACETAMINOPHEN 500 MG TABLET 1000 MG PO (04:41)
--- NOTE | 2025-07-31 07:18 | P.DS_ITS ---
DS: Providers Provider Time Seen by Provider: 07:30 Date Seen: 07/31/25 Date of admission: 07/28/25 15:48 Primary care physician: Not a Local Provider Admitting Clinician: Elisabet Foster CNM Consults: 07/30/25 09:47 Consult to Physician [CONS] Routine Comment: Consulting Provider: Kacie Perdue Has provider been notified: Yes Attending Physician on discharge: Gilbert ELLINGTON MAJOR SALES ASSOCIATE Date of Discharge: 07/31/25 DS: Diagnosis Discharge Diagnosis (1) care following vaginal delivery: Status: Acute (2) Lactating mother: Status: Acute (3) hemorrhage, delivered: Status: Acute (4) Type 3a perineal laceration: Status: Acute (5) Laceration of cervix, with delivery: Status: Acute (6) Depression: Status: Acute Exam Narrative: Exam Narrative: GENERAL APPEARANCE:? normal affect, alert, no distress MOOD:? appropriate CHEST:? clear to auscultation HEART:? regular rate and rhythm ABDOMEN:? soft, non-tender the uterine fundus is 2 cm below Umbilicus, Midline and is appropriate for the stage of recovery. PERINEUM:? mild edema of the perineum, no bruising EXTREMITIES:? normal and +1 edema Const: Vital Signs, click to edit/add: Vital Signs - 24 hr 07/30/25 07:50 07/30/25 12:15 07/30/25 16:20 Temperature 97.8 F 98.0 F 97.8 F Pulse Rate [Pulse Oximeter] 79 92 72 Respiratory Rate 18 16 16 Blood Pressure [Le ft Arm] 109/71 100/66 112/71 Pulse Oximetry 98 97 98 Oxygen Delivery Me thod Room Air Room Air Room Air 07/30/25 21:00 07/31/25 01:00 07/31/25 04:37 Temperature 97.9 F 98 F Pulse Rate [Pulse Oximeter] 60 98 70 Respiratory Rate 16 20 16 Blood Pressure [Le ft Arm] 117/71 114/75 102/65 Pulse Oximetry 98 99 97 Oxygen Delivery Me thod Room Air Room Air OB - DS: Summary Hospital Course Hospital Course: Lizy is a 30 y.o. G 3 P 2 who was admitted to [facility] for induction of labor for moderate polyhydramnios and velamentous cord insertion.? She had a NVD that was complicated by hemorrhage (1575mL), 3rd degree perineal laceration and cervical lacerations. She needed to go to the OR for repair and suction D&C and received 1 unit PRBC. Today she feels well and is asymptomatic from blood loss. The pain is well controlled with current medications.? She has no new complaints.? She is breast feeding and reports things are going well. More than adequate breast milk supply and able to easily hand express. Able to hear swallows while she was nursing this morning. Plans to follow up with nurse later this week. the patient has done well.?She is proud of sucessfully having and says she feels much better than after her first which was a long induction with c section. Vitals have been stable except for elevated BP in recovery x 1. WNL for past two days.? She has remained afebrile.? Has a good appetite, is tolerating a general diet.? She is voiding without difficulty.? She is passing gas and has not had a bowel movement. She is ambulating and denies any dizziness. Has small amount of rubra lochia. She is planning copper IUD for prevention.? ?? Problems: hemorrhage, 3rd degree perineal laceration? ?? plan:? Discharge home with baby.? Follow up in 2 weeks and 6 weeks.? , will follow up with ? Hgb 8.9. iron supplement. Can take Floradix liquid iron as says on the box or Ferrous Sulfate 325mg every other day Labs WNL or stable with trending Continue stool softener. Ok to use colace, miralax, and senna to achieve regular, easy bowel movements. Then taper off as tolerated. Plan for copper IUD at 6 week visit I, JOSELITO Hunt CNM, was present for visit and have reviewed and agree with documentation by the Certified Nurse Midwifery Student.? Peripartum Data delivery method: Vaginal Laceration description: Perineal - 3rd Degree (+ cervical lacerations and vaginal laceration) Episiotomy description: None Procedures: Procedures Operation Date: 07/29/25 19:45 Actual Procedure Side Surgeon p Vaginal Laceration Repair, CERVICAL LACERATION REPAIR, THIRD DEGREE LACERATION, SUCTION D&C Kacie Perdue MD complications: transfusion (1 unit) Infant Gender: Male Infant Discharge Plan: Home Status at Discharge Functional status at discharge: independent ambulation Overall status at discharge: patient is progressing back to baseline Time Spent with Patient Time attestation: Total time spent providing and/or coordinating discharge services: Time spent: Less than 30 minutes Discharge Plan Discharge Disposition: Home, Self-Care Date of Admission: 07/28/25 15:48 Attending Provider on Discharge: Dina Mcpherson Consulting Providers: Kacie Perdue Primary Care Provider: Provider,Not a Local Condition: Stable Anticipated Discharge Date/Time: 07/31/25 09:54 Discharge Medications: Continued prenat.vits,heidy,[id number] Tablet 1 tab PO QDAY docusate sodium 50 mg capsule 50 mg PO QDAY polyethylene glycol 3350 [Miralax] 17 gram/dose powder 4 g PO ONCE Discontinued aspirin 81 mg tablet,chewable 81 mg PO QDAY famotidine [Pepcid AC] 10 mg tablet 10 mg PO QDAY calcium carbonate [Tums] 200 mg calcium (500 mg) tablet,chewable 200 mg PO BID Discharge Orders: Discharge Order (Routine); Ordered 07/31/25 Ordered By: Dina Mcpherson Patient Education: OB Over the Counter Medication Information, OB Vaginal/Breast Feeding Additional Instructions: Discharge instructions were reviewed with the patient including signs and symptoms of infection and home going medications Nothing vaginally for 6 weeks: no tampons or intercourse Do not drive while taking narcotic pain medication(s) Off Work or School for 6 weeks Symptoms to report to doctor: * Bleeding that saturates more than one pad per hour * Passing clots larger than the size of a golf ball * Pain not relieved by prescribed medication * Fever above 100.4 degrees Fahrenheit * A foul vaginal odor * Difficulty in emotions, mood, and functions * Thoughts of hurting yourself and/or * Painful, reddened area in your breast * Any drainage, redness, or tenderness in your IV/epidural site * Severe headache that doesn't improve after taking medications * Changes in vision, including temporary loss of vision, blurred vision, and/or light sensitivity * Upper abdominal pain (usually under ribs on the right side) * Decrease in urination or painful, frequent urinating * Chest pain * Shortness of breath * Tenderness or pain with redness and/swelling in the calf(s) of your leg 2-week visit: discuss feeding concerns, review control options and screen for anxiety/depression. 6-week visit for an annual exam. consultation services are available to all mothers and babies for the first year after delivery.? To make an appointment, please call [phone]. Activity Level: Activity as Tolerated Discharge Diet: Regular Follow Up Appointments: [facility] [Provider Group] Forms: Patient Belongings, MyHealth Info Instructions
[2025-07-31] MEDS: DOCUSATE SODIUM 100 MG CAPSULE PO (07:57)
[2025-07-31 08:00] VITALS: BP 100/63; PULSE 77; RESP 16; O2SAT 98
== END 2025-07-31 10:25 | disposition home or self-care (01) | DRG 768 ==
PROVIDERS: Obstetrics & Gynecology; Admitting Provider Advanced Practice Midwife; Visit Provider Advanced Practice Midwife
PROC: 0UQG0ZZ Repair Vagina, Open Approach (ICD-10-PCS; principal; 2025-07-29 19:45)
DX: O34.211 Maternal care for low transverse scar from previous cesarean delivery (principal); Z37.0 Single live birth; O71.3 Obstetric laceration of cervix; O70.21 Third degree perineal laceration during delivery, IIIa; O72.0 Third-stage hemorrhage; O72.1 Other immediate postpartum hemorrhage; O40.3XX0 Polyhydramnios, third trimester, not applicable or unspecified; O99.214 Obesity complicating childbirth; E66.9 Obesity, unspecified; O43.123 Velamentous insertion of umbilical cord, third trimester; O99.344 Other mental disorders complicating childbirth; F32.A Depression, unspecified; Z3A.39 39 weeks gestation of pregnancy
CPT/HCPCS: 00940; 01967; 36415; 59200; 76998; 82565; 84112; 84450; 84460; 84520; 85025; 85384; 85610; 85730; 86592; 86850; 86900; 86901; 86922; 99140; A9270; C1726; J0694; J2210; J2250; J2270; J2405; J2704; J2795; J3010; J7120; P9016

== ENCOUNTER 2025-08-01 15:14 | Outpatient (CLI) | payer OTHER, SELFPAY ==
--- NOTE | 2025-08-01 17:13 | W.PM.LAC.MC ---
Consult Note - Mom Date of Visit Date of visit: 08/01/25 Reason for consultation: Assistance Needed and Breast/Nipple Issue (pain with feeding) Visit Code: Visit Patient's Information Phone number: [phone] Para: 2 Allergies No Known Drug Allergies Allergy (Verified 07/25/25 10:30) Mother's Medical History: Medical History (Updated 07/31/25 @ 09:47 by Laura Moreira) Polyhydramnios in diaz in third trimester ?O40.3XX0 - Polyhydramnios, third trimester, not applicable or unspecified (ICD-10) Velamentous insertion of umbilical cord ?O43.129 - Velamentous insertion of umbilical cord, unspecified trimester (ICD-10) History of chorioamnionitis ?Z87.59 - Personal history of other complications of , childbirth and the puerperium (ICD-10) Episode of syncope ?R55 - Syncope and collapse (ICD-10) Work Plans: return to work Delivery Information Delivery type: Vaginal Weight: 3.82 kg Discharge Weight: 3.648 kg Percentage weight loss: 4.6 Baby's Information Baby's Age at Visit: 3 days Baby's Provider or Clinic: [facility] Jaundice: Yes Past Experience Past Experience: Yes Current Frequency of Day Feedings: every 3 hrs day and night, needs waking for feedings Both Breasts: Yes Suck: strong Latch: hard to get latched, on and off a lot Length of Time: 10-15 min, sometimes just one side Pumping Pumping: Yes Quantity Pumped: to relieve fullness Supplementing EBM Supplement: Yes (took a bottle today, 25 ml and was content) Formula Supplement: No Baby Elimination Number of Wet Diapers a Day: meeting his goals Number of BM a Day: meeting his goals Breast/Nipple Condition Breast Information: Breasts are symmetrical with rounded lower quadrants, intramammary distance is less than 1.5 inches. Nipples are supple, everted prior to feeding. Nipples are erythematous, no open wounds but red. Also crease jang are present even before feeding baby. Breast Shape: Round Engorgement: Yes (slight, Lizy is managing well with pumping prn) Interventions for Engorgement: Cold Pack, Hand Expressing Breast Milk and Pumping Maternal Nipple Condition - Left: Common Nipple Maternal Nipple Condition - Right: Common Nipple Sore Nipples: Yes Interventions for Sore Nipples: Lansinoh/Nipple Cream, Soothies/Hydrogel Pads and Expressed Breast Milk Baby Assessment Skin: Normal Tongue/frenulum: Restricted mid-range Palate: Average Lips: Relaxed and Symmetrical Jaw Alignment: Receding (slight) Mucosa: [place], moist Onsite Observation Pre-Feed weight: 3657 kg Position: Cross cradle and Football Attachment/latch-on achieved: Not achieved (babe not interested in feeding, will suck 3 times and come off contented) Pre-Nursing Left Nipple: Redness and Creased/Beveled Pre-Nursing Right Nipple: Redness and Creased/Beveled Assessments/Interventions Assessments/Interventions: Worked with mom to achieve asymmetrical latch technique for a wide, deep latch ; babe not interested in feeding so not sure if this will work well or not. Discussed different options to try and get a deeper latch for increased comfort. Babe does have a slight tongue tie; consider having released if no improvement in the next 48 hrs with new techniques. (Sibling had to have anterior tongue tie released) Nipple care reviewed as well; can try hydrocortisone TID x3 days mixed, nipple cream, soothies (not at same time as creams). Deeper latch for decreased trauma most important to heal nipples. Education provided: Early feeding cues to maximize timing of latching, Asymmetric latch technique for wide/deep latch to increase milk, Transfer for baby and increase comfort for mom, Supply/demand nature of milk supply and Pumping for milk management (has a history of oversupply; pump just enough to feed baby if do a bottle, if engorged, enough to relieve fullness but not pump to empty) Follow-Up Suggested follow up: Appointment in 1-3 days Recommend baby be seen by provider for:: consider tongue release if pain persists for 48 hrs more despite other techniques Time Spent Time spent with patient (min): 60 Meds Home Medications and Allergies Home Medications ?Medication ?Instructions ?Recorded ?Confirmed ?Type prenat.vits,heidy,[id number] 1 tab PO QDAY 10/28/22 07/28/25 History docusate sodium 50 mg capsule 50 mg PO QDAY 01/17/25 07/28/25 History polyethylene glycol 3350 17 4 g PO ONCE 06/19/25 07/28/25 History gram/dose oral powder (Miralax) Allergies Allergy/AdvReac Type Severity Reaction Status Date / Time No Known Drug Allergies Allergy Verified 07/25/25 10:30
== END 2025-08-01 15:15 | disposition home or self-care (01) ==
PROVIDERS: Visit Provider Obstetrics & Gynecology
DX: Z39.1 Encounter for care and examination of lactating mother (principal)
CPT/HCPCS: G0463

== ENCOUNTER 2025-08-10 15:54 | Outpatient (CLI) | payer OTHER, SELFPAY | END 2025-08-10 15:55 | disposition home or self-care (01) | LOC: NFLDREF 08-25 02:13 | PROVIDERS: Visit Provider Advanced Practice Midwife | DX: R30.9 Painful micturition, unspecified (principal) | CPT/HCPCS: 87086 ==

== ENCOUNTER 2025-08-14 10:28 | Emergency (ER) | payer OTHER, SELFPAY ==
--- OUTSIDE RECORDS SUMMARY | 2025-08-14 08:40 | XMS_ITS | Encounter Summary ---
Author Organization [facility] Address [address], [place] [address] Care Team Providers Care Cigar Machine Feeder Name Role Phone Found, No Pcp MD Primary Care Provider Unavailab le Reason for Visit * Reason Comments URINARY PROBLEM Encounter Details Date Type Department Care Team (Late st Contact Info) Description 08/14/2025 8:40 AM CDT Office Visit [facility] [address] [place] [address] Radha Cotter, SUPERVISOR STRIPPING, HEALTH CARE FACILITIES INSPECTOR [address] [place] [address] state (Primary Dx); Dysuria Social History Tobacco Use Types Packs/Day Years Used Date Smoking Tobacco: Never Passive Smoke Exposure: Never Tobacco Cessation:Counseling Given: Not Answered Comments No Sex and Gender Information Value Date Recorded Sex Assigned at Not on file Legal Sex Female 4:08 PM CDT Gender Identity Not on file Sexual Orientation Not on file documented as of this encounter Last Filed Vital Signs Vital Sign Reading Time Taken Comments Blood Pressure 134/79 08/14/2025 8:57 AM CDT Pulse 68 08/14/2025 8:57 AM CDT Temperature 36.8 C (98.3 F) 08/14/2025 8:57 AM CDT Respiratory Rate 18 08/14/2025 8:57 AM CDT Oxygen Saturation 99% 08/14/2025 8:57 AM CDT Inhaled Oxygen Concentration - - Weight - - Height - - Body Mass Index - - documented in this encounter Progress Notes * Radha Cotter, SUPERVISOR STRIPPING, HEALTH CARE FACILITIES INSPECTOR - 08/14/2025 8:40 AM CDT Patient: Lizy Mcdonough Date of : 1995 (30 y.o.) Subjective Chief Complaint: Chief Complaint Patient presents with URINARY PROBLEM History of Present Illness: Lizy Mcdonough is a 30 y.o. female with concern for UTI. States she has burning with urination, cloudy urine, and feels pain and swelling in her urethra x 5 days. She had avaginal delivery () 17 days ago. History of chorioamnionitis with previous . Per chartreview, she had a third-degree perineal, vaginal, bilateral cervical lacerations which were suturedin the OR. She is currently on Macrobid which was started by her train announcer 3 days ago for dysuria. I am unable to view the urine culture but she states that it showed less than 50,000 mixed Gram-positive organisms. This was obtained via clean catch. Symptoms have not improved on Macrobid. It feels like and paying shards of glass?? . [place] feverish last night, no measured temp. When showering 2 daysago she thought she noticed a kidney stone in her hand. No history of kidney stones or UTIs. Past medical history, medications, allergies, social history reviewed in [facility]. Objective Physical Exam: Vital Signs: BP 134/79 Pulse 68 Temp 36.8 ??C (98.3 ??F) Resp 18 SpO2 99% Yes GENERAL: Alert, non toxic appearing. HEENT: Normal conjunctiva. MMM. No oral mucosal lesions. ABDOMEN: Normoactive bowel sounds x 4. Soft, non-tender, non-distended. No rebound or guarding. NEURO: Alert and oriented. MUSCULOSKELETAL: Equivocal right-sided CVA tenderness. GENITOURINARY: Deferred SKIN: Skin is warm and dry. No rashes. Laboratory Testing: Results for orders placed or performed in visit on 08/14/25 Urinalysis Routine, Micro/Culture if Pos: Clean Catch Specimen: Clean Catch; Urine Result Value Ref Range Urine Microscopic Evaluation Reflex Order Comment Urinalysis results meet criteria for reflex, urine microscopic evaluation performed. Color Straw Clarity Cloudy (A) Clear Specific [place] 1.010 1.005 - 1.030 pH 6.0 5.0 - 8.0 Protein Trace Neg/Trace mg/dL Glucose Negative Negative mg/dL Ketones Negative Negative mg/dL Urobilinogen 0.2 <2.0 EU/dL Bilirubin Negative Negative Blood Large (A) Neg/Trace Nitrite Negative Negative Leukocyte Esterase Large (A) Negative Source Clean Catch Urine Microscopic Evaluation: Clean Catch Specimen: Clean Catch; Urine Result Value Ref Range Urine Culture Comment Urinalysis results meet criteria for reflex, culture performed. Red Blood Cells 21-50 (A) 0 - 3 /HPF White Blood Cells 51-100 (A) 0 - 5 /HPF Bacteria Many (A) None Seen /HPF Squamous Epithelial Cells Few None Seen, Occasional, Few /HPF White Blood Cell Clumps Present (A) None Seen /HPF Urine culture pending Assessment and Plan Lizy Mcdonough is a 30 y.o. female presents with dysuria and cloudy urine worsening on Macrobid. Heroriginal UTI diagnosis came from urine via clean catch and given she is 17 days , I suspect this is most likely to be contamination. Discussed with patient that I am concerned given the amount of tearing she had, history of chorioamnionitis with previous , and the fact that symptoms are worsening on Macrobid, making UTI less likely. I feel patient needs further evaluation in the ER and to be seen by an OB provider to rule out more worrisome etiology such as endometritis and infection from retained products. Patient is agreeable to go and prefers to go to [place] where she has established and also works. Urine culture from today is pending but anticipate straight cath urine in the ER which would be more accurate whatever as I suspect today's we will also show contamination. Pt agreeable to plan of care. Patient seen by and discussed with attending provider Jumana Gracia PA-C. Impression: 1. state 2. Dysuria Patient Discharge Medications: Medications Prescribed this Visit None * Jumana Gracia PA-C - 08/14/2025 8:40 AM CDT Urgent Care NED Fellow Preceptor Note [facility] Patient: Lizy Mcdonough Age: 30 y.o. Date Of : 1995 Date of Service: 08/14/2025 Supervising Provider: Jumana Gracia, PAC For: Radha Cotter APRN, * DOCUMENTATION 30 y.o. female present to today for evaluation of increasing vaginal pain and urethral irritation Patient has a clean-catch UA last week with a questionable UTI in his put on 3 days of Macrobid, ofnote the patient is about 17 days from vaginal after and had extensive tears including perineal tears and cervical tears requiring OR repair Urine culture at that time did not grow out any significant bacterial growth Patient has been fatigued but no significant abdominal pain or fevers. She does not note a history of chorioamnionitis after her last . Given complicated past with the chorioamnionitis and extensive tears following delivery the patient is referred to the ER for further evaluation. Differential does include endometritisand retained products in addition to infection/complications from extensive tearing. The patient is referred to the ER for further evaluation and consideration of the OB consultation. She prefers to go back to [facility] Emergency room. She will call her OB service on the way over there and let them know that she is coming. Clean-catch UA was obtained prior to our evaluation of the patient in his resulted as below. Patient will benefit from a straight cath UA from the ER but given this was obtained here culture is pending for this is well. Patient discussed with and evaluated at the bedside with Radha Cotter APRN, *. Please refer totheir documentation. I am in agreement with their assessment and plan. DIAGNOSIS: ICD-10-CM 1. Dysuria R30.0 Urinalysis Routine, Micro/Culture if Pos: Clean Catch Urine Microscopic Evaluation: Clean Catch Urine Culture No orders of the defined types were placed in this encounter. Reviewed Nursing Notes: Jordyn Ha RN 08/14/25 0903 Signed Lizy Mcdonough is a 30 y.o.female presents to the Urgent Care for URINARY PROBLEM Symptoms: burning with urination, pain in urethra, thinks she may have passed a kidney stone on Thursday, and cloudy urine, urethra feels swollen She is currently taking Macrobid, not helping. Urine culture back less than 50,000 mixed gram positives 2.5 weeks . Symptoms began 5 day(s) ago and are are worsening. Fever is felt warm last night. Significant urinary history: n/a. Current medications include Macrobid. Concern or exposure to STD/STI: no. Last Menstrual Period: No LMP recorded. (Menstrual status: ). Patient requests an excuse letter for work/school: No Vitals: 08/14/25 0857 BP: 134/79 Pulse: 68 Resp: 18 Temp: 36.8 ??C (98.3 ??F) SpO2: 99% LABS - IMAGING - MEDICATIONS LABS/EKG: Results for orders placed or performed in visit on 08/14/25 Urinalysis Routine, Micro/Culture if Pos: Clean Catch Specimen: Clean Catch; Urine Result Value Ref Range Urine Microscopic Evaluation Reflex Order Comment Urinalysis results meet criteria for reflex, urine microscopic evaluation performed. Color Straw Clarity Cloudy (A) Clear Specific [place] 1.010 1.005 - 1.030 pH 6.0 5.0 - 8.0 Protein Trace Neg/Trace mg/dL Glucose Negative Negative mg/dL Ketones Negative Negative mg/dL Urobilinogen 0.2 <2.0 EU/dL Bilirubin Negative Negative Blood Large (A) Neg/Trace Nitrite Negative Negative Leukocyte Esterase Large (A) Negative Source Clean Catch Urine Microscopic Evaluation: Clean Catch Specimen: Clean Catch; Urine Result Value Ref Range Urine Culture Comment Urinalysis results meet criteria for reflex, culture performed. Red Blood Cells 21-50 (A) 0 - 3 /HPF White Blood Cells 51-100 (A) 0 - 5 /HPF Bacteria Many (A) None Seen /HPF Squamous Epithelial Cells Few None Seen, Occasional, Few /HPF White Blood Cell Clumps Present (A) None Seen /HPF IMAGING: No results found. INTERVENTIONS: Jumana [facility] documented in this encounter Nursing Notes * Jordyn Ha RN - 08/14/2025 8:40 AM CDT Lizy Mcdonough is a 30 y.o.female presents to the Urgent Care for URINARY PROBLEM Symptoms: burning with urination, pain in urethra, thinks she may have passed a kidney stone on Thursday, and cloudy urine, urethra feels swollen She is currently taking Macrobid, not helping. Urine culture back less than 50,000 mixed gram positives 2.5 weeks . Symptoms began 5 day(s) ago and are are worsening. Fever is felt warm last night. Significant urinary history: n/a. Current medications include Macrobid. Concern or exposure to STD/STI: no. Last Menstrual Period: No LMP recorded. (Menstrual status: ). Patient requests an excuse letter for work/school: No documented in this encounter Plan of Treatment Pending Results Name Type Priority Associated Diagnoses Date /Time Urine Culture Microbiology STAT Dysuria 08/14/2025 9:10 AM CDT documented as of this encounter Procedures Procedure Name Priority Date/Time Associated Diagnosis Comments URINALYSIS ROUTINE, MICRO/CULTURE IF POS STAT 08/14/2025 9:10 AM CDT Dysuria UA MICRO STAT 08/14/2025 9:10 AM CDT Dysuria documented in this encounter Results * (ABNORMAL) Urine Microscopic Evaluation: Clean Catch (08/14/2025 9:10 AM CDT) Urine Culture Comment Urinalysis results meet criteria for reflex, culture performed. 08/14/2025 9:41 AM T [facility] Red Blood Cells 21-50(A) 0 - 3 /HPF 08/14/2025 9:41 AM T [facility] White Blood Cells 51-100(A) 0 - 5 /HPF 08/14/2025 9:41 AM [facility] Bacteria Many(A) None Seen /HPF 08/14/2025 9:41 AM [facility] Squamous Epithelial Cells Few None Seen, Occasiona l, Few /HPF 08/14/2025 9:41 AM [facility] White Blood Cell Clumps Present(A) None Seen /HPF 08/14/2025 9:41 AM [facility] Urine URINE SPECIMEN COLLECTION, CLEAN CATCH / Unknown Non-blood Collection / Unknown 08/14/2025 9:10 AM CDT 08/14/2025 9:19 AM CDT us Jumana E Gracia PA-C LAB_1 Final Res ult Performing Organization Address [facility] de Phone Number [facility] CLIA: [id number] [address] [place] [address] * (ABNORMAL) Urinalysis Routine, Micro/Culture if Pos: Clean Catch (08/14/2025 9:10 AM CDT) Urine Microscopic Evaluation Reflex Order Comment Urinalysis results meet criteria for reflex, urine microscopic evaluation performed. 08/14/2025 9:41 AM [facility] Color Straw 08/14/2025 9:41 AM [facility] Clarity Cloudy(A) Clear 08/14/2025 9:41 AM [facility] Specific [place] 1.010 1.005 - 1.030 08/14/2025 9:41 AM [facility] pH 6.0 5.0 - 8.0 08/14/2025 9:41 AM [facility] Protein Trace Neg/Trace mg/dL 08/14/2025 9:41 AM [facility] Glucose Negative Negative mg/dL 08/14/2025 9:41 AM [facility] Ketones Negative Negative mg/dL 08/14/2025 9:41 AM [facility] Urobilinogen 0.2 <2.0 EU/dL 08/14/2025 9:41 AM [facility] Bilirubin Negative Negative 08/14/2025 9:41 AM [facility] Blood Large(A) Neg/Trace 08/14/2025 9:41 AM [facility] Nitrite Negative Negative 08/14/2025 9:41 AM [facility] Leukocyte Esterase Large(A) Negative 08/14/2025 9:41 AM [facility] Source Clean Catch 08/14/2025 9:41 AM [facility] Urine URINE SPECIMEN COLLECTION, CLEAN CATCH / Unknown Non-blood Collection / Unknown 08/14/2025 9:10 AM CDT 08/14/2025 9:19 AM T us Jumana Gracia PA-C LAB_1 Final Res ult Performing Organization Address [facility] de Phone Number [facility] CLIA: [id number] [address] [place] [address], [facility] documented in this encounter Visit Diagnoses Diagnosis state- Primary Routine follow-up Dysuria documented in this encounter Care Teams Cigar Machine Feeder Relationship Specialty Start Date End Date Found, No Pcp, [address] [place] [address] PCP - General 03/01/25 documented as of this encounter
--- OUTSIDE RECORDS SUMMARY | 2025-08-14 10:31 | XMS_ITS | Clinical Summary ---
Author Organization [facility] Address [address] [place] [address] Care Team Providers Care Internal Medicine Veterinary Technician Name Role Phone Found, No Pcp MD Primary Care Provider Unavailab le Source Comments You are receiving this document as you are listed as the primary care provider,follow-up provider, or the patient has been referred to you for consultation.This is in compliance with the Medicare andMedicaid EHR Incentive Program,which states Providers who transition their patient to another setting of careor provider of care or refers their patient to another provider of care shouldprovide summary care record for each transition of care or referral. [facility] Allergies No known active allergies Medications nitrofurantoin monohydrate macrocrystal (MACROBID) 100 MG capsule Take 1 Capsule (100 mg) by mouth two times a day. Active vitamin-ferrous fumarate-folic acid (PRENATALPLUS) 27-1 MG tablet Take 1 Tablet by mouth daily. Active Encounters Date Type Department Care Team Description 08/14/2025 8:40 AM CDT [facility] [address] [place] [address] Radha Cotter, KILN TRANSFER OPERATOR, INDUSTRIAL CUSTODIAN state (Primary Dx); Dysuria from Last 3 Months Social History Tobacco Use Types Packs/Day Years Used Date Smoking Tobacco: Never Passive Smoke Exposure: Never Tobacco Cessation:Counseling Given: Not Answered Comments No Sex and Gender Information Value Date Recorded Sex Assigned at Not on file Legal Sex Female 4:08 PM CDT Gender Identity Not on file Sexual Orientation Not on file Last Filed Vital Signs Vital Sign Reading Time Taken Comments Blood Pressure 134/79 08/14/2025 8:57 AM CDT Pulse 68 08/14/2025 8:57 AM CDT Temperature 36.8 C (98.3 F) 08/14/2025 8:57 AM CDT Respiratory Rate 18 08/14/2025 8:57 AM CDT Oxygen Saturation 99% 08/14/2025 8:57 AM CDT Inhaled Oxygen Concentration - - Weight - - Height - - Body Mass Index - - Plan of Treatment Health Maintenance Due Date Last Done Comments Cervical Cancer Screening Due 1997 Hep C Screening (Preventive Services) 1997 HIV Screening (Preventive Services) 2013 Adult Preventive Visit 2015 HepB Vaccine (1) 2016 COVID-19 Vaccine ( season) 2025 11/08/2020, 10/18/2020 Influenza Vaccine (#1) 2025 , 08/16/2022, 08/28/2021, Additional history exists DTaP/Tdap/Td Vaccine (10 - Tdap) 05/09/2035 05/09/2025, 03/13/2023, 06/24/2019, Additional history exists Zoster/Shingles Vaccine (1 of 2) 2047 Hib Vaccine Completed 07/18/1998, 09/26, 1997, Additional history exists IPV (Polio) Vaccine Completed 04/19/2002, 07/18/1998, 1997, Additional history exists MCV4 Vaccine Completed 08/01/2013, 06/06/2009 HPV Vaccine Completed 07/31/2014, 04/2013, 05/06/2012 HepA Vaccine Completed 07/31/2014, 08/01/2013 Meningococcal B Vaccine Aged Out No l onger eligible based on patient's age to complete this topic Pneumococcal Vaccine Aged Out No long er eligible based on patient's age to complete this topic Procedures Procedure Name Priority Date/Time Associated Diagnosis Comments UA MICRO STAT 08/14/2025 9:10 AM CDT Dysuria URINALYSIS ROUTINE, MICRO/CULTURE IF POS STAT 08/14/2025 9:10 AM CDT Dysuria from Last 3 Months Results * (ABNORMAL) Urinalysis Routine, Micro/Culture if Pos: Clean Catch (08/14/2025 9:10 AM CDT) Urine Microscopic Evaluation Reflex Order Comment Urinalysis results meet criteria for reflex, urine microscopic evaluation performed. 08/14/2025 9:41 AM [facility] Color Straw 08/14/2025 9:41 AM [facility] Clarity Cloudy(A) Clear 08/14/2025 9:41 AM [facility] Specific [place] 1.010 1.005 - 1.030 08/14/2025 9:41 AM [facility] pH 6.0 5.0 - 8.0 08/14/2025 9:41 AM [facility] Protein Trace Neg/Trace mg/dL 08/14/2025 9:41 AM [facility] Glucose Negative Negative mg/dL 08/14/2025 9:41 AM [facility] Ketones Negative Negative mg/dL 08/14/2025 9:41 AM [facility] Urobilinogen 0.2 <2.0 EU/dL 08/14/2025 9:41 AM [facility] Bilirubin Negative Negative 08/14/2025 9:41 AM [facility] Blood Large(A) Neg/Trace 08/14/2025 9:41 AM [facility] Nitrite Negative Negative 08/14/2025 9:41 AM [facility] Leukocyte Esterase Large(A) Negative 08/14/2025 9:41 AM [facility] Source Clean Catch 08/14/2025 9:41 AM [facility] Urine URINE SPECIMEN COLLECTION, CLEAN CATCH / Unknown Non-blood Collection / Unknown 08/14/2025 9:10 AM CDT 08/14/2025 9:19 AM CDT us Jumana Gracia PA-C LAB_1 Final Res ult [facility] CLIA: [id number] [address] [place] [address], [facility] * (ABNORMAL) Urine Microscopic Evaluation: Clean Catch (08/14/2025 9:10 AM CDT) Urine Culture Comment Urinalysis results meet criteria for reflex, culture performed. 08/14/2025 9:41 AM T [facility] Red Blood Cells 21-50(A) 0 - 3 /HPF 08/14/2025 9:41 AM T [facility] White Blood Cells 51-100(A) 0 - 5 /HPF 08/14/2025 9:41 AM CDT [facility] Bacteria Many(A) None Seen /HPF 08/14/2025 9:41 AM T [facility] Squamous Epithelial Cells Few None Seen, Occasiona l, Few /HPF 08/14/2025 9:41 AM T [facility] White Blood Cell Clumps Present(A) None Seen /HPF 08/14/2025 9:41 AM T [facility] Urine URINE SPECIMEN COLLECTION, CLEAN CATCH / Unknown Non-blood Collection / Unknown 08/14/2025 9:10 AM CDT 08/14/2025 9:19 AM CDT us Jumana Gracia PA-C LAB_1 Final Res ult [facility] CLIA: [id number] [address] [place] [address], [facility] from Last 3 Months Insurance [employer] Care Teams Internal Medicine Veterinary Technician Relationship Specialty Start Date End Date Found, No Pcp, [address] [place] [address] PCP - General 03/01/25
[2025-08-14 10:54] VITALS: BP 157/81; PULSE 72; RESP 18; TEMP 36.7; O2SAT 98
--- NOTE | 2025-08-14 11:36 | CRLHL7_ITS ---
For Patients: As a result of the 21st Century Cures Act, medical imaging exams and procedure reports are released immediately into your electronic medical record. You may view this report before your referring provider. If you have questions, please contact your health care provider. Indication: 30-year-old with right flank and suprapubic pain. Patient thinks she passed a stone. Technique: Routine enhanced abdomen and pelvis protocol with 112 mL Isovue 370 IV contrast. Comparison: None. Findings : Lung bases: No findings for active disease. Liver: Normal in caliber and attenuation. No masses. Gallbladder and bile ducts: Unremarkable. No dilation. Pancreas: Unremarkable. Spleen: Normal in caliber. No masses. 13.6 cm. Adrenal glands: Unremarkable. No masses. Kidneys: Multiple bilateral nonobstructing renal calculi measuring 3 millimeters or less. No dilation of the intrarenal collecting systems or ureters. No focal renal abnormalities. No perinephric stranding. GI tract: Normal in caliber and appearance. No sign of mass or inflammation. Appendix: No acute appendicitis. Lymph nodes: No lymphadenopathy. Aorta and vessels: No aneurysm or severe stenosis. Omentum/peritoneum/retroperitoneum: No masses or infiltration. No free air or significant free fluid. Pelvic organs: Unremarkable. Heterogeneous uterus, suspect uterine fundal fibroid. Normal ovaries. Bladder: Normal. No stones. Bones: No fractures or suspicious bone lesions. Soft Tissues: No mass lesions or significant hernias. Impression: 1. Multiple bilateral nonobstructing renal calculi measuring 3 millimeters or less. No ureteral or bladder calculi. 2. No hydroureteronephrosis. 3. Suspect uterine fundal fibroid. Please note that all CT scans at this facility use dose modulation, iterative reconstruction, and/or weight-based dosing when appropriate to reduce radiation dose to as low as reasonably achievable. Dictated by Jeffry Law MD @ 08/14/2025 12:07:14 PM (Electronically Signed)
--- NOTE | 2025-08-14 11:56 | ED.GENADULT ---
HPI - General Adult General Date Seen: 08/14/25 Chief complaint: Urogenital Problems, Female Stated complaint: Kidney stones Time Seen by Provider: 08/14/25 11:05 Source: patient Mode of arrival: ambulatory Limitations: no limitations History of Present Illness HPI narrative: Patient is a 30-year-old female who is currently 16 days presenting to the emergency department for dysuria. She states she started having dysuria on the and wall her urinalysis does not show a clear UTI she was started on Macrobid a couple days ago. Symptoms have not been getting better and then today she states while she was urinating she had sharper pain then believe she passed the stone as there was a stone in the toilet. No history of previous nephrolithiasis. States she has a very mild right flank pain that has started over the past couple days. Urine is darker than it was last week. She tried to go to urgent care but was told to come to the emergency department for further evaluation. She has had a small amount of at since her vaginal delivery. She only has her pain though when she urinates and states is a sharp pain. Does have some mild discomfort to the suprapubic region. No other concerns noted. Related Data Home Medications ?Medication ?Instructions ?Recorded ?Confirmed prenat.vits,heidy,erp-unwe-yejbt 1 tab PO QDAY 10/28/22 08/14/25 docusate sodium 50 mg capsule 50 mg PO QDAY 01/17/25 08/14/25 polyethylene glycol 3350 17 4 g PO ONCE 06/19/25 08/14/25 gram/dose oral powder (Miralax) Previous Rx's ?Medication ?Instructions ?Recorded fluconazole 150 mg tablet 150 mg PO ONCE #2 tabs 08/11/25 nitrofurantoin 100 mg PO BID 7 days #14 caps 08/11/25 monohydrate/macrocrystals 100 mg capsule (Macrobid) cefpodoxime 200 mg tablet 200 mg PO Q12H #20 tabs 08/14/25 Allergies Allergy/AdvReac Type Severity Reaction Status Date / Time No Known Drug Allergies Allergy Verified 08/14/25 11:01 Review of Systems Status of ROS: Reports: 10 or more systems reviewed and unremarkable except as noted in History and below PFSH PFS Medical History Polyhydramnios in diaz in third trimester ?O40.3XX0 - Polyhydramnios, third trimester, not applicable or unspecified (ICD-10) Velamentous insertion of umbilical cord ?O43.129 - Velamentous insertion of umbilical cord, unspecified trimester (ICD-10) History of chorioamnionitis ?Z87.59 - Personal history of other complications of , childbirth and the puerperium (ICD-10) Episode of syncope ?R55 - Syncope and collapse (ICD-10) Surgical History H/O section ?Z98.891 - History of uterine scar from previous surgery (ICD-10) [place] teeth removed ?K08.409 - Partial loss of teeth, unspecified cause, unspecified class (ICD-10) Hx of tonsillectomy ?Z90.89 - Acquired absence of other organs (ICD-10) Family History Mother High blood pressure Depression High cholesterol Fibromyalgia Father Alcohol dependence Prostate cancer Brother No problems noted. 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 [employer] Work[employer] Lives with: David, and son Pets: 2 dogs Abuse: Denies past/present Special Diet: Denies Ok with a blood transfusion: yes Culture or druze beliefs: denies RISK FACTORS Exercise Times/wk: 3x/week walking Depression/Anxiety: Depression Seat Belt Use: Routinely Smoking: Denies past/present Alcohol/day: Denies while ; Social Caffeine: 1 pop or coffee per day Drug Use: Denies past/present Chicken Pox: Not as a child, vaccinated MRSA: Denies What is your current living situation?: I presently have a place to live Problems where you live: no known problems In the past 12 months, utilities in danger of being shut off: no In past 12 months, lack of transportation kept you from medical appts, meetings, work, or getting things needed for daily living: no In the past 12 mos, have been you worried that your food would run out before you had money to buy more?: never true In the past 12 mos, the food you bought just didn't last and you didn't have money to buy more?: never true Smoking Status: Never smoker How often do you have a drink containing alcohol: never How often do you have six or more drinks on one occasion: Never AUDIT-C Alcohol total score: 0 Non-prescribed substance use: denies use Caffeine: Yes How often does anyone, including family, friends and others, physically hurt you: never How often does anyone, including family, friends and others, insult or talk down to you: never How often does anyone, including family, friends and others, threaten you with harm: never How often does anyone, including family, friends and others, scream or curse at you: never Exam Narrative: Exam Narrative: Const: Well-nourished, Well-developed, in mild distress Eyes: PERRL, no conjunctival injection, and symmetrical lids HENT: Atraumatic external nose and ears. Moist mucous membranes. Neck: Symmetric, trachea midline, No thyromegaly. CVS: RRR, No murmurs or gallops. Peripheral pulses 2+ and equal in all extremities RESP: Unlabored respiratory effort. Clear to auscultation bilaterally. GI: Mild suprapubic tenderness, Nondistended, No rebound or guarding. Mild right flank tenderness MSK:Extremities w/o deformity, Normal Active ROM Skin: Warm, Dry. No rashes or lesions. Neuro: Normal Muscle tone, No focal neurological deficits. Psych: Awake, Alert, & Oriented x3. Appropriate mood and affect. Const: Vital Signs, click to edit/add: Vital Signs - 24 hr 08/14/25 10:54 Temperature 98.1 F Pulse Rate [Right Pulse Oximeter] 72 Respiratory Rate 18 Blood Pressure [Ri ght Upper Arm] 157/81 H Pulse Oximetry 98 Oxygen Delivery Me thod Room Air Course Vital Signs Vital signs: Initial Vital Signs Temperature 98.1 F 08/14/25 10:54 Temperature Source Temporal Artery Scan 08/14/25 10:54 Pulse Rate 72 08/14/25 10:54 Pulse Rhythm Regular 08/14/25 10:54 Pulse Strength 3+ Normal 08/14/25 10:54 Respiratory Rate 18 08/14/25 10:54 Blood Pressure 157/81 H 08/14/25 10:54 Blood Pressure Mean 106 H 08/14/25 10:54 Blood Pressure Position Sitting 08/14/25 10:54 Pulse Oximetry 98 08/14/25 10:54 Oxygen Delivery Method Room Air 08/14/25 10:54 Vital Signs Temperature 98.1 F 08/14/25 10:54 Pulse Rate 72 08/14/25 10:54 Respiratory Rate 18 08/14/25 10:54 Blood Pressure 157/81 H 08/14/25 10:54 Pulse Oximetry 98 08/14/25 10:54 Oxygen Delivery Method Room Air 08/14/25 10:54 Temperature 98.1 F 08/14/25 10:54 Pulse Rate 72 08/14/25 10:54 Respiratory Rate 18 08/14/25 10:54 Blood Pressure 157/81 H 08/14/25 10:54 Pulse Oximetry 98 08/14/25 10:54 Oxygen Delivery Method Room Air 08/14/25 10:54 Medical Decision Making MDM Narrative Medical decision making narrative: Patient is a 30-year-old female presenting to the emergency department for concerns of a UTI and right flank pain. With her recent and the suprapubic pain there is some slight concerned about urine issue but considering her pain is only when she urinates this does seem less likely. Also sounds like she recently passed a stone I do believe a CT scan is indicated for better evaluation for possible stone. Will do it with contrast to help look for signs of pyelonephritis. Repeat urinalysis will be done. I spoke to her about doing an ultrasound for better evaluation of the uterus but at this time using shared decision-making will wait to do that and told rest of her lab work and imaging is done as we may get an alternative diagnosis and not need to do the ultrasound. CBC, CMP, urinalysis, CT scan all ordered. Lab work shows clear signs of a UTI but no other concerning abnormalities. CT scan reviewed by myself and the radiologist shows multiple nonobstructing bilateral kidney stones but no other concerning abnormalities. There is suspected uterine fundal fibroid. She has been on Macrobid for couple days foot considering the UTI has gotten worse I will switch her to cefpodoxime. This is safe for . She is agreeable to this plan. Lab Data Labs: Lab Results 08/14/25 08/14/25 Range/Units 11:50 12:08 WBC 7.45 (4.50-11.00) K/uL RBC 3.77 L (4.00-5.20) m/uL Hgb 10.7 L (12.0-16.0) gm/dL Hct 34.2 (33.0-51.0) % MCV 91 (80-100) fL MCH 28 (26-34) pg MCHC 31 L (32-36) gm/dL RDW Coeff of Joseph 13.6 (11.5-15.5) % Plt Count 408 (140-440) K/uL Neut % (Auto) 64.8 (42.0-72.0) % Lymph % (Auto) 27.7 (20-44) % [place] % (Auto) 5.0 (0.0-11.0) % Eos % (Auto) 1.9 (0.0-7.0) % Baso % (Auto) 0.5 (0.0-3.0) % Neut # (Auto) 4.83 (1.7-7.0) K/uL Lymph # (Auto) 2.06 (0.90-2.90) K/uL [place] # (Auto) 0.40 (0.00-0.90) K/UL Eos # (Auto) 0.14 (0.00-0.50) K/uL Baso # (Auto) 0.04 (0.00-0.30) K/uL Abs Immat Gran (auto) 0.01 (0.00-0.30) K/uL Imm/Tot Granulo (auto) 0.1 % Sodium 135 (135-149) mmol/L Potassium 3.8 (3.6-5.1) mmol/L Chloride 106 (96-114) mmol/L Carbon Dioxide 22 (20-32) mmol/L Anion Gap 7 (7-15) mEq/L BUN 18 (5-24) mg/dL Creatinine 0.8 (0.5-1.5) mg/dL Estimated GFR 103 ml/min Glucose 98 (60-115) mg/dL Calcium 9.4 (8.4-10.6) mg/dL Total Bilirubin 0.4 (0.1-1.5) mg/dL AST 23 (12-35) U/L ALT 15 (4-35) U/L Alkaline Phosphatase 84 (40-150) U/L Total Protein 6.9 (6.0-8.3) g/dL Albumin 4.1 (3.3-5.0) g/dL Urine Color Yellow (Yellow) Urine Appearance Cloudy A (Clear) Urine pH 6.0 (5.0-8.5) Ur Specific [place] 1.015 (1.000-1.030) Urine Protein 1+ A (Negative) Urine Glucose (UA) Negative (Negative) Urine Ketones Negative (Negative) Urine Blood 3+ A (Negative) Urine Nitrite Negative (Negative) Urine Bilirubin Negative (Negative) Urine Urobilinogen 0.2 (0.2-1.0) Ur Leukocyte Esterase 3+ A (Negative) Urine RBC >100 A (0-2) Urine WBC >100 A (0-5) Urine WBC Clumps Moderate A (None) Ur Squamous Epith Cells Few (None-Few) Urine Bacteria Many A (None) Imaging Data CT scan abdomen and pelvis: Attestation: I have reviewed the pertinent imaging results. Radiologist's impression: 1. Multiple bilateral nonobstructing renal calculi measuring 3 millimeters or less. No ureteral or bladder calculi. 2. No hydroureteronephrosis. 3. Suspect uterine fundal fibroid. Please note that all CT scans at this facility use dose modulation, iterative reconstruction, and/or weight-based dosing when appropriate to reduce radiation dose to as low as reasonably achievable. Dictated by Jeffry Law MD @ 08/14/2025 12:07:14 PM Discharge Plan Discharge Clinical Impression: Urinary tract infection Qualifiers: Urinary tract infection type: acute cystitis Hematuria presence: with hematuria Qualified Code(s): N30.01 - Acute cystitis with hematuria Patient Disposition: Home, Self-Care Condition: Stable Instructions: Urinary Tract Infection in Women (DC) Additional Instructions: You clearly have a urinary tract infection I will switch you from Macrobid to cefpodoxime. Take the medication for 10 days. Follow-up with your primary care provider. CT scan did show a suspected uterine fundal fibroid. These commonly do not require further intervention but she should follow-up with your OB/inventory transcriber about it. Return to the emergency department for new or worsening symptoms. Prescriptions: New cefpodoxime 200 mg tablet 200 mg PO Q12H Qty: 20 0RF Rx Instructions: must administer with a meal/food No Action prenat.vits,heidy,bir-oojl-enfdk Tablet 1 tab PO QDAY docusate sodium 50 mg capsule 50 mg PO QDAY polyethylene glycol 3350 [Miralax] 17 gram/dose powder 4 g PO ONCE nitrofurantoin monohyd/m-cryst [Macrobid] 100 mg capsule 100 mg PO BID 7 Days Qty: 14 0RF Rx Instructions: must administer with a meal/food fluconazole 150 mg tablet 150 mg PO ONCE Qty: 2 0RF Rx Instructions: May repeat in 72 hours if symptoms are not resolved. Follow Up/Referrals: Provider,Not a Local [Primary Care Provider, Family Practice] Stand Alone Forms: MyHealth Info Instructions
[2025-08-14 11:58] LABS: Hematocrit* 34.2 % (33.0-51.0); Hemoglobin* 10.7 gm/dL (12.0-16.0); Immature Granulocytes Abs Auto 0.01 K/uL (0.00-0.30); Immature Granulocytes Pct Auto 0.1 %; Lymphocytes Absolute Auto 2.06 K/uL (0.90-2.90); Mean Corpuscular HGB Conc 31 gm/dL (32-36); Mean Corpuscular Hemoglobin 28 pg (26-34); Mean Corpuscular Volume 91 fL (80-100); RDW Coefficient of Variation % 13.6 % (11.5-15.5); Red Blood Count* 3.77 m/uL (4.00-5.20); White Blood Count* 7.45 K/uL (4.50-11.00)
[2025-08-14 12:01] LABS: Slide Review Reflex No
[2025-08-14 12:07] LABS: Albumin* 4.1 g/dL (3.3-5.0); Chloride* 106 mmol/L (96-114); Sodium* 135 mmol/L (135-149)
[2025-08-14 12:08] LABS: Potassium* 3.8 mmol/L (3.6-5.1)
[2025-08-14 12:10] LABS: Alanine Aminotransferase* 15 U/L (4-35); Alkaline Phosphatase* 84 U/L (40-150); Anion Gap 7 mEq/L (7-15); Aspartate Amino Transferase* 23 U/L (12-35); Bilirubin Total* 0.4 mg/dL (0.1-1.5); Blood Urea Nitrogen* 18 mg/dL (5-24); Carbon Dioxide* 22 mmol/L (20-32); Creatinine* 0.8 mg/dL (0.5-1.5); Estimated Glomerular Filt Rate 103 ml/min; Total Protein* 6.9 g/dL (6.0-8.3)
[2025-08-14 12:11] LABS: Calcium* 9.4 mg/dL (8.4-10.6); Glucose* 98 mg/dL (60-115)
[2025-08-14 12:27] LABS: Appearance Urine Cloudy (Clear)
== END 2025-08-14 13:36 | disposition home or self-care (01) ==
PROVIDERS: Emergency Provider Student in an Organized Health Care Education/Training Program
DX: N39.0 Urinary tract infection, site not specified (principal)
CPT/HCPCS: 36415; 74177; 80053; 81001; 85025; 87086; 99284; 99285; Q9967